=== PATIENT | female | born 1960 | race Caucasian/White ===

== ENCOUNTER 2020-12-06 19:51 | Emergency (ER) | payer MEDICARE, OTHER ==
[~2020-12-06] VITALS: Ht 162.6 cm; Wt 4812.6 kg
[~2020-12-06 19:51] MED LIST: ADVAIR 250-501 EACH INH; AMOXICILLIN500 MG PO; CLINDAMYCIN HC300 MG PO; DULOXETINE HCL60 MG PO; GABAPENTIN300 MG PO; IBUPROFEN600 MG PO; IBUPROFEN800 MG PO; MAGNESIUM400 MG PO; NABUMETONE750 MG PO; PROAIR HFA8.5 GM INH; SERTRALINE HCL100 MG PO; TYLENOL325 MG PO; VITAMIN B122500 MCG PO
--- NOTE | 2020-12-07 18:11 | EKG ---
[facility] [address] [place], [place] [address] Signed Normal sinus rhythm Normal ECG No previous ECGs available Confirmed by ANSHU DE LA TORRE MD ([id number]) on 12/07/2020 6:11:14 PM Electronically Signed By: ANSHU DE LA TORRE MD 12/07/201810 PATIENT NAME: VON SÁNCHEZ PARIS Electrocardiogram DATE OF : 58 PHYSICIAN: ANSHU DE LA TORRE MD REPORT #: [id number] REPORT IS CONFIDENTIAL AND NOT TO BE RELEASED WITHOUT AUTHORIZATION
== END 2020-12-06 21:34 | disposition home or self-care (01) ==
LOC: ED 19:51
DX: J44.1 Chronic obstructive pulmonary disease with (acute) exacerbation (principal); G40.909 Epilepsy, unspecified, not intractable, without status epilepticus; F17.200 Nicotine dependence, unspecified, uncomplicated; Z88.8 Allergy status to other drugs, medicaments and biological substances; Z79.899 Other long term (current) drug therapy
CPT/HCPCS: 71045; 80053; 84484; 85025; 93005; 93010; 99285-25

== ENCOUNTER 2021-04-11 16:26 | Emergency (ER) | payer MEDICARE, OTHER ==
[~2021-04-11] VITALS: Ht 162.6 cm; Wt 49.9 kg
--- OUTSIDE RECORDS SUMMARY | 2021-04-11 16:28 | XMS ---
PreManage Notification: VON SÁNCHEZ Security General Agent Events No recent Security Events currently on file CRITERIA MET - PDMP CARE PROVIDERS TEVIN [facility] Current PHONE: Unknown Curly has no Care Guidelines for this patient. EAleks VISIT COUNT (12 MO.) 2 TARI Fernando TOTAL 2 NOTE: Visits indicate total known visits. ED/UCC VISIT TRACKING (12 MO.) 04/11/2021 16:27 [facility] [place] TYPE: Emergency COMPLAINT: - HEADACHE 12/06/2020 19:52 [facility] [place] TYPE: Emergency COMPLAINT: - DIFFICULTY BREATHING DIAGNOSES: - Chronic obstructive pulmonary disease with (acute) exacerbation - Nicotine dependence, unspecified, uncomplicated - Epilepsy, unspecified, not intractable, without status epilepticus - Other residential (current) drug therapy - Shortness of breath - Allergy status to other drugs, medicaments and biological substances INPATIENT VISIT TRACKING (12 MO.) No inpatient visits to display in this time frame [email or web address]
--- NOTE | 2021-04-13 15:16 | EKG ---
[facility] [address] [facility] [facility] [place] [address] Signed Normal sinus rhythm Possible Left atrial enlargement Anterior infarct , age undetermined Abnormal ECG When compared with ECG of 06-DEC-2020 20:25, ST no longer elevated in Anterior leads T wave inversion now evident in Anterior leads Confirmed by ANGELIQUE DRAKE MD ([id number]) on 04/13/2021 3:16:26 PM Electronically Signed By: ANGELIQUE DRAKE MD 04/13/21 1516 PATIENT NAME: VON SÁNCHEZ PARIS Electrocardiogram DATE OF : 58 PHYSICIAN: ANGELIQUE DRAKE MD REPORT #: [id number] REPORT IS CONFIDENTIAL AND NOT TO BE RELEASED WITHOUT AUTHORIZATION
== END 2021-04-11 18:22 | disposition short-term general hospital (02) ==
LOC: ED 16:26
DX: I60.7 Nontraumatic subarachnoid hemorrhage from unspecified intracranial artery (principal); J44.9 Chronic obstructive pulmonary disease, unspecified; M06.9 Rheumatoid arthritis, unspecified; G43.909 Migraine, unspecified, not intractable, without status migrainosus; F17.200 Nicotine dependence, unspecified, uncomplicated; Z20.822 Contact with and (suspected) exposure to COVID-19; Z88.8 Allergy status to other drugs, medicaments and biological substances; Z79.899 Other long term (current) drug therapy; Z79.51 Long term (current) use of inhaled steroids
CPT/HCPCS: 36415; 70450; 70496; 70498; 71045; 80053; 85025; 85610; 85730; 93005; 93010; 96375; 99285-25; C9803; J1953; J2405; J7060; U0003

== ENCOUNTER 2021-07-13 04:30 | Inpatient (IN) | payer MEDICARE, OTHER ==
[~2021-07-13] VITALS: Ht 162.6 cm; Wt 50.0 kg
[~2021-07-13 04:30] MED LIST changes: +VITAMIN B122500 MC1 PO; -VITAMIN B122500 MCG PO
[2021-07-13] MEDS ORDERED: SEROQUEL100 MG PO (07:14)
[2021-07-13] MEDS ORDERED: VISTARIL25 MG PO (07:14)
[2021-07-13] MEDS ORDERED: CYCLOBENZAPRINE10 MG PO (07:15)
[2021-07-13] MEDS ORDERED: PULMICORT0.5 MG/2 M INH (07:15)
[2021-07-13] MEDS ORDERED: DRIZALMA SPRINK60 MG PO (07:16)
[2021-07-13] MEDS ORDERED: FORMOTEROL20 MCG/2 M (07:17)
[2021-07-13] MEDS ORDERED: ANORO ELLIPTA1 EACH INH (07:18)
[2021-07-13] MEDS ORDERED: TRELEGY ELLIPT1 EAC1 (07:18)
--- NOTE | 2021-07-13 08:30 | NUR ---
PT ADMITTED TO CCU ROOM 129 FOR ALTERED MENTAL STATUS/HYPERCARBIA. PT ARRIVED ON 3L/NC, RT WHEELING IN BIPAP. PT AWAKENS ON HER OWN STAFF START UNHOOKING THE MONITOR AND THEN SLIDES HERSELF OVER TO THE BED FROM THE GURNEY. ANSWERS A FEW BRIEF QUESTIONS, STATES NO NOT IN PAIN, YES SHE IS COLD, AND THEN GOES BACK TO SLEEP. TRIED TO AROUSE THE PATIENT AGAIN TO HAVE HER ANSWER ADMISSION QUESTIONS AND THE MOST SHE WILL DO IS MOVE HER HEAD A LITTLE AND REPOSITION HER BODY. ASSESSMENT DONE, LUNGS HAVE A FEW SCATTERED RHONCHI. SPO2 95% ON 3L, HAD BEEN 90% ON ROOM AIR. VSS, PT AFEBRILE.
--- NOTE | 2021-07-13 09:04 | NUR ---
BIPAP PLACED, 12/6 40%. THIS RN REMAINS AT BEDSIDE WHILE PT WEARING BIPAP.
[2021-07-13] MEDS ORDERED: DULOXETINE HCL30 MG PO (09:09)
--- NOTE | 2021-07-13 10:00 | NUR ---
BP'S HAVE DROPPED A BIT, LAST BP 84/50 MAP (66). DISCUSSED WITH DR CARMICHAEL, WILL START NS BOLUS AT 250ML/HR AND PLACE CATHETER FOR URINE COLLECTION TO SEND UA PT IS STILL VERY SOMNOLENT AND DIFFICULT TO AROUSE.
--- NOTE | 2021-07-13 10:35 | NUR ---
UA SENT AFTER PLACEMENT OF CABAN USING STERILE TECHNIQUE, BALLOON FILLED WITH 10CC WATER.
--- NOTE | 2021-07-13 12:00 | NUR ---
DAUGHTER IN TO SEE PT, PT EVENTUALLY WAKES UP FOR DAUGHTER AND IS NOW SITTING UP IN BED TALKING WITH HER, ALERT AND ORIENTED. WATER GIVEN PER REQUEST, PT HAD NO DIFFICULTY SWALLOWING. BOTH PT AND DAUGHTER UPDATED ON PLAN OF CARE AND ORDER FOR MRI FOR TOMORROW.
--- NOTE | 2021-07-13 13:12 | NUR ---
PT SITTING UP IN BED ENJOYING HER LUNCH, NO REQUESTS.
--- NOTE | 2021-07-13 15:00 | NUR ---
IN TO CHECK ON PT, ANSWER SOME QUESTIONS REGARDING PLAN. PT BECOMES VERY EMOTIONAL REGARDING HER METH USE AND OTHER LIFE ISSUES. REASSURED AND QUESTIONS ANSWERED.
--- NOTE | 2021-07-13 16:55 | NUR ---
PT ASSISTED WITH SITTING UP FOR DINNER.
--- NOTE | 2021-07-13 18:42 | NUR ---
DR CARMICHAEL ROUNDING ON UNIT, UPDATED ON PT STATUS, ORDER GIVEN TO TRANSFER PT TO MED SURG. SHOT FIREMAN NOTIFIED, PLAN TO KEEP PT HOUSE CONVENIENCE IN CCU FOR NOW. PT UPDATED WELL.
--- NOTE | 2021-07-13 18:45 | NUR ---
CABAN DC'D WITH 10CC WATER OUT OF THE BALLOON.
--- NOTE | 2021-07-13 20:00 | NUR ---
RECEIVED REPORT FROM DAY SHIFT RN. PT LAYING IN BED, REPORTS SOME SOB. EXP WHEEZING AUDIBLE. R.T IN ROOM TO GIVE PRN NEB TREATMENT. PT HAS BEEN UP TO BSC, VOIDED POST MEE PATRICK. CALL LIGHT WITHIN REACH CONTINUE TO MONITOR.
--- NOTE | 2021-07-13 21:20 | NUR ---
PT REQUESTING A PRN MED FOR SLEEP TRAZADONE. RESP EVEN AND UNLABORED CALL LIGHT WITHIN REACH WILL CONTINUE TO MONITOR.
--- NOTE | 2021-07-13 23:59 | NUR ---
PT SLEEPING IN BED IN NO ACUTE DISTRESS. PT RESP EVEN AND UNLABORED, CALL LGHT WITHIN REACH WILL CONTINUE TO MONITOR.
--- NOTE | 2021-07-14 02:21 | NUR ---
PT LAYING IN BED WITH EYES CLOSED , NO S.SX OF ANY DISTRESS NOTED. CALL LIGHT WITHIN REACH WILL CONTINUE TO MONITOR.
--- NOTE | 2021-07-14 04:34 | NUR ---
ASSISTED PT UP TO BSC, REPORTS SLEEPING WELL. VSS RSP EVEN AND UNLABORED. NO S/SX OF ANY DISTRESS. CALL LIGHT WITHIN REACH WILL CONTINUE TO MONITOR.
--- NOTE | 2021-07-14 08:00 | NUR ---
VITALS AND I&OS CHARTED. PATIENT UP TO BSC FOR VOID. PATIENT NOW SITITNG IN BED FOR BREAKFAST. CALL LIGHT IN EASY REACH
--- NOTE | 2021-07-14 08:43 | NUR ---
FAX WAS SENT TO [facility] REQUESTING INFO ON ANEURYSM CLIP.
--- NOTE | 2021-07-14 09:16 | NUR ---
DR CARMICHAEL IN TO SEE PT
--- NOTE | 2021-07-14 09:34 | NUR ---
PT UP TO USE BATHROOM FOR BOWEL MOVEMENT, BACK TO BED WITH CALL LIGHT IN HAND.
--- NOTE | 2021-07-14 10:00 | NUR ---
PATIENT LOOKING FORWARD TO DISCHARGE. TIP RECIEVED EARLIER FROM DR. CARMICHAEL FOR DISCHARGE TO HOME. O2 IN PLACE.
[2021-07-14] MEDS ORDERED: PREDNISONE20 MG PO (10:02)
[2021-07-14] MEDS ORDERED: SPIRIVA18 MCG INH (10:03)
[2021-07-14] MEDS ORDERED: ADVAIR 250-501 EACH INH (10:04)
--- NOTE | 2021-07-14 10:07 | NUR ---
Anna Marie is teary this morning regarding her decision to use meth. She states that she is no longer able to take care of herself at home. She states because of her shortness of breath she cannot prepare meals, do her laundry or clean her house. She states that her daughter does come over and help her. Her daughter also manages her medications and fills her pills for 30 days. She feels that she has a hard time making decisions, she also worries about money and again is rearful this morning. She states her daughter can pick her up today. Patient does feel that her care has been very good here in the hospital and has no care concerns. Pt encouraged to rest at this time and work on her thoughts and plans for discharge to home. Will attempt to get a care provider locally.
--- NOTE | 2021-07-14 12:00 | NUR ---
SITTNG UP IN BED FOR LUNCH. IS DRESSED, AWAITING RIDE HOME FROM DAUGHTER. PATIENT IS WITH INCREASED WOB WITH TALKING AND EXERTION. ENC PATIENT TO RELAX.
--- NOTE | 2021-07-14 13:00 | NUR ---
IV SITE DC'D WITH CATH INTACT.
--- NOTE | 2021-07-14 13:20 | NUR ---
DISCHARGE INSTRUCTIONS GIVEN WITH PATIENT DAUGHTER UNDERSTANDING.
--- NOTE | 2021-07-14 13:25 | NUR ---
DISCHARGED VIA W/C TO HOME ACCOMP BY DAUGHTER AND NURSING STAFF.
--- NOTE | 2021-07-15 19:05 | EKG ---
[facility] [address] [place] [address] Signed Normal sinus rhythm Rightward axis Borderline ECG When compared with ECG of 11-APR-2021 16:49, Non-specific change in ST segment in Anterior leads T wave inversion no longer evident in Anterior leads Confirmed by ANGELIQUE DRAKE MD ([id number]) on 07/15/2021 7:04:52 PM Electronically Signed By: ANGELIQUE DRAKE MD 07/15/21 1905 PATIENT NAME: VON SÁNCHEZ PARIS Electrocardiogram DATE OF : 58 PHYSICIAN: ANGELIQUE DRAKE MD REPORT #: [id number] REPORT IS CONFIDENTIAL AND NOT TO BE RELEASED WITHOUT AUTHORIZATION
== END 2021-07-14 13:25 | disposition home or self-care (01) | DRG 91 ==
LOC: ED 04:30 → CCU 07:41
PROVIDERS: ADMIT Hospitalist; ATTEND Hospitalist
PROC: 5A09357 Assistance with Respiratory Ventilation, Less than 24 Consecutive Hours, Continuous Positive Airway Pressure (ICD-10-PCS; principal; 2021-07-13)
DX: G92.8 Other toxic encephalopathy (principal); J96.22 Acute and chronic respiratory failure with hypercapnia; J44.1 Chronic obstructive pulmonary disease with (acute) exacerbation; Z20.822 Contact with and (suspected) exposure to COVID-19; T50.995A Adverse effect of other drugs, medicaments and biological substances, initial encounter; R47.81 Slurred speech; F19.10 Other psychoactive substance abuse, uncomplicated; M54.9 Dorsalgia, unspecified; M06.9 Rheumatoid arthritis, unspecified; F15.10 Other stimulant abuse, uncomplicated; R10.9 Unspecified abdominal pain; K08.89 Other specified disorders of teeth and supporting structures; F12.10 Cannabis abuse, uncomplicated; G89.29 Other chronic pain; F17.200 Nicotine dependence, unspecified, uncomplicated; Z99.81 Dependence on supplemental oxygen; Z79.899 Other long term (current) drug therapy; Z98.890 Other specified postprocedural states; Z88.8 Allergy status to other drugs, medicaments and biological substances
CPT/HCPCS: 36415; 36600; 51702; 70450; 70496; 70498; 71045; 80053; 81001; 82803; 85025; 85610; 85730; 87502; 93005; 93010; 94640; 94660; 99285-25; G0480; J2930; J7030; Q9967; U0003

== ENCOUNTER 2021-11-12 12:53 | Emergency (ER) | payer MEDICARE, OTHER ==
[~2021-11-12] VITALS: Ht 162.6 cm; Wt 49.9 kg
[~2021-11-12 12:53] MED LIST changes: +ANORO ELLIPTA1 EACH INH; +CYCLOBENZAPRINE10 MG PO; +DRIZALMA SPRINK60 MG PO; +DULOXETINE HCL30 MG PO; +FORMOTEROL20 MCG/2 M; +PREDNISONE20 MG PO; +PULMICORT0.5 MG/2 M INH; +SEROQUEL100 MG PO; +SPIRIVA18 MCG INH; +TRELEGY ELLIPT1 EAC1; +VISTARIL25 MG PO
--- OUTSIDE RECORDS SUMMARY | 2021-11-12 12:56 | XMS ---
PreManage Notification: VON SÁNCHEZ Security Salesperson Meats Events No recent Security Events currently on file CRITERIA MET - ANA LAURA CARE PROVIDERS ColinNadine Pipe Stem Aligner/Clinical Services Professional 09/08/2021-Current PHONE: [phone] PHOEBE ABARCA [facility] Current PHONE: Unknown Curly has no Care Guidelines for this patient. EAleks VISIT COUNT (12 MO.) Thomas Fernando TOTAL 4 NOTE: Visits indicate total known visits. ED/UCC VISIT TRACKING (12 MO.) 11/12/2021 12:54 [facility] OR TYPE: Emergency COMPLAINT: - DIFFICULTY BREATHING 07/13/2021 04:31 [facility] [place] TYPE: Emergency COMPLAINT: - STROKE SYMPTOMS 04/11/2021 16:27 [facility] [place] TYPE: Emergency COMPLAINT: - HEADACHE DIAGNOSES: - oysterman (current) use of inhaled steroids - Nicotine dependence, unspecified, uncomplicated - Rheumatoid arthritis, unspecified - Contact with and (suspected) exposure to COVID-19 - Altered mental status, unspecified - Migraine, unspecified, not intractable, without status migrainosus - Other intermediate (current) drug therapy - Chronic obstructive pulmonary disease, unspecified - Allergy status to other drugs, medicaments and biological substances - Nontraumatic subarachnoid hemorrhage from unspecified intracranial artery 12/06/2020 19:52 [facility] [place] TYPE: Emergency COMPLAINT: - DIFFICULTY BREATHING DIAGNOSES: - Epilepsy, unspecified, not intractable, without status epilepticus - Chronic obstructive pulmonary disease with (acute) exacerbation - Allergy status to other drugs, medicaments and biological substances - Other intermediate (current) drug therapy - Nicotine dependence, unspecified, uncomplicated - Shortness of breath INPATIENT VISIT TRACKING (12 MO.) 07/13/2021 07:41 [facility] TYPE: Critical Care COMPLAINT: - ALTERED MENTAL STATUS/HYPERCARBIA DIAGNOSES: - Other specified disorders of teeth and supporting structures - Allergy status to other drugs, medicaments and biological substances - Chronic obstructive pulmonary disease with (acute) exacerbation - Nicotine dependence, unspecified, uncomplicated - Adverse effect of other drugs, medicaments and biological substances, initial encounter - Acute and chronic respiratory failure with hypercapnia - Other stimulant abuse, uncomplicated - Contact with and (suspected) exposure to COVID-19 - Adverse effect of other drugs, medicaments and biological substances, initial encounter - Dorsalgia, unspecified - Acute and chronic respiratory failure with hypercapnia - Slurred speech - Rheumatoid arthritis, unspecified - Dependence on supplemental oxygen - Slurred speech - Nicotine dependence, unspecified, uncomplicated - Other chronic pain - Allergy status to other drugs, medicaments and biological substances - Other toxic encephalopathy - Unspecified abdominal pain - Other psychoactive substance abuse, uncomplicated - Other psychoactive substance abuse, uncomplicated - Other chronic pain - Rheumatoid arthritis, unspecified - Contact with and (suspected) exposure to COVID-19 - Other specified disorders of teeth and supporting structures - Other intermediate (current) drug therapy - Cannabis abuse, uncomplicated - Unspecified abdominal pain - Cannabis abuse, uncomplicated - Other specified postprocedural states - Dependence on supplemental oxygen - Other stimulant abuse, uncomplicated - Other bed bug exterminator (current) drug therapy - Dorsalgia, unspecified - Other specified postprocedural states - Chronic obstructive pulmonary disease with (acute) exacerbation 04/11/2021 20:17 [facility] TYPE: Critical Care DIAGNOSES: - Delirium due to known physiological condition - Nontraumatic subarachnoid hemorrhage, unspecified - Compression of brain - Chronic obstructive pulmonary disease, unspecified - Other specified postprocedural states - Encephalopathy, unspecified - Hypertensive crisis, unspecified - Tobacco use - Other psychoactive substance dependence, uncomplicated - Nontraumatic intracerebral hemorrhage, intraventricular - Nontraumatic intracerebral hemorrhage in hemisphere, cortical - Cerebral edema - Post-traumatic stress disorder, unspecified - Restlessness and agitation - Fibromyalgia [email or web address]
[2021-11-12] MEDS ORDERED: VENTOLIN HFA18 GM (13:26)
[2021-11-12] MEDS ORDERED: PREDNISONE20 MG PO (15:30)
[2021-11-12] MEDS ORDERED: DOXYCYCLINE HY100 MG PO (15:30)
--- NOTE | 2021-11-16 17:04 | EKG ---
[facility] [address] [facility] [place] [address] Signed Normal sinus rhythm Right atrial enlargement Cannot rule out Anterior infarct , age undetermined Abnormal ECG When compared with ECG of 13-JUL-2021 04:45, No significant change was found Confirmed by Nell Blanco MD () on 11/16/2021 5:04:37 PM Electronically Signed By: NELL BLANCO MD 11/16/21 1704 PATIENT NAME: VON SÁNCHEZ PARIS Electrocardiogram DATE OF : 58 PHYSICIAN: NELL BLANCO MD REPORT #: [id number] REPORT IS CONFIDENTIAL AND NOT TO BE RELEASED WITHOUT AUTHORIZATION
== END 2021-11-12 16:02 | disposition home or self-care (01) ==
LOC: ED 12:53
DX: U07.1 COVID-19 (principal); J44.1 Chronic obstructive pulmonary disease with (acute) exacerbation; F41.9 Anxiety disorder, unspecified; G40.909 Epilepsy, unspecified, not intractable, without status epilepticus; F17.200 Nicotine dependence, unspecified, uncomplicated; Z88.8 Allergy status to other drugs, medicaments and biological substances; Z79.899 Other long term (current) drug therapy
CPT/HCPCS: 36415; 36600; 71045; 80053; 81001; 82803; 83605; 83735; 83880; 84484; 85025; 87070; 87186; 87205; 87502; 93005; 93010; 94640; 96374; 99285-25; J1100; U0003

== ENCOUNTER 2022-01-14 07:52 | Emergency (ER) | payer MEDICARE, OTHER ==
[~2022-01-14] VITALS: Ht 162.6 cm; Wt 50.0 kg
[~2022-01-14 07:52] MED LIST changes: +DOXYCYCLINE HY100 MG PO; +VENTOLIN HFA18 GM
[2022-01-14] MEDS ORDERED: HYDROXYZINE HCL25 MG PO (08:14)
[2022-01-14] MEDS ORDERED: TAMIFLU75 MG PO (11:45)
[2022-01-14] MEDS ORDERED: VENTOLIN HFA18 GM INH (11:45)
[2022-01-14] MEDS ORDERED: PREDNISONE20 MG PO (11:45)
== END 2022-01-14 12:13 | disposition left against medical advice (07) ==
LOC: ED 07:52
DX: J10.1 Influenza due to other identified influenza virus with other respiratory manifestations (principal); J44.1 Chronic obstructive pulmonary disease with (acute) exacerbation; G40.909 Epilepsy, unspecified, not intractable, without status epilepticus; F17.200 Nicotine dependence, unspecified, uncomplicated; Z88.8 Allergy status to other drugs, medicaments and biological substances; Z79.899 Other long term (current) drug therapy; Z20.822 Contact with and (suspected) exposure to COVID-19
CPT/HCPCS: 36415; 71045; 80053; 82803; 85025; 87502; 94640; 94660; 96374; 99285-25; C9803; J2930; J7040; U0003

== ENCOUNTER 2022-01-16 10:42 | Inpatient (IN) | payer MEDICARE, OTHER ==
[~2022-01-16] VITALS: Ht 162.6 cm; Wt 45.0 kg
[~2022-01-16 10:42] MED LIST changes: +HYDROXYZINE HCL25 MG PO; +TAMIFLU75 MG PO; +VENTOLIN HFA18 GM INH
--- OUTSIDE RECORDS SUMMARY | 2022-01-16 10:44 | XMS ---
PreManage Notification: VON SÁNCHEZ Security Combat Engineer Events No recent Security Events currently on file CRITERIA MET - [facility] - 2 Visits in 30 Days CARE PROVIDERS Parrish Arreola Manager Photo/Medical Tech 09/08/2021-Current PHONE: [phone] TEVIN [facility] Current PHONE: Unknown Curly has no Care Guidelines for this patient. EAleks VISIT COUNT (12 MO.) [address] [place] [address] TOTAL 5 NOTE: Visits indicate total known visits. ED/UCC VISIT TRACKING (12 MO.) 01/16/2022 10:42 [facility] TYPE: Emergency COMPLAINT: - DIFFICULTY BREATHING 01/14/2022 07:52 [facility] OR TYPE: Emergency COMPLAINT: - DIFFICULTY BREATHING 11/12/2021 12:54 [facility] TYPE: Emergency COMPLAINT: - DIFFICULTY BREATHING DIAGNOSES: - Nicotine dependence, unspecified, uncomplicated - Chronic obstructive pulmonary disease with (acute) exacerbation - Other penitentiary (current) drug therapy - Shortness of breath - COVID-19 - Epilepsy, unspecified, not intractable, without status epilepticus - Allergy status to other drugs, medicaments and biological substances - Anxiety disorder, unspecified 07/13/2021 04:31 [facility] TYPE: Emergency COMPLAINT: - STROKE SYMPTOMS 04/11/2021 16:27 [facility] TYPE: Emergency COMPLAINT: - HEADACHE DIAGNOSES: - Altered mental status, unspecified - Migraine, unspecified, not intractable, without status migrainosus - Other penitentiary (current) drug therapy - Chronic obstructive pulmonary disease, unspecified - Allergy status to other drugs, medicaments and biological substances - Nontraumatic subarachnoid hemorrhage from unspecified intracranial artery - [facility] (current) use of inhaled steroids - Nicotine dependence, unspecified, uncomplicated - Rheumatoid arthritis, unspecified - Contact with and (suspected) exposure to COVID-19 INPATIENT VISIT TRACKING (12 MO.) 07/13/2021 07:41 [facility] TYPE: Critical Care COMPLAINT: - ALTERED MENTAL STATUS/HYPERCARBIA DIAGNOSES: - Acute and chronic respiratory failure with [...] of teeth and supporting structures - Other long lines operator (current) drug therapy - Cannabis abuse, uncomplicated - Unspecified abdominal pain - Cannabis abuse, uncomplicated - Other specified postprocedural states - Dependence on supplemental oxygen - Other stimulant abuse, uncomplicated - Other long lines operator (current) drug therapy - Dorsalgia, unspecified - Other specified postprocedural states - Chronic obstructive pulmonary disease with (acute) exacerbation - Other specified disorders of teeth and [...] biological substances, initial encounter - Dorsalgia, unspecified 04/11/2021 20:17 [facility] TYPE: Critical Care DIAGNOSES: - Other specified postprocedural states - Encephalopathy, unspecified - Hypertensive crisis, unspecified - Tobacco use - Other psychoactive substance dependence, uncomplicated - Nontraumatic intracerebral hemorrhage, intraventricular - Nontraumatic intracerebral hemorrhage in hemisphere, cortical - Cerebral edema - Post-traumatic stress disorder, unspecified - Restlessness and agitation - Fibromyalgia - Delirium due to known physiological condition - Nontraumatic subarachnoid hemorrhage, unspecified - Compression of brain - Chronic obstructive pulmonary disease, unspecified [email or web address]
--- NOTE | 2022-01-16 18:10 | NUR ---
PATIENT ARRIVED TO CCU VIA STRETCHER FROM ED. WILLEM RN IN TO BEDSIDE REPORT. PATIENT TRANSFERED OVER TO BED WITH 2 RN ASSIST. PATIENT ON 3L. PATIENT IS ON 3L AT HOME PER REPROT. PATIENT IS FORGETFUL AND DIFFICULT TO UNDERSTAND. WILL CONTINUE TO CLOSELY MONITOR.
--- NOTE | 2022-01-16 19:45 | NUR ---
RN IN ROOM TO ASSESS PT - PT NOTED TO HAVE SIGNIFICANT ST ELEVATION ON HR MONITOR AT RN STATION. PT COMPLAINS OF 8/10 CHEST PAIN WHEN ASKED IF EXPERIENCING ANY. STATES SHE HAS HAD CHEST PAIN "FOR ABOUT A WEEK". OTHER VS NOTED TO WNL. SENIOR GAME ADVISOR NOTES TIGHT WHEEZING LUNG SOUNDS THROUGHOUT, ON 3L NC AT THIS TIME. PT APPEARS DROWSY AND SPEACH IS MUMBLED DUE TO LACK OF TEETH. MD NOTIFIED OF FINDINGS AND CONCERN. 12 LEAD EKG ORDERED - ASSESSED AT BEDSIDE BY MD. NO FURTHER ORDERS RECEIVED.
--- NOTE | 2022-01-16 20:28 | NUR ---
PT UP TO BEDSIDE COMMODE WITH STANDBY ASSIST. PT TOLERATED WELL, AND MAINTAINED SPO2 ABOVE 95%. PT NOW BACK IN BED, SIDE RAILS UP, CALL LIGHT WITHIN REACH, WARM BLANKET PROVIDED.
--- NOTE | 2022-01-16 21:00 | NUR ---
RN IN ROOM TO ADMINISTER SHCEDULED MEDICATIONS. DINNER BOX PROVIDED TO PT, ATE 100%. IV SITE PATENT AND CONT FLUIDS STARTED. PT TITRATED TO 2L BY RT AFTER NEB TX, STATES PT REPORTS 2L IS CHRONIC BASELINE. PT EDUCATED DOPE MAINTENANCE WORKER LIGHT AND ORIENTED TO ROOM.
--- NOTE | 2022-01-16 22:19 | NUR ---
RN ROUNDING ON PT - RESTING ON BACK WITH EYES CLOSED. RR EVEN AND UNLABORED. SPO2 97% ON 2L, RR 13.
--- NOTE | 2022-01-17 01:13 | NUR ---
RN ROUNDING ON PT - PT RESTING ON SIDE, RR EVEN AND UNLABORED. SP02 97% ON 2L NC. CALL LIGHT AT SIDE.
--- NOTE | 2022-01-17 02:26 | NUR ---
RN ROUNDING ON PT - PT WAKES EASILY FOR ORAL TEMP CHECK, ORIENTED. DENIES NEEDS. CALL LIGHT AT SIDE. REMAINS AFEBRILE.
--- NOTE | 2022-01-17 03:20 | NUR ---
RN ROUNDING ON PT - RESTING ON SIDE WITH EYES CLOSED. VS WNL. CALL LIGHT IN REACH.
--- NOTE | 2022-01-17 03:54 | NUR ---
RN IN ROOM TO ANSWER CALL LIGHT - PT UP TO BSC STANDBY ASSIST. MINIMAL DESAT WITH AMBULATION/MOVEMENT. PT BACK TO BED AND QUICKLY RECOVERED ON 2L NC. EX WHEEZES HEARD IN LOWER LUNG HWANG, REMAIN TIGHT. PT ORIENTED AND CONVERSING APPROPRIATLY. DENIES FURTHER NEEDS, CALL LIGHT IN REACH.
--- NOTE | 2022-01-17 05:54 | NUR ---
RN ROUNDING ON PT - RESTING ON SIDE WITH EYES CLOSED. RR 16, SP02 96% ON BASELINE O2 OF 2L. CALL LIGHT AT SIDE.
--- NOTE | 2022-01-17 07:00 | EKG ---
[facility] [address] [facility] [place] [address] Signed Normal sinus rhythm Right atrial enlargement Rightward axis Pulmonary disease pattern Abnormal ECG When compared with ECG of 12-NOV-2021 13:17, No significant change was found Confirmed by ANSHU DE LA TORRE MD ([id number]) on 01/17/2022 7:00:20 AM Electronically Signed By: ANSHU DE LA TORRE MD 01/17/22 0700 PATIENT NAME: VON SÁNCHEZ PARIS Electrocardiogram DATE OF : 58 PHYSICIAN: ANSHU DE LA TORRE MD REPORT #: [id number] REPORT IS CONFIDENTIAL AND NOT TO BE RELEASED WITHOUT AUTHORIZATION
--- NOTE | 2022-01-17 07:03 | EKG ---
[facility] [address] [facility] [place], [place] [address] Signed Normal sinus rhythm Possible Anterior infarct , age undetermined Abnormal ECG When compared with ECG of 16-JAN-2022 10:59, (Unconfirmed) No significant change was found Confirmed by ANSHU DE LA TORRE MD ([id number]) on 01/17/2022 7:02:58 AM Electronically Signed By: ANSHU DE LA TORRE MD 01/17/22 0703 PATIENT NAME: VON SÁNCHEZ PARIS Electrocardiogram DATE OF : 58 PHYSICIAN: ANSHU DE LA TORRE MD REPORT #: [id number] REPORT IS CONFIDENTIAL AND NOT TO BE RELEASED WITHOUT AUTHORIZATION
--- NOTE | 2022-01-17 07:30 | NUR ---
REPORT RECIEVED FROM ANIMATOR RN. PATIENT HAD A GOOD NIGHT AND WAS ABLE TO GET SOME REST. PATIENTS MORE ALERT THIS MORNING. WILL CONTINUE TO CLOSELY MONTIOR.
--- NOTE | 2022-01-17 10:00 | NUR ---
PATIENT UP TO THE BEDSIDE CAMMODE WITH CENTRAL PROCESSING TECH. PATIENT DID BECOME SOB AND NEEDED TO SIT UP AT THE BEDSIDE TO CATCH HER BREATH. PATIENT OXYGEN INCREASED UNTIL PATIENT RECOVERED. WILL CLOSELY MONITOR.
--- NOTE | 2022-01-17 11:30 | NUR ---
THIS RN OVER TO UPDATE MD DE LA TORRE. PATIENT UP TO CAMMODE AND HAVING A DIFFICULT TIME RECOVERING FROM ACTIVITY. WORK OF BREATHING INCREASED. SPO2 DECREASED. PATIENT UNABLE TO SPEAK. RT AT THE BEDSIDE TO DO A NEB AND ASSESS. PATIENT WILL START BACK ON SOLUMEDROL. WILL PLACE CATHETER AND HAVE PATIENT STRICT BEDREST. WILL CONTINUE TO CLOSELY MONITOR.
--- NOTE | 2022-01-17 13:00 | NUR ---
PATIENT HAD CABAN CATHETER PLACED PER ORDERS. PATIENT TOELRATED WELL. PER MD KEEP PATIENT BEDREST. PATIENT DOES NOT TOELRATE ACTIVITY TO GET UP TO THE CAMMODE TO URINATE AND DOES NOT TOELRATE ACTIVITY IN THE BED TO USE THE BEDPAN. PATIENT UPDATED ON PLAN OF CARE AND IS AGREEABLE TO PLAN OF CARE. WILL CONTINUE TO CLOSELY MONITOR.
[2022-01-17] MEDS ORDERED: VENTOLIN HFA18 GM INH (13:40)
--- NOTE | 2022-01-17 15:15 | NUR ---
PATIENTS WORK OF BREATHING WORSENING. RT CALLED AND NOTIFIED AND AT THE BEDSIDE. PATIENT HAS BEEN BED REST.
--- NOTE | 2022-01-17 16:00 | NUR ---
THIS RN HAS BEEN IN WITH PATIENT FOR PASY HOUR. PATIENT STARTING TO HAVE HALLUCINATION AND KNOWS SHE IS HALLUCINATING. PATIENTS WORK OF BREATHING HAS ALSO CONTINUED TO GET WORSE. PATIENT USING ACCESSORY MUSCLES AND STATES "I AM TIRED, ITS SO HARD TO BREATH". RT WAS CALLED TO THE ROOM TO ASSESS PATIENT. PATIENT ON 3L NC WITH SPO2 92%. RR- 26. NEB GIVEN. MD DE LA TORRE NOTIFIED. NEW ORDERS TO GET VBG AND THEN PLACE PATIENT ON BIPAP. PATIENT WORK OF BREATHING IMPROVED WITH NEB AND BEING PLACED ON BIPAP. PATIENT STATES "I CAN BREATH BETTER AGAIN" WILL CONTINUE TO CLOSELY MONITOR.
[2022-01-17] MEDS ORDERED: DULOXETINE HCL30 MG PO (16:56)
[2022-01-17] MEDS ORDERED: PREDNISONE20 MG PO (17:02)
--- NOTE | 2022-01-17 17:24 | NUR ---
PATIENT ON BIPAP STILL AT THIS ITME. PATIENT CONTINUES TO BE CONFUSED AT THIS TIME. WILL CONTINUE TO ENCOURAGE THE BIPAP. WILL CONTINUE TO CLOSELY MONITOR.
--- NOTE | 2022-01-17 18:30 | NUR ---
PATIENT LAYING DOWN SLEEPING ON BIPAP AT THIS TIME. PATIENT OPENS EYES UPON NURSE WALKING INTO PATIENT ROOM TO DO I/OS. PATIENT DENIES ANY OTHER NEEDS AT THIS TIME. WILL CONITNUE TO CLOSELY MONITOR.
--- NOTE | 2022-01-17 20:00 | NUR ---
PT IS AWAKE IN BED W/ BIPAP IN PLACE. PT REQUESTING TO TAKE BIPAP OFF FOR A LITTLE WHILE; SWITCHED FROM BIPAP TO NC AT 3LPM SO PT IS ABLE TO MOISTEN HER MOUTH. RT NOTIFIED. VSS. TOLERATING IVF ORDERED. CABAN IN PLACE AND DRAINING WELL. CALL LIGHT AT HAND. WILL CONT TO MONITOR.
--- NOTE | 2022-01-17 22:00 | NUR ---
PT IS LYING IN BED W/ HER EYES CLOSED AND APPEARS COMFORTABLE. VSS. NO DISTRESS NOTED AT THIS TIME. CABAN DRAINING. PT IS TOLERATING IVF ORDERED. CALL LIGHT WITHIN REACH. WILL CONT TO MONITOR.
--- NOTE | 2022-01-18 00:30 | NUR ---
PT RESTING IN BED W/ HER EYES CLOSED AND APPEARS COMFORTABLE. CALL LIGHT WITHIN REACH. VSS. WILL CONT TO MONITOR.
--- NOTE | 2022-01-18 02:29 | NUR ---
PT RESTING IN BED WITH HER EYES CLOSED AT THIS TIME; APPEARS COMFORTABLE. CABAN PATENT. TOLERATING IVF. VSS. CALL LIGHT WITHIN REACH. WILL CONT TO MONITOR.
--- NOTE | 2022-01-18 03:45 | NUR ---
PT IS RESTING IN BED WITH HER EYES CLOSED AND APPEARS COMFORTABLE AT THIS TIME. TOLERATING IVF ORDERED. CABAN CATHETER WITH ADEQUATE OUTPUT. VSS. RESPIRATIONS EVEN AND UNLABORED. NO DISTRESS NOTED. WILL CONT TO MONITOR.
--- NOTE | 2022-01-18 06:33 | NUR ---
MEDICATION ADMINISTERED ORDERED THIS AM. PT IS RESTING IN BED WITH HER EYES CLOSED AND STATES SHE SLEPT WELL DURING THE NIGHT. VSS. CABAN CATHETER IN PLACE. CALL LIGHT WITHIN REACH. WILL CONT TO MONITOR.
--- NOTE | 2022-01-18 10:54 | NUR ---
PT IN BED FEELS TIRED AND COUGH IS STILL ABOUT THE SAME. DOES NOT HAVE MUCH OF A APPIATE AT THIS TIME. CABAN DRAINING YELLOW IN COLOR URINE.
--- NOTE | 2022-01-18 12:15 | NUR ---
PT SITTING AT THE EDGE OF THE BED EATTING LUNCH AT THIS TIME. O2 REMAINS AT 3L'S.
--- NOTE | 2022-01-18 14:07 | NUR ---
PT UP IN THE CHAIR AT THIS TIME, PROVIDED PT WITH MYLAX IN SOME ENSURE CLEAR JUICE. PT VERY TALKATIVE AT THIS TIME WITH HER O2 AT 95% ON 3L'S NC.
--- NOTE | 2022-01-18 18:15 | NUR ---
PT SAT IN BED AND ATE DINNER DID WELL. ENJOYED HER DINNER. CONTIOUES TO HAD 2L'S VIA NC WITH SPO2 97%.
--- NOTE | 2022-01-18 19:09 | NUR ---
REPORT GIVEN AT THIS TIME ALL QUESTIONS ANSWERED.
--- NOTE | 2022-01-18 20:00 | NUR ---
REPORT RECEIVED FROM DAY SHIFT RN. PT IS LYING IN BED, WATCHING TV WITH CALL LIGHT AT HAND AT THIS TIME. VSS. TOLERATING O2 VIA NC. WILL CONT TO MONITOR.
--- NOTE | 2022-01-18 22:00 | NUR ---
PT TEARFUL AND APPEARED ANXIOUS UPON ASSESSMENT. THIS RN INQUIRED ABOUT PT'S TEARFULNESS; PT STATED SHE WAS WATCHING [employer] MOVIES THAT WERE MAKING HER ANXIOUS. PT W/ REQUEST FOR PRN; PRN ADMINISTERED ORDERED PER PT REQUEST FOR ANXIETY. COMPLIANT W/ MEDICATION ADMINISTRATION AND ASSESSMENT. VSS. SMALL AMOUNT OF URINE NOTED TO LINENS UNDERNEATH PT. CABAN NOTED TO BE TWISTED UNDER PT'S LEG. PERSONAL HYGEINE PERFORMED AND CABAN CATHETER REPOSITIONED AND WORKING ADEQUATELY AT THIS TIME. CALL LIGHT WITHIN REACH. WILL CONTINUE TO MONITOR.
--- NOTE | 2022-01-19 00:30 | NUR ---
PT RESTING IN BED WITH HER EYES CLOSED AND APPEARS COMFORTABLE. VSS. NO DISTRESS NOTED. RESPIRATIONS EVEN AND UNLABORED. CABAN PATENT. TOLERATING IVF ORDERED. CALL LIGHT WITHIN REACH. WILL CONT TO MONITOR.
--- NOTE | 2022-01-19 02:28 | NUR ---
PT RESTING IN BED WITH HER EYES CLOSED AND APPEARS COMFORTABLE. VSS. NO DISTRESS NOTED AT THIS TIME. TOLERATING IVF ORDERED. CABAN CATHETER PATENT W/ ADEQUATE OUTPUT. CALL LIGHT AT HAND. WILL CONT TO MONITOR.
--- NOTE | 2022-01-19 03:26 | NUR ---
PT IS RESTING IN BED AND APPEARS COMFORTABLE AT THIS TIME. VSS. NO DISTRESS NOTED. RESPIRATIONS EVEN AND UNLABORED. CALL LIGHT WITHIN REACH. WILL CONT TO MONITOR.
--- NOTE | 2022-01-19 05:51 | NUR ---
PT RESTING IN BED WITH HER EYES CLOSED AND APPEARS COMFORTABLE. VSS. NO DISTRESS NOTED. CALL LIGHT WITHIN REACH. WILL CONT TO MONITOR.
--- NOTE | 2022-01-19 06:43 | NUR ---
IN TO CHECK ON PT. PT SLEEPING IN BED. CABAN EMPTIED. NO FURTHER NEEDS. CALL LIGHT WITHIN REACH.
--- NOTE | 2022-01-19 08:43 | NUR ---
ASSESSMENT COMPLETED. PT UP INTO CHAIR WITH ONE PERSON ASSIST. RESPIRATORY RATE IN THE 30S WITH ACTIVITY AND HEART RATE UP TO 100. PT ABLE TO MAINTIAN SPO2 GREATER THAN 90% ON 2 L WITH ACTIVITY. LUNGS SOUND TIGHT WITH EXPIRATORY WHEEZE NOTED. IV FLUIDS INFUSING. PT CABAN CATHETER PRODUCING LARGE AMOUNTS OF DILUTE URINE. PT NOW EATING BREAKFAST. PLAN OF CARE FOR DAY ESTABLISHED. MEDS ADMINISTERED. CALL LIGHT WITHIN REACH. WILL CONTINUE TO MONITOR.
--- NOTE | 2022-01-19 11:03 | NUR ---
I was able to visit with Qing today. She is oriented to person, place, and time. She admits that she is getting "harder to help at home" however, she does plan to return to home with the assistance of her daughter and caregiver. She is worried about her budget and would like to know the cost of her medications that she will need to purchase when she is discharged from the hosptial. This will be passed on to involved staff members and pharmacy. Qing does get assistance with her heating costs through [employer] she also get 16 dollars per month in food stamps, she is on medicare dissability. She is very talkative today but does get SOB when talking for a period of time. She does talk about her past career working for the [employer], and smiles and laughs when telling the stories. Qing is on 3L of 02 at home. She does not smoke. She has no other questions or concerns at this time. Qing is also appreciative of the CREOSOTING ENGINEER Leticia who took time to braid her hair and care for her this day.
--- NOTE | 2022-01-19 14:23 | NUR ---
medications reconciled using pharmacy records and PCP chart notes
--- NOTE | 2022-01-19 15:03 | NUR ---
PT RESTING IN BED ON LEFT SIDE. BREATHING EVEN AND UNLABOER. SOLUMEDROL ADMINISTERED. SPO2 = 95% ON 2 L NC. [facility] WILL CONTINUE TO MONITOR.
--- NOTE | 2022-01-19 17:07 | NUR ---
PT NOW SITTING UP IN BED EATING DINNER. ASSESSMENT COMPLETED. PT REMAINS ON 2 L SPO2 = 94$. HEART RATE IN THE 90S AT REST. UP TO 110-120 WITH ACTIVITY. PT STILL TACHYPENIC, USING ACCESSORY MUSCLES. NOW SALINE LOCKED. CALL LIGHT WITHIN REACH. WILL CONTINUE TO MONITOR.
--- NOTE | 2022-01-19 17:56 | NUR ---
PT REQUESTING BREATHING TX. RT IN ROOM AT THIS TIME
--- NOTE | 2022-01-19 19:50 | NUR ---
REPORT RECEIVED FROM DAY SHIFT RN. PT IS SITTING UP IN BED, WATCHING TV. CALL LIGHT WITHIN REACH. VSS. PT REPORTS HAVING SOME ANXIETY THIS EVENING AND IS REQUESTING HER PRN VISTARIL ALONG W/ SOMETHING TO HELP HER SLEEP TONIGHT. WILL CONT TO MONITOR.
--- NOTE | 2022-01-19 21:00 | NUR ---
PRNs ADMINISTERED PER PT REQUEST. PT REMAINS SITTING UP IN BED AND WATCHING TV W/O NOTED DISTRESS. VERBALIZES NEEDS APPROPRIATELY. CALL LIGHT AT HAND. CABAN PATENT W/ CLEAR YELLOW URINE DRAINING. VSS.
--- NOTE | 2022-01-19 21:20 | NUR ---
IN PTS ROOM TO EMPTY CABAN. PT RESTING. CABAN EMPTIED. PT REQ MEDS TO HELP HER SLEEP. RN NOTIFIED. NO FURTHER NEEDS. CALL LIGHT WITHIN REACH.
--- NOTE | 2022-01-20 00:32 | NUR ---
PT RESTING IN BED W/ HER EYES CLOSED AND APPEARS COMFORTABLE. CALL LIGHT WITHIN REACH. VSS. CABAN PATENT. WILL CONT TO MONITOR.
--- NOTE | 2022-01-20 01:15 | NUR ---
PT SITTING UP IN BED. CABAN EMPTIED. FRESH ICE WATER PROVIDED TO PT. NO FURTHER NEEDS. CALL LIGHT WITHIN REACH.
--- NOTE | 2022-01-20 02:00 | NUR ---
PT TURNING IN BED INDEPENDENTLY. Danial CABAN PATENT. CALL LIGHT AND WATER WITHIN REACH. WILL CONT TO MONITOR.
--- NOTE | 2022-01-20 04:22 | NUR ---
PT LAYING IN BED. PT CABAN EMPTIED. PT TEMP COMPLETE. PT REQ COFFEE. RN OK. COFFEE GIVEN TO PT. NO FURTHER NEEDS. CALL LIGHT WITHIN REACH
--- NOTE | 2022-01-20 04:56 | NUR ---
PT IS SITTING IN BED DRINKING COFFEE THIS MORNING. VSS. CALL LIGHT WITHIN REACH. MEE PATENT. NO DISTRESS NOTED. WILL CONT TO MONITOR.
--- NOTE | 2022-01-20 05:47 | NUR ---
PT IS AWAKE IN BED, DRINKING COFFEE AT THIS TIME. PLEASANT MOOD. NO SIGNS OF DISTRESS NOTED AT THIS TIME. VSS. CALL LIGHT WITHIN REACH. WILL CONT TO MONITOR.
--- NOTE | 2022-01-20 07:30 | NUR ---
REPORT RECIEVED. PATIENT RESTING WITH HOB ELEVATED O2 IN PLACE.
--- NOTE | 2022-01-20 09:00 | NUR ---
TOOK BREAKFAST WELL. ROUTINE MEDS GIVEN. CARLOS A MOYER.
--- NOTE | 2022-01-20 10:45 | NUR ---
TO MED SURG VIA BED. REPORT TO Rigoberto HARRISON RN.
--- NOTE | 2022-01-20 11:06 | NUR ---
PATIENT TO MED SURG, ASSESSMENT IS DONE. PATIENT IS WEARING CHRONIC 2L OF O2 VIA NC. PATIENT DENIES PAIN OR NAUSEA, ENDORSES MEMORY ISSUES FROM PAST STROKE. CALL LIGHT WITHIN REACH, BED ALARM IS ON.
--- NOTE | 2022-01-20 13:20 | NUR ---
PATIENT GIVEN SUPPOSITORY, LYING ON HER SIDE, CALL LIGHT WITHIN REACH
--- NOTE | 2022-01-20 14:03 | NUR ---
PATIENT WORKED WITH PHYSICAL THERAPY, DID HAVE BM. PATIENT IS UP TO CHAIR, PT ASKED HER TO STAY UP TO CHAIR FOR AN HOUR. NO OTHER NEEDS AT THIS TIME.
--- NOTE | 2022-01-20 19:15 | NUR ---
RECEIVED REPORT FROM GASTON SMITH. PT IS RESTING IN BED A&O X4. CALL LIGHT WITHIN REACH, NO FURTHER NEEDS AT THIS TIME.
--- NOTE | 2022-01-20 21:30 | NUR ---
IN PT ROOM FOR INFORMATION SECURITY ARCHITECT, ASSESSMENT, VS, I/O'S. PT A&O X4. PT REPORTS NO PAIN, NAUSEA, SOB, N/T, DIZZINESS AT THIS TIME. VSS. X2 IV SITES WNL AND SALINE LOCKED. PT ON 2L OF O2 VIA NC, LUNGS SOUNDS ARE DIMINISHED IN BASES, AND INSP WHEEZE ON LFT SIDE, EXP WHEEZE ON RT SIDE IN UPPER LOBES. PULSES PRESENT THROUGHOUT, BOWEL TONES ACTIVE X4. NO SIGNS OF SKIN BREAKDOWN, PT IS ABLE TO MOVE SELF IN BED. CALL LIGHT WITHIN REACH, NO FURTHER NEEDS AT THIS TIME.
--- NOTE | 2022-01-20 21:30 | NUR ---
RECEIVED REPORT FROM GASTON SMITH. PT IS RESTING IN BED A&O X4. CALL LIGHT WITHIN REACH, NO FURTHER NEEDS AT THIS TIME.
--- NOTE | 2022-01-20 22:30 | NUR ---
IN PT ROOM D/T PT NEEDING TO USE BEDSIDE COMMODE, OUTPUT RECORDED. PT STATES DIFFICULTY FALLING ASLEEP, PRN MELATONIN GIVEN. CALL LIGHT WITHIN REACH, NO FURTHER NEEDS AT THIS TIME.
--- NOTE | 2022-01-21 00:48 | NUR ---
PT RESTING IN BED W/EYES CLOSED. RESPIRATIONS ARE EVEN AND UNLABORED, NO SIGNS OF DISTRESS. CALL LIGHT WITHIN REACH.
--- NOTE | 2022-01-21 01:38 | NUR ---
PT RESTING W/EYES CLOSED. RESPIRATIONS ARE EVEN AND UNLABORED, NO SIGNS OF DISTRESS. CALL LIGHT WITHIN REACH. 2L O2 VIA NC. TELE SHOWS SR W/ HR IN 70'S.
--- NOTE | 2022-01-21 03:23 | NUR ---
PT SLEEPING W/KNEES UP AND EYES CLOSED. RESPIRATIONS EVEN AND UNLABORED, NO SIGNS OF DISTRESS. PT REMAINS ON 2L OF O2 VIA NC. CALL LIGHT WITHIN REACH.
--- NOTE | 2022-01-21 03:37 | NUR ---
IN PT ROOM D/T SITTING UP IN BED. PT REPORTS SOB. LUNG SOUNDS ARE TIGHT AND DIMINISHED THROUGHOUT. O2 SAT VIA PULSE OX IS AT 96%. CALLED RT D/T PT REQUEST FOR BREATHING TX. RT NOW IN ROOM. NO ACUTE CHANGES FROM PREVIOUS ASSESSMENT. PT REMAINS ON 2L O2 VIA NC.
--- NOTE | 2022-01-21 05:06 | NUR ---
PT RESTING IN BED W/EYES CLOSED. RESPIRATIONS ARE EVEN AND UNLABORED, NO SIGNS OF DISTRESS. CALL LIGHT WITHIN REACH. PT ON 2L O2 VIA NC. PT APPEARS COMFORTABLE AT THIS TIME.
[2022-01-21] MEDS ORDERED: PREDNISONE20 MG PO (09:54)
--- NOTE | 2022-01-21 10:56 | NUR ---
PATIENT IS RESTING IN BED, PHONE GIVEN AND SHE IS CALLING HER DAUGHTER TO SEE WHEN SHE GETS TO HAVE A RIDE HOME.
--- NOTE | 2022-01-21 11:55 | NUR ---
DAUGHTER CALLED AND PLAN OF DISCHARGE DISCUSSED.
--- NOTE | 2022-01-21 12:58 | NUR ---
WATCHING TV, STATES THAT SHE PLANS TO GO HOME MAYBE TODAY. PATIENT STATES SHE PLANS TO GO HOME TO HER OWN HOME.PT. HAS 2 DAUGHTERS THAT WILL HELP WITH CARE. ALSO,HAS 3 CATS AT HOME THAT ARE HER BEST FRIENDS PER PATIENT.
== END 2022-01-21 13:35 | disposition home or self-care (01) | DRG 193 ==
LOC: ED 10:42 → CCU 16:36 → MS 01-20 10:10
PROVIDERS: ADMIT Internal Medicine; ATTEND Internal Medicine
PROC: 5A09357 Assistance with Respiratory Ventilation, Less than 24 Consecutive Hours, Continuous Positive Airway Pressure (ICD-10-PCS; principal; 2022-01-16)
DX: J10.1 Influenza due to other identified influenza virus with other respiratory manifestations (principal); J96.01 Acute respiratory failure with hypoxia; J96.02 Acute respiratory failure with hypercapnia; Z20.822 Contact with and (suspected) exposure to COVID-19; J43.9 Emphysema, unspecified; M54.9 Dorsalgia, unspecified; G89.29 Other chronic pain; B19.20 Unspecified viral hepatitis C without hepatic coma; M06.9 Rheumatoid arthritis, unspecified; G40.909 Epilepsy, unspecified, not intractable, without status epilepticus; F17.210 Nicotine dependence, cigarettes, uncomplicated; Z90.49 Acquired absence of other specified parts of digestive tract; Z98.890 Other specified postprocedural states; Z88.8 Allergy status to other drugs, medicaments and biological substances; Z79.899 Other long term (current) drug therapy
CPT/HCPCS: 36415; 71045; 80048; 80053; 82803; 83735; 83880; 84484; 85025; 87502; 93005; 93010; 94640; 94660; 94760; 97162; C9803; J1650; J2920; J2930; J3480; Q0177; U0003

== ENCOUNTER 2022-04-04 14:14 | Inpatient (IN) | payer MEDICARE, OTHER ==
[~2022-04-04] VITALS: Ht 162.6 cm; Wt 44.2 kg
--- NOTE | 2022-04-04 18:43 | NUR ---
pt admitted to ccu rm 129 need to urinated amb from strecher to br with assist during full body 2 rn skin assessment with herb. skin intact - kelly prominences noted on back/coccyx area - pink alleyvn pad placed to protect. void in hat 50 ml of urine sent to lab per order - pt was eyes closed and somulent on arrival and after explanation and encouragement pt woke up and agreed to assist and participate in her care - at first she was reluctant. when asked if she wanted a nicotine patch she opens up eyes and smiles and says YES PLEASE! pt states when asked that she be a dnr - left alone when she is ready to - no intervention. when returned to bed - pt call light in reach and rn oriented pt to room, light and equipment, pt is not really attentive, and falls to sleep, if stimulated she will answer after you really encourage her to answer or participate - but pt is very un interested.
--- NOTE | 2022-04-04 19:03 | NUR ---
PT DE SATS ON 2LNC AT REST - RT CALLED AND IN ROOM NOW FOR SET UP OF BIPAP - PT AGREEABLE AT THIS TIME.
--- NOTE | 2022-04-04 20:00 | NUR ---
PATIENT IS RESTING IN BED WITH BIPAP IN PLACE. PATIENT ALERTS TO VOICE BUT IS DROWSY. SOFT BP NOTED. PATIENT HAS ONLY VOIDED SMALL AMOUNT ON ARRIVAL AND DOES NOT APPEAR INTERESTED OR SAFE FOR PO MEDS OR FLUIDS. LUNG SOUNDS ARE COARSE AND DIMINISHED THROUGHOUT. IV SITE IN RIGHT HAND PULLED BY PATIENT. DC WNL. BED ALARM ACTIVE.
--- NOTE | 2022-04-04 21:30 | NUR ---
DISCUSSED PATIENT'S LACK OF OUTPUT WITH MD. IVF ORDERS; SEE EMAR.
--- NOTE | 2022-04-05 | NUR ---
PATIENT REPOSITIONING HERSELF IN THE BED FREQUENTLY. ON AND OFF BIPAP SEVERAL TIMES. 2L NC AT THIS TIME. LUNG SOUNDS ARE COARSE, PATIENT HAS OCCATIONALY HACKING COUGH. REPORTS FEELING COLD, TEMP SLIGHTLY ELEVATED. WARM BLANKET PROVIDED. PATIENT APPEARS COMFORTABLE.
--- NOTE | 2022-04-05 03:00 | NUR ---
PATIENT WOKE TO VOICE. DENIES NEED TO VOID. TOLERATING 2L NC. VERY DROWSY. ALLOWED PATIENT TO REST. VS STABLE.
--- NOTE | 2022-04-05 05:00 | NUR ---
PATIENT WOKE FOR LAB DRAW AND IS MUCH MORE ALERT. PATIENT HAS SOME MEMORY OF CALLING FOR EMS YESTERDAY AND TALKING WITH DR. DE LA TORRE AND THE RT. PATIENT IS IMPULSIVE AND HAS DISORGANIZED THINKING, BUT ATTEMPTS TO FOLLOW INSTRUCTIONS AND IS FRIENDLY. PATIENT UP TO THE BSC TO VOID. 250 MLS CONCENTRATED URINE. PATIENT GOWN AND LINENS CHANGED DUE TO BEING DAMP FROM DIAPHORESIS. PATIENT TEMP WNL. PATIENT REPORTS SHE REGULARLY SWEATS AT NIGHT. PATIENT IS VERY TALKATIVE AND BECOME SOB WITH MINIMAL ACTIVITY. RT CALLED FOR NEB TREATMENT AND PATIENT WENT BACK ON BIPAP 40% Fi02. LUNG SOUNDS ARE COARSE. PATIENT ENCOURAGED TO REST.
--- NOTE | 2022-04-05 07:10 | NUR ---
PATIENT CONTINUES TO HAVE INCREASED WOB. DISCUSSED WITH MD. PATIENT TO RECEIVED 1MG ATIVAN.
--- NOTE | 2022-04-05 07:34 | EKG ---
[facility] [address] [place], [place] [address] Signed Sinus tachycardia Biatrial enlargement Rightward axis Anteroseptal infarct , age undetermined Abnormal ECG No previous ECGs available Confirmed by ANSHU DE LA TORRE MD ([id number]) on 04/05/2022 7:34:18 AM Electronically Signed By: ANSHU DE LA TORRE MD 04/05/22 0734 PATIENT NAME: VON SÁNCHEZ PARIS Electrocardiogram DATE OF : 58 PHYSICIAN: ANSHU DE LA TORRE MD REPORT #: [id number] REPORT IS CONFIDENTIAL AND NOT TO BE RELEASED WITHOUT AUTHORIZATION
--- NOTE | 2022-04-05 07:58 | NUR ---
ASSESSMENT COMPLETED BY TENANT RELATIONS COORDINATOR AND RN. PT IS RESTING IN BED COMFORTABLY. PT CAN BE AROUSED BUT IS EASY TO FALL BACK ASLEEP. PT IS ON NC 2L. PT IS BREATHING COMFORTABLY. PTS BREATH SOUNDS ARE CLEAR TO DIMINISHED. PTS BOWEL TONES ARE ACTIVE. PT STATES THAT HER BREATHING IS FEELING BETTER THAN YESTERDAY. PT IS SPITTING UP THICK YELLOW SPUTUM. PT HAS NO EDEMA IN LOWER EXTERMEITIES. CALL LIGHT IS WITHIN REACH. WILL CONTINUE TO MONITOR.
--- NOTE | 2022-04-05 08:32 | NUR ---
PATIENT RESTING IN BED UPON INITIAL ASSESSMENT, AND DOES NOT APPEAR IN ANY ACUTE RESP DISTRESS. PT ON 2 L NC AND SP02 RANGING 86-92%. PT WORE BIPAP FOR A MAJORITY OF THE NIGHT PER MID WIFE RN. PATIENT AWAKENS TO VOICE, INTERACTIVE, BUT STILL IS DROWSY AND FALLS BACK ASLEEP WITHIN A FEW MINUTES. PT IS HAVING A PRODUCTIVE SPUTUM OF THICK YELLOW AND COUGHING INTO A NAPKIN. PLAN OF CARE DISCUSSED. PT NO LONGER ANXIOUS OR IN NEED OF THE 1 TIME ATIVAN AT THIS TIME. IVF CONTINUE AT 100 ML/HR.
--- NOTE | 2022-04-05 10:08 | NUR ---
PT IS SITTING UP IN BED EATING BREAKFAST AT THE TIME. MORNING MEDICATIONS HAVE BEEN PASSED. PT WAS ABLE TO SWALLOW WITH OUT DIFFICULTY. PT IS ALERT AT THIS TIME AND WAS ABLE TO HOLD CONVERSATION. CALL LIGHT IS WITHIN REACH. WILL CONTINUE TO MONITOR.
--- NOTE | 2022-04-05 10:30 | NUR ---
PT ON THE PHONE WITH DAUGHTER. DAUGHTER RECIEVED AN UPDATE ON PTS CONDITION AND PLAN OF CARE. PT IS NOW LAYING DOWN IN BED AND IS RESTING COMFORTABLY. PT HAS SOME PAIN IN HER STOMACH AND HANDS, RATES IT A 6 OUT OF 10. PT STATES THAT SHE CAN TOLERATE 8/10 PAIN. CALL LIGHT IS WITHIN REACH. WILL CONTINUE TO MONITOR.
--- NOTE | 2022-04-05 11:43 | NUR ---
MED REC COMPLETE
--- NOTE | 2022-04-05 12:30 | NUR ---
PATIENT RESTLESS IN THE BED AND STATES, "I NEED OXYGEN ON ME." REASSURED PATIENT THAT SHE DID HAVE HER NASAL CANNULA ON AT 2L, AND HER SP02 WAS >95%, BUT HER WORK OF BREATHING HAD INCREASED FROM LAST TIME THIS RN IN ROOM. BIPAP PLACED ON PATIENT WITH SETTINGS OF 12/6 AND 30%. PT TOLERATING AT THIS TIME. MORE WHEEZING AUSCULTATED WHEN PATIENT WAS WORKING HARDER TO BREATH. CONTINUE TO MONITOR.
--- NOTE | 2022-04-05 13:52 | NUR ---
RN IN ROOM TO CLEAR LUNCH TRAY - PT RESTING IN BED WITH HOB ELEVATED, EYES CLOSED, SPO2 94% WITH NC IN PLACE. PT DENIES FURTHER NEEDS, CALL LIGHT AT SIDE.
--- NOTE | 2022-04-05 15:11 | NUR ---
PT EASILY AROUSED FOR MEDICATION PASS. PT RAISED SELF UP IN BED AND WAS EASILY ABLE TO TAKE ORAL MEDICATIONS WITH WATER. PT THEN TOLERATED IV MEDICATION PASS IN RIGHT FOREARM. PT RECLINED SELF BACK INTO BED AND IS COMFORTABLY RESTING ON HER RIGHT SIDE. WILL CONTINUE TO [facility].
--- NOTE | 2022-04-05 16:08 | NUR ---
PT CALLED FOR A NURSE TO COME AND FILL HER WATER. WATER WAS FILLED. PT IS SITTING UP IN BED SHOWING THIS SN AND RN HOW SHE IS USING HER INCENTIVE SPIROMETER. PT HAS BEEN USING THIS MULITIPLE TIMES THROUGH OUT THE DAY. 1600 ASSESSMENT WAS COMPLETED AT THIS TIME. PATIENT IS NOW SITTING UP IN BED WATCHING TV. CALL LIGHT IS WITHIN REACH. WILL CONTINUE TO MONITOR.
--- NOTE | 2022-04-05 17:23 | NUR ---
PT UP TO BEDSIDE COMMODE TO URINATE. PT WAS ABLE TO GET SELF OUT OF BED WITH LITTLE HELP. PT WAS ABLE WIPE SELF AND MOVE SELF TO COMODE WITH LITTLE ASSIST FROM SN. PT VOIDED 450ML OF URINE. URINE WAS DARK CONCENTRATED YELLOW. PT IS NOW SITTING UP IN BED EATING DINNER. CALL LIGHT IS WITHIN REACH. WILL CONTINUE TO MONITOR.
--- NOTE | 2022-04-05 21:00 | NUR ---
PATIENT CALLED FOR ASSIT UP TO THE BATHROOM. PATIENT TLERATED WELL, APPEARS SLIGHTLY SOB WITH ACTIVITY. TOLERATES 2L NC. HR UP TO 110 WITH ACTIVITY. VOIDED AND RETURNED TO BED. REPORTS HEADACHE. PRN TYLENOL AND VISTARIL PROVIDED. LUNG SOUNDS ARE CLEAR/DIM THROUGHOUT. PATIENT RECENTLY RECEIVED NEB TREATMENT. NO OTHER NEEDS AT THIS TIME.
--- NOTE | 2022-04-06 | NUR ---
PATIENT CONTINUES TO SLEEP SOUNDLY. APPEARS COMFORTABLE. WAKES EASILY, DENIES NEEDS. VS STABLE.
--- NOTE | 2022-04-06 05:00 | NUR ---
PATIENT DENIED NEED TO VOID. TOLERATING 2L NC. VS STABLE.
--- NOTE | 2022-04-06 06:15 | NUR ---
MEDS PROVIDED PER ORDER. PATIENT WOKE EASILY. DENIED NEED TO VOID, STATED "SOON". ENCOURAGED PATIENT TO CALL FOR NEEDS. IVF PER ORDER, SITE WNL.
--- NOTE | 2022-04-06 09:06 | NUR ---
MD IN PTS ROOM TO DISCUSS PLAN OF CARE. PLAN OF CARE IS TO MOVE PT TO FLOOR FOR PHYSICAL THERAPY. PT AGREES TO PLAN. PT CONTINUES TO WORK ON INCENTIVE SPIROMETER. MD ASSESSMENT COMPLETED AT THIS TIME. PT IS ABLE TO HOLD CONVERASTION WITH MD. WILL CONTINUE TO MONITOR.
--- NOTE | 2022-04-06 09:34 | NUR ---
PTS NIECE IS IN ROOM WITH PATIENT. PT IS ABLE TO HOLD CONVERSATION WITH VISITOR. WILL CONTINUE TO MONITOR.
--- NOTE | 2022-04-06 10:30 | NUR ---
IN PTS ROOM DUE TO ZITHROMYCIN IV FINISHED. STARTED PT BACK ON 5% DEXTROSE IN LR AT 75ML/HR. PT IS AWAKE AT THIS TIME IN BED READING HANDOUT ON SMOKING CEASATION. PT HAS NO QUESTIONS AT THIS TIME ABOUT QUITING. CALL LIGHT IS WITHIN REACH. WILL CONTINUE TO MONITOR.
--- NOTE | 2022-04-06 11:31 | NUR ---
PATIENT UP TO BSC FOR VOID. AND BACK TO BED, TOLERATED WELL.FRESH ICE WATER PROVIDED. CALL LGIHT AND PERSONAL ITEMS IN EASY REACH
--- NOTE | 2022-04-06 11:37 | NUR ---
IN PTS ROOM TO PROVIDE LUNCH. PT HAD A NAPKIN WITH YELLOW THICK SPUTUM. CALL LIGHT IS WITHIN REACH. WILL CONTINUE TO MONITOR.
--- NOTE | 2022-04-06 11:48 | NUR ---
IN PTS ROOM WHILE PT IS EATING LUNCH. PT RECIEVED A NEW BAG OF 5% DEXTROSE IN LR. 1200 ASSESSMENT COMPLETED AT THIS TIME. PT IS AWAKE AT THIS TIME AND COMMUNICATIVE.
--- NOTE | 2022-04-06 13:19 | NUR ---
RECEIVED REPORT FROM CCU ON TRANSFER OF PATIENT TO MED SURG ROOM 112.
--- NOTE | 2022-04-06 13:28 | NUR ---
INTO PATIENT ROOM TO COMPLETE ASSESSMENT. PATIENT LAYING IN BED RESTING WITH O2 IN PLACE. PATIENT STATES SHE LIVES IN A SMALL ONE BEDROOM HOME WITH HER 3 CATS. PATIENT HAS A DAUGHTER DINAH THAT LIVES IN [facility] [place] WHO ASSIST WITH HER TRASPORTATION AND DOES HER SHOPPING FOR HER. HER DAUGHTER TEREZA LIVE IN [place] AND IS ALSO AVAILABLE TO ASSIST AT DISCHARGE. PATIENT ALSO STATES SHE HAS A FRIEND WHO HELPS PREPARE MEALS FOR HER SHE CAN NOT STAND FOR LONG PERIODS OF TIME. PATIENT STATES SHE ALSO HAS DIFFICULTY GETTING DOWN HER STAIRS. PATIENT DOES HAVE A WALER AT HOME SO SHE IS ABLE TO USE THE MICROWAVE. PATIENT DOES RECV SSI AND FOOD STAMPS. SHE FEELS THAT SHE IS DOING WELL LIVING ON HER HOME AT THIS TIME. PATIENT DOES USE [employer] FOR DME. PATIENT IS ESTABLISHED WITH DR. MARTINEZ. PATIENT REQUEST RX FOR NICOTINE PATCHES AT DISCHARGE. DEMOGRAPHIC INFORMATION VERIFIED. PATIENT HAS NO FURTHER QUESTIONS OR CONCERNS AT THIS TIME.
--- NOTE | 2022-04-06 14:00 | NUR ---
PATIENT OVER IN MED SURG ALL SETTLED IN. PT CURRENTLY ON 2L OXYGEN, WITH TELE ON AND IV FLUIDS RUNNING AT 75ML AN HOUR. PT UP TO BEDSIDE COMMODE. PT VERY TALKATIVE. PT HAS PADDING ON TAILBONE FOR SORENESS. PT HAS CALL LIGHT WITHIN REACH, NO OTHER CONCERNS OR QUESTIONS. PT ADVISED TO USE IS TO HELP HER LUNGS.
--- NOTE | 2022-04-06 14:24 | NUR ---
HAD JUST A MOMENT TO VISIT WITH PT-CCU STAFF GETTING PT READY TO TRANSFER TO M/S. PT PLEASANT, THANKED ME FOR VISIT AND REQUESTED PRAYER. LEFT G.POST AND WILL CONNECT WITH PT AGAIN
--- NOTE | 2022-04-06 15:00 | NUR ---
PT HAND OFF GIVEN TO LUIS CALVILLO. PT TRANSFERED TO TELE 2. PT TRANSFERED TO MED/SURG ROOM 112 AT 1300. PT DID NOT REPORT ANY CONCERNS AND STATED SHE WAS THANKFUL FOR HER CARE.
--- NOTE | 2022-04-06 15:01 | NUR ---
PATIENT RESTING IN BED WATCHING TV. PT JUST GIVEN HER GABAPENTIN MEDICATION. PROVIDED PATIENT WITH FRESH WATER AND A SPRITE TO DRINK. PT DENIES ANY OTHER CARES OR NEEDS.
--- NOTE | 2022-04-06 16:18 | NUR ---
CALLED RT TO ADVISE THAT PATIENT WAS SCHEDULED FOR NEBULIZER AT 1600. RT ADVISED THEY WILL BE HERE SOON TO GIVE IT THEY ARE RUNNING LATE.
--- NOTE | 2022-04-06 19:33 | NUR ---
REPORT RECEIVED FROM LUIS CALVILLO. pt RESTING IN BED, LIGHTS OFF IN ROOM. NO DISTRESS NOTED.
--- NOTE | 2022-04-06 20:15 | NUR ---
pt RESTING IN BED AFTER NEB TREATMENT. LABORED BREATHING WHILE TALKING, RR 24. ASSESSMENT COMPLETE. PRN PAIN AND ANXIETY MEDICATION ADMINISTERED. pt COMPLAINS OF 6/10 BACK PAIN, REPORTS CHRONIC. ALLEVYN IN PLACE. ADDITIONAL PILLOW PROVIDED FOR COMFORT. IV SL WNL. CALL LIGHT IN REACH.
--- NOTE | 2022-04-06 22:26 | NUR ---
PATIENT CALLED TO USE THE BEDSIDE COMMODE. 1SBA. PATIENT IS BACK IN BED. DENIES FURTHER NEEDS AT THIS TIME. CALL LIGHT WITHIN REACH.
--- NOTE | 2022-04-06 23:09 | NUR ---
CHECKED ON pt. RESTING IN BED WITH EYES CLOSED ON RIGHT SIDE. BREATHING UNLABORED, RR 16. 2L OXYGEN BY NC IN PLACE.
--- NOTE | 2022-04-07 00:53 | NUR ---
CHECKED ON pt. pt RESTING IN BED ON BACK. EYES CLOSED. BREATHING UNLABORED. LIGHTS OFF IN ROOM.
--- NOTE | 2022-04-07 02:51 | NUR ---
CHECKED ON pt. RESTING IN BED WITH EYES CLOSED. HOB ELEVATED. BREATHING UNLABORED. NO DISTRESS NOTED.
--- NOTE | 2022-04-07 06:00 | NUR ---
pt SITTING UP BED AWAKE, COFFEE PROVIDED. VSS. ASSESSMENT COMPLETE. pt DEMONSTRATES IS USE X 2, 750 ML BEST EFFORT. LUNG SOUNDS DIMINISHED IN BASES, EXPIRATORY WHEEZES AUSCULTATED UPPER LOBES BILATERALLY. CALL LIGHT AND PERSONAL SUPPLIES IN REACH. pt DENIES TOILETING OR ADDITIONAL NEEDS.
--- NOTE | 2022-04-07 07:29 | NUR ---
REPORT RECEIVED FROM STERE[employer] EQUIPMENT SALESPERSON NURSE AT [phone].
--- NOTE | 2022-04-07 08:05 | NUR ---
PATIENT SITTING UP IN BED EATING BREAKFAST, NC ON AT 2L. PT ASKED TO HAVE HER FOAM PADDING REMOVED FROM HER TAILBONE THAT WAS PLACED BY CCU. PT ADVISED WE WILL WATCH THE AREA AND IF IT BECOMES SORE AGAIN WE CAN PLACE ANOTHER PAD. CALL LIGHT WITHIN REACH, DENIES ANY OTHER QUESTIONS OR CONCERNS.
--- NOTE | 2022-04-07 11:24 | NUR ---
THIS PASTE WORKER ALONG W/PATIENT APPOINTMENT COORDINATOR RIKY, ASSISTED PT W/SHOWER. PT WAS ABLE TO DO MOST CARES. LINEN CHANGED, HAIR BRUSHED BY NS. PT IN ROOM TO TAKE THE PT FOR A WALK. NO OTHER NEEDS AT THIS TIME.
--- NOTE | 2022-04-07 12:06 | NUR ---
PATIENT UP AND WALKED TWO LABS AROUND MED SURG FLOOR ON 2L OF OXYGEN. PT TOLERATED WELL. O2 WAS AT 92% ONCE PATIENT GOT BACK TO ROOM AND SITTING ON BEDSIDE.
--- NOTE | 2022-04-07 12:21 | NUR ---
CONNECTED WITH PT SHE AMBULATED IN HALLWAY WITH Kalee ALONZO. GAVE ENCOURAGEMENT, PT ACKKNOWLEDGED AND THANKED ME. WILL FOLLOW
--- NOTE | 2022-04-07 13:11 | NUR ---
PATIENT RESTING COMFORTABLY IN BED. SHE JUST FINISHED LUNCH. PT HAS NC ON AT 2L.
--- NOTE | 2022-04-07 14:19 | NUR ---
VISITED PATIENT. PATIENT PLANS TO GO HOME TO HER HOUSE AND HAS 2 DAUGHTERS THAT LIVE CLOSE AND CAN HELP NEEDED. PATIENT HAS HOME O2 AND HAS THAT SET UP TO USE WHEN DISCHARGED.PATIENT HAS 3 CATS AT HOME. PATIENT HAS A CANE AND WALKER AND DOES NOT WANT ANY OTHER DME AT THIS TIME. DAUGHTERS HELP WITH SHOPPING FOR FOOD AND PATIENT IS ABLE TO GET HER MEDICATIONS.
--- NOTE | 2022-04-07 15:05 | NUR ---
PATIENT SITTING UP AT BEDSIDE WITH TECHNICIANS AND TRADES WORKERS BRAIDING HER HAIR. PATIENT WOULD LIKE TO GET UP AND GO FOR ANOTHER WALK WHEN DONE TO BUILD HER STRENGTH BEFORE POSSIBLE DISCHARGE TOMORROW. PT DENIES ANY OTHER CARES AT THIS TIME.
--- NOTE | 2022-04-07 16:27 | NUR ---
RT BROUGHT TO ATTENTION THAT PATIENT IS REQUESTING SOMETHING TO HELP HER CRAVING OF SMOKING. PT STATES SHE ONLY SMOKES ABOUT 4 CIGS A MONTH AND IS TRYING TO CONTINUE TO STOP BUT HAVING CRAVINGS CURRENTLY. PT DOES SMOKE A CIG WITHIN THE FIRST 30 MINUTES OF WAKING UP IN THE MORNING IF SHE DOES CHOSE TO HAVE ONE. PT CURRENTLY HAS A NICOTINE PATCH THAT WAS PLACED THIS MORNING.
--- NOTE | 2022-04-07 16:47 | NUR ---
PATIENT IS RESTLESS IN BED, RESTLESS LEGS. NICOTINE LOZENGE GIVEN TO PATIENT. PT ADVISED SHE CAN HAVE ANOTHER ONE IN AN HOUR. ASKED PATIENT IF GETTING UP AND WALKING THE HALLWAY WOULD HELP BUT PATIENT ADVISED THIS NURSE THAT SHE IS FEELING PRETTY TIRED AND WOULD RATHER NOT. WILL CONTINUE TO MONITOR PATIENT.
--- NOTE | 2022-04-07 17:38 | NUR ---
PATIENT UP TO THE RESTROOM WITH 1 PERSON SBA. PT ADVISED THIS NURSE HER TAILBONE IS STARTING TO HURT AGAIN. [employer] SACRUM PADDING PLACED. TAILBONE IS BLANCHABLE. NON TENDER TO TOUCH. NO OPEN SORES.
--- NOTE | 2022-04-07 19:42 | NUR ---
REPORT RECEIVED FROM LUIS CALVILLO. pt RESTING IN BED AWAKE. REQUESTING NIGHT TIME MEDICATIONS. DISCUSSED PLAN OF CARE. BREATHING UNLABORED. 2L OXYGEN BY NC IN PLACE. CALL LIGHT IN REACH. pt STATES SHE IS REALLY HAPPY WITH HER CARE.
--- NOTE | 2022-04-07 20:30 | NUR ---
pt RESTING IN BED AWAKE, BREATHING TREATMENT COMPLETE. ASSESSMENT COMPLETE. PRN ANXIETY MEDICATIONS ADMINISTERED. PRN TYLENOL ADMINISTERED FOR 6-08/17 BACK PAIN. ASSISTED pt TO REPOSITION SLIGHTLY. ALLEVYN IN PLACE FOR PADDING ON BACKSIDE. 2L OXYGEN BY NC IN PLACE. CALL LIGHT IN REACH. pt COMPLAINS OF NEED TO HAVE BM, NIO BOWEL MEDICATIONS ORDERED.
--- NOTE | 2022-04-07 20:41 | NUR ---
NIO BOWEL MEDICATIONS ADMINISTERED. pt RESTING IN BED AWAKE, WATCHING TV. DENIES ADDITIONAL NEEDS. CALL LIGHT IN REACH.
--- NOTE | 2022-04-07 23:23 | NUR ---
CHECKED ON pt. RESTING IN BED WITH EYES CLOSED, LEGS SHIFTING. BREATHING IS UNLABORED. 2L OXYGEN BY NC IN PLACE.
--- NOTE | 2022-04-07 23:45 | NUR ---
PATIENT CALLED TO USE THE BATHROOM. PATIENT STATED "DONT TURN THE LIGHTS ON. IT HURTS MY EYES". PATIENT VOIDED UNMEASURED DUE TO NO HAT ON. PATIENT IS BACK IN BED NOW. ICE CREAM PROVIDED PER PATIENT'S REQUEST. NO OTHER NEEDS AT THIS TIME.
--- NOTE | 2022-04-08 01:24 | NUR ---
CHECKED ON pt. pt RESTING IN BED WITH EYES CLOSED, LYING ON BACK, BREATHING EQUAL AND UNLABORED.
--- NOTE | 2022-04-08 01:47 | NUR ---
CALL LIGHT ANSWERED. pt STATES "THE CRAVING IS REALLY BAD" FOR CIGARETTES. PRN LOSANGE ADMINISTERED. PRN ANXIETY MEDICATION ADMINISTERED. ASSESSMENT COMPLETE. PO SNACK PROVIDED (CRACKERS). NO ADDITIONAL REQUESTS. CALL LIGHT IN REACH.
--- NOTE | 2022-04-08 04:09 | NUR ---
CALL LIGHT ANSWERED. SBA TO RESTROOM FOR VOID. BACK TO BED, SPO2 WNL ON RA AFTER AMBULATION. RESTING IN BED. VSS. HOT CHOCOLATE PROVIDED. CALL LIGHT IN REACH. NO ADDITIONAL REQUESTS.
--- NOTE | 2022-04-08 07:05 | NUR ---
REPORT FROM JERILYN SMITH, PT EYES CLOSED RESP RATE EVEN, CALL LIGHT IN REACH. STUDENT CEASAR KATZ ORIENTED TO RN AND REPORT. WILL CONTINUE TO FOLLOW.
--- NOTE | 2022-04-08 07:20 | NUR ---
pt refused to get up in chair. call light within reach no further tasks at this time
--- NOTE | 2022-04-08 09:59 | NUR ---
PT WAS SITTING UP IN BED, SAID SHE WAS MAKING ARRANGEMENTS FOR RIDE HOME WITH HER DAUGHTER. PT SEEMED SOMEWHAT DISTRACTED, GAVE BLESSING AND WILL FOLLOW NEEDED
--- NOTE | 2022-04-08 10:20 | NUR ---
rn in room with dr dove and pt to discuss plan of care. pt requires o2 and will go home on it rn to assist with tank to go home - pt understand she will need to send the portable tank back to be returned to hospital. naima paul land use planner was also in to visit while this rn was here. new orders of meds given and assessment done. iv abx fusing via pump dr arndt.
[2022-04-08] MEDS ORDERED: STIMULANT LAXA1 EACH PO (10:34)
[2022-04-08] MEDS ORDERED: NICOTINE PATCH1 EACH TD (10:34)
[2022-04-08] MEDS ORDERED: LACTULOSE10 GM/15 M PO (10:37)
[2022-04-08] MEDS ORDERED: PREDNISONE20 MG PO (10:38)
--- NOTE | 2022-04-08 10:42 | NUR ---
PT REPORTS LG 3 LOG BM THIS AM AND IS REFUSING ENEMA THAT IS ORDERED BEFORE DC TO HOME.
--- NOTE | 2022-04-08 13:49 | NUR ---
PT SITTING ON BED, USING PHONE MAKING DC ARRANGEMENTS. PT SEEMS VERY DISTRACTED, GAVE BLESSING AND WILL FOLLOW
== END 2022-04-08 11:30 | disposition home or self-care (01) | DRG 191 ==
LOC: ED 14:14 → CCU 17:44 → MS 17:44
PROVIDERS: ADMIT Internal Medicine; ATTEND Internal Medicine
PROC: 5A09357 Assistance with Respiratory Ventilation, Less than 24 Consecutive Hours, Continuous Positive Airway Pressure (ICD-10-PCS; principal; 2022-04-04)
DX: J43.9 Emphysema, unspecified (principal); J96.11 Chronic respiratory failure with hypoxia; Z20.822 Contact with and (suspected) exposure to COVID-19; K59.00 Constipation, unspecified; F17.210 Nicotine dependence, cigarettes, uncomplicated; G89.4 Chronic pain syndrome; M06.9 Rheumatoid arthritis, unspecified; G40.909 Epilepsy, unspecified, not intractable, without status epilepticus; Z86.19 Personal history of other infectious and parasitic diseases; Z90.49 Acquired absence of other specified parts of digestive tract; Z98.51 Tubal ligation status; Z98.890 Other specified postprocedural states; Z88.8 Allergy status to other drugs, medicaments and biological substances; Z79.899 Other long term (current) drug therapy
CPT/HCPCS: 36415; 71045; 80048; 80053; 82140; 82803; 83735; 84484; 85025; 85060; 93005; 93010; 94640; 94644; 94660; 94760; 97162; 99406; A9270; C9803; J0456; J0696; J1650; J2920; J2930; J7060; J7121; Q0177; U0003

== ENCOUNTER 2022-08-25 17:27 | Observation (INO) | payer MEDICARE, OTHER ==
[~2022-08-25] VITALS: Ht 162.6 cm; Wt 48.5 kg
--- OUTSIDE RECORDS SUMMARY | ~2022-08-25 | XMS | Continuity of Care Document ---
Demographics + + + | Address | [facility] [address] | | | [place] [address] | + + + | Preferred Language | Unknown | + + + | Marital Status | Legally | + + + | Voodoo Affiliation | Unknown | + + + | Race | White | + + + | Ethnic Group | Not or | + + + Author + + + | Author | [facility] | + + + | Organization | [facility] | + + + | Address | [address] | | | [place] [address] | + + + | Phone | | + + + Care Team Providers + + + + | Care Door Installer Name | Role | Phone | + + + + Unavailable | Unavailable | + + + + Unavailable | Unavailable | + + + + Unavailable | Unavailable | + + + + Unavailable | Unavailable | + + + + Unavailable | Unavailable | + + + + Unavailable | Unavailable | + + + + Unavailable | Unavailable | + + + + Allergies and Intolerances + + + + + + | date | description | facility | reaction | severity | + + + + + + | (no date) | Mild | [facility] | (no reaction) | (no severity) [facility] | | + + + + + + | (no date) | Phenytoin | [facility] | (no reaction) | (no severity) [facility] | | | + + + + + + | (no date) | Phenytoin | [facility] | (no reaction) | (no severity) [facility] | | | + + + + + + | (no date) | Phenytoin | [facility] | (no reaction) | (no severity) [facility] | | | + + + + + + | (no date) | phenytoin | [facility] | (no reaction) | (no severity) | + + + + + + Encounters No information. Functional Status No information. Immunizations No information. Medications + + + + | date | description | facility | + + + + | 2021-11-12 00:00 | ALBUTEROL SULFATE | [facility] | + + + + | 2022-01-14 00:00 | ALBUTEROL SULFATE | [facility] | + + + + | 2021-11-12 00:00 | DOXYCYCLINE HYCLATE | [facility] | + + + + | 2015-07-19 00:00 | IBUPROFEN | [facility] | + + + + | 2015-07-19 00:00 | IBUPROFEN | [facility] | + + + + | 2015-07-19 00:00 | IBUPROFEN | [facility] | + + + + | 2015-07-19 00:00 | IBUPROFEN | [facility] | + + + + | 2015-07-19 00:00 | IBUPROFEN | [facility] | + + + + | 2022-04-08 00:00 | NICOTINE | [facility] | + + + + | 2022-01-14 00:00 | OSELTAMIVIR PHOSPHATE | [facility] | + + + + | 2022-01-14 00:00 | OSELTAMIVIR PHOSPHATE | [facility] | + + + + | 2022-01-14 00:00 | OSELTAMIVIR PHOSPHATE | [facility] | + + + + | 2022-01-14 00:00 | OSELTAMIVIR PHOSPHATE | [facility] | + + + + | 2015-07-19 00:00 | CLINDAMYCIN HCL | [facility] | + + + + | 2015-07-19 00:00 | CLINDAMYCIN HCL | [facility] | + + + + | 2015-07-19 00:00 | CLINDAMYCIN HCL | [facility] | + + + + | 2015-07-19 00:00 | CLINDAMYCIN HCL | [facility] | + + + + | 2015-07-19 00:00 | CLINDAMYCIN HCL | [facility] | + + + + | 2021-11-12 00:00 | AMOXICILLIN | [facility] | + + + + | 2022-01-14 00:00 | AMOXICILLIN | [facility] | + + + + | 2022-01-21 00:00 | AMOXICILLIN | [facility] | + + + + | 2022-04-08 00:00 | AMOXICILLIN | [facility] | + + + + | 2022-08-08 00:00 | AMOXICILLIN | [facility] | + + + + | 2021-11-12 00:00 | GABAPENTIN | [facility] | + + + + | 2022-01-14 00:00 | GABAPENTIN | [facility] | + + + + | 2022-01-21 00:00 | GABAPENTIN | [facility] | + + + + | 2022-04-08 00:00 | GABAPENTIN | [facility] | + + + + | 2022-08-08 00:00 | GABAPENTIN | [facility] | + + + + | 2021-11-12 00:00 | NABUMETONE | [facility] | + + + + | 2022-01-14 00:00 | NABUMETONE | [facility] | + + + + | 2022-01-21 00:00 | NABUMETONE | [facility] | + + + + | 2022-04-08 00:00 | NABUMETONE | [facility] | + + + + | 2022-08-08 00:00 | NABUMETONE | [facility] | + + + + | 2021-11-12 00:00 | predniSONE | [facility] | + + + + | 2022-01-14 00:00 | predniSONE | [facility] | + + + + | 2022-01-21 00:00 | predniSONE | [facility] | + + + + | 2022-04-08 00:00 | predniSONE | [facility] | + + + + | 2022-08-08 00:00 | predniSONE | [facility] | + + + + | 2021-11-12 00:00 | ACETAMINOPHEN | [facility] | + + + + | 2022-01-14 00:00 | ACETAMINOPHEN | [facility] | + + + + | 2022-01-21 00:00 | ACETAMINOPHEN | [facility] | + + + + | 2022-04-08 00:00 | ACETAMINOPHEN | [facility] | + + + + | 2022-08-08 00:00 | ACETAMINOPHEN | [facility] | + + + + | 2022-04-08 00:00 | LACTULOSE | [facility] | + + + + | 2021-07-14 00:00 | TIOTROPIUM BROMIDE | [facility] | + + + + | 2021-07-14 00:00 | TIOTROPIUM BROMIDE | [facility] | + + + + | 2021-07-14 00:00 | TIOTROPIUM BROMIDE | [facility] | + + + + | 2021-07-14 00:00 | TIOTROPIUM BROMIDE | [facility] | + + + + | 2022-08-08 00:00 | TIOTROPIUM BROMIDE | [facility] | + + + + | 2021-11-12 00:00 | DULOXETINE HCL | [facility] | + + + + | 2022-01-14 00:00 | DULOXETINE HCL | [facility] | + + + + | 2022-01-21 00:00 | DULOXETINE HCL | [facility] | + + + + | 2022-04-08 00:00 | DULOXETINE HCL | [facility] | + + + + | 2022-08-08 00:00 | DULOXETINE HCL | [facility] | + + + + | 2021-11-12 00:00 | DULOXETINE HCL | [facility] | + + + + | 2022-01-14 00:00 | DULOXETINE HCL | [facility] | + + + + | 2022-01-21 00:00 | DULOXETINE HCL | [facility] | + + + + | 2022-04-08 00:00 | DULOXETINE HCL | [facility] | + + + + | 2022-08-08 00:00 | DULOXETINE HCL | [facility] | + + + + | 2021-11-12 00:00 | ALBUTEROL SULFATE | [facility] | + + + + | 2022-01-14 00:00 | ALBUTEROL SULFATE | [facility] | + + + + | 2022-01-21 00:00 | ALBUTEROL SULFATE | [facility] | + + + + | 2022-04-08 00:00 | ALBUTEROL SULFATE | [facility] | + + + + | 2022-08-08 00:00 | ALBUTEROL SULFATE | [facility] | + + + + | 2021-07-14 00:00 | FLUTICASONE/SALMETEROL | [facility] | + + + + | 2021-07-14 00:00 | FLUTICASONE/SALMETEROL | [facility] | + + + + | 2021-07-14 00:00 | FLUTICASONE/SALMETEROL | [facility] | + + + + | 2021-07-14 00:00 | FLUTICASONE/SALMETEROL | [facility] | + + + + | 2021-07-14 00:00 | FLUTICASONE/SALMETEROL | [facility] | + + + + | 2022-01-14 00:00 | hydrOXYzine HCL | [facility] | + + + + | 2022-01-21 00:00 | hydrOXYzine HCL | [facility] | + + + + | 2022-04-08 00:00 | hydrOXYzine HCL | [facility] | + + + + | 2022-08-08 00:00 | hydrOXYzine HCL | [facility] | + + + + | 2022-04-08 00:00 | SENNOSIDES/DOCUSATE SODIUM | [facility] | | | | | + + + + Problems + + + + | date | description | facility | + + + + | 2014-05-01 00:00 | Flank pain | [facility] | + + + + | 2014-05-01 00:00 | Flank pain | [facility] | + + + + | 2014-05-01 00:00 | Flank pain | [facility] | + + + + | 2014-05-01 00:00 | Flank pain | [facility] | + + + + | 2014-05-01 00:00 | Flank pain | [facility] | + + + + | 2015-07-19 00:00 | Toothache | [facility] | + + + + | 2015-07-19 00:00 | Toothache | [facility] | + + + + | 2015-07-19 00:00 | Toothache | [facility] | + + + + | 2015-07-19 00:00 | Toothache | [facility] | + + + + | 2015-07-19 00:00 | Toothache | [facility] | + + + + | 2016-03-25 00:00 | Encounter for medical | [facility] | | | screening examination | | + + + + | 2016-03-25 00:00 | Encounter for medical | [facility] | | | screening examination | | + + + + | 2016-03-25 00:00 | Encounter for medical | [facility] | | | screening examination | | + + + + | 2016-03-25 00:00 | Encounter for medical | [facility] | | | screening examination | | + + + + | 2016-03-25 00:00 | Encounter for medical | [facility] | | | screening examination | | + + + + | 2020-12-06 00:00 | Acute exacerbation of | [facility] | | | chronic obstructive | | | | pulmonary disease | | + + + + | 2020-12-06 00:00 | Acute exacerbation of | [facility] | | | chronic obstructive | | | | pulmonary disease | | + + + + | 2020-12-06 00:00 | Acute exacerbation of | [facility] | | | chronic obstructive | | | | pulmonary disease | | + + + + | 2020-12-06 00:00 | Acute exacerbation of | [facility] | | | chronic obstructive | | | | pulmonary disease | | + + + + | 2020-12-06 00:00 | Acute exacerbation of | [facility] | | | chronic obstructive | | | | pulmonary disease | | + + + + | 2020-12-06 19:52 | NICOTINE DEPENDENCE, | [facility] | | | UNSPECIFIED, UNCOMPLICATED | | + + + + | 2020-12-06 19:52 | EPILEPSY, UNSP, NOT | [facility] | | | INTRACTABLE, WITHOUT STATUS | | | | EP | | + + + + | 2020-12-06 19:52 | CHRONIC OBSTRUCTIVE | [facility] | | | PULMONARY DISEASE W (ACUTE) | | | | EX | | + + + + | 2020-12-06 19:52 | SHORTNESS OF BREATH | [facility] | + + + + | 2020-12-06 19:52 | OTHER SENIOR PROGRAM MANAGER (CURRENT) | [facility] | | | DRUG THERAPY | | + + + + | 2020-12-06 19:52 | ALLERGY STATUS TO OTH | [facility] | | | DRUG/MEDS/BIOL SUBST STATUS | | | | | | + + + + | 2021-04-11 00:00 | Ruptured cerebral aneurysm | [facility] | | | | | + + + + | 2021-04-11 00:00 | Ruptured cerebral aneurysm | [facility] | | | | | + + + + | 2021-04-11 00:00 | Ruptured cerebral aneurysm | [facility] | | | | | + + + + | 2021-04-11 00:00 | Ruptured cerebral aneurysm | [facility] | | | | | + + + + | 2021-04-11 00:00 | Ruptured cerebral aneurysm | [facility] | | | | | + + + + | 2021-04-11 16:27 | NICOTINE DEPENDENCE, | [facility] | | | UNSPECIFIED, UNCOMPLICATED | | + + + + | 2021-04-11 16:27 | MIGRAINE, UNSP, NOT | [facility] | | | INTRACTABLE, WITHOUT STATUS | | | | [place] | | + + + + | 2021-04-11 16:27 | NONTRAUMATIC SUBARACHNOID | [facility] | | | HEMORRHAGE FROM UNSP INT | | + + + + | 2021-04-11 16:27 | CHRONIC OBSTRUCTIVE | [facility] | | | PULMONARY DISEASE, | | | | UNSPECIFIED | | + + + + | 2021-04-11 16:27 | RHEUMATOID ARTHRITIS, | [facility] | | | UNSPECIFIED | | + + + + | 2021-04-11 16:27 | ALTERED MENTAL STATUS, | [facility] | | | UNSPECIFIED | | + + + + | 2021-04-11 16:27 | SENIOR PROGRAM MANAGER (CURRENT) USE OF | [facility] | | | INHALED STEROIDS | | + + + + | 2021-04-11 16:27 | OTHER MCFP (CURRENT) | [facility] | | | DRUG THERAPY | | + + + + | 2021-04-11 16:27 | ALLERGY STATUS TO OTH | [facility] | | | DRUG/MEDS/BIOL SUBST STATUS | | | | | | + + + + | 2021-07-13 00:00 | Polysubstance abuse | [facility] | + + + + | 2021-07-13 00:00 | Polysubstance abuse | [facility] | + + + + | 2021-07-13 00:00 | Polysubstance abuse | [facility] | + + + + | 2021-07-13 00:00 | Polysubstance abuse | [facility] | + + + + | 2021-07-13 00:00 | Polysubstance abuse | [facility] | + + + + | 2021-07-13 00:00 | Altered mental status | [facility] | + + + + | 2021-07-13 00:00 | Altered mental status | [facility] | + + + + | 2021-07-13 00:00 | Altered mental status | [facility] | + + + + | 2021-07-13 00:00 | Altered mental status | [facility] | + + + + | 2021-07-13 00:00 | Altered mental status | [facility] | + + + + | 2021-11-12 12:54 | NICOTINE DEPENDENCE, | [facility] | | | UNSPECIFIED, UNCOMPLICATED | | + + + + | 2021-11-12 12:54 | ANXIETY DISORDER, | [facility] | | | UNSPECIFIED | | + + + + | 2021-11-12 12:54 | EPILEPSY, UNSP, NOT | [facility] | | | INTRACTABLE, WITHOUT STATUS | | | | EP | | + + + + | 2021-11-12 12:54 | CHRONIC OBSTRUCTIVE | [facility] | | | PULMONARY DISEASE W (ACUTE) | | | | EX | | + + + + | 2021-11-12 12:54 | SHORTNESS OF BREATH | [facility] | + + + + | 2021-11-12 12:54 | COVID-19 | [facility] | + + + + | 2021-11-12 12:54 | OTHER SENIOR PROGRAM MANAGER (CURRENT) | [facility] | | | DRUG THERAPY | | + + + + | 2021-11-12 12:54 | ALLERGY STATUS TO OTH | [facility] | | | DRUG/MEDS/BIOL SUBST STATUS | | | | | | + + + + | 2022-01-14 00:00 | Influenza due to influenza | [facility] | | | virus, type A, human | | + + + + | 2022-01-14 00:00 | Influenza due to influenza | [facility] | | | virus, type A, human | | + + + + | 2022-01-14 00:00 | Influenza due to influenza | [facility] | | | virus, type A, human | | + + + + | 2022-01-14 00:00 | Influenza due to influenza | [facility] | | | virus, type A, human | | + + + + | 2022-01-14 00:00 | Chronic obstructive | [facility] | | | pulmonary disease with | | | | acute exacerbation | | + + + + | 2022-01-14 00:00 | Chronic obstructive | [facility] | | | pulmonary disease with | | | | acute exacerbation | | + + + + | 2022-01-14 00:00 | Chronic obstructive | [facility] | | | pulmonary disease with | | | | acute exacerbation | | + + + + | 2022-01-14 00:00 | Chronic obstructive | [facility] | | | pulmonary disease with | | | | acute exacerbation | | + + + + | 2022-01-14 07:52 | NICOTINE DEPENDENCE, | [facility] | | | UNSPECIFIED, UNCOMPLICATED | | + + + + | 2022-01-14 07:52 | EPILEPSY, UNSP, NOT | [facility] | | | INTRACTABLE, WITHOUT STATUS | | | | EP | | + + + + | 2022-01-14 07:52 | FLU DUE TO OTH IDENT | [facility] | | | INFLUENZA VIRUS W OTH RESP | | | | [place] | | + + + + | 2022-01-14 07:52 | CHRONIC OBSTRUCTIVE | [facility] | | | PULMONARY DISEASE W (ACUTE) | | | | EX | | + + + + | 2022-01-14 07:52 | SHORTNESS OF BREATH | [facility] | + + + + | 2022-01-14 07:52 | OTHER MCFP (CURRENT) | [facility] | | | DRUG THERAPY | | + + + + | 2022-01-14 07:52 | ALLERGY STATUS TO OTH | [facility] | | | DRUG/MEDS/BIOL SUBST STATUS | | | | | | + + + + | 2022-01-16 00:00 | Chronic obstructive | [facility] | | | pulmonary disease | | + + + + | 2022-01-16 00:00 | Chronic obstructive | [facility] | | | pulmonary disease | | + + + + | 2022-01-16 00:00 | Chronic obstructive | [facility] | | | pulmonary disease | | + + + + | 2022-01-16 00:00 | Acute respiratory failure | [facility] | + + + + | 2022-01-16 00:00 | Acute respiratory failure | [facility] | + + + + | 2022-01-16 00:00 | Acute respiratory failure | [facility] | + + + + | 2022-01-16 16:36 | UNSPECIFIED VIRAL | [facility] | | | HEPATITIS C WITHOUT HEPATIC | | | | COMA | | + + + + | 2022-01-16 16:36 | NICOTINE DEPENDENCE, | [facility] | | | CIGARETTES, UNCOMPLICATED | | + + + + | 2022-01-16 16:36 | EPILEPSY, UNSP, NOT | [facility] | | | INTRACTABLE, WITHOUT STATUS | | | | EP | | + + + + | 2022-01-16 16:36 | OTHER CHRONIC PAIN | [facility] | + + + + | 2022-01-16 16:36 | FLU DUE TO OTH IDENT | [facility] | | | INFLUENZA VIRUS W OTH RESP | | | | [place] | | + + + + | 2022-01-16 16:36 | EMPHYSEMA, UNSPECIFIED | [facility] | + + + + | 2022-01-16 16:36 | ACUTE RESPIRATORY FAILURE | [facility] | | | WITH HYPOXIA | | + + + + | 2022-01-16 16:36 | ACUTE RESPIRATORY FAILURE | [facility] | | | WITH HYPERCAPNIA | | + + + + | 2022-01-16 16:36 | RHEUMATOID ARTHRITIS, | [facility] | | | UNSPECIFIED | | + + + + | 2022-01-16 16:36 | DORSALGIA, UNSPECIFIED | [facility] | + + + + | 2022-01-16 16:36 | OTHER MCFP (CURRENT) | [facility] | | | DRUG THERAPY | | + + + + | 2022-01-16 16:36 | ALLERGY STATUS TO OTH | [facility] | | | DRUG/MEDS/BIOL SUBST STATUS | | | | | | + + + + | 2022-01-16 16:36 | ACQUIRED ABSENCE OF OTHER | [facility] | | | SPECIFIED PARTS OF DIGES | | + + + + | 2022-01-16 16:36 | OTHER SPECIFIED | [facility] | | | POSTPROCEDURAL STATES | | + + + + | 2022-04-04 00:00 | Acute bronchopneumonia | [facility] | + + + + | 2022-04-04 00:00 | Acute bronchopneumonia | [facility] | + + + + | 2022-04-04 00:00 | Respiratory failure with | [facility] | | | hypercapnia | | + + + + | 2022-04-04 00:00 | Respiratory failure with | [facility] | | | hypercapnia | | + + + + | 2022-04-04 17:44 | NICOTINE DEPENDENCE, | [facility] | | | CIGARETTES, UNCOMPLICATED | | + + + + | 2022-04-04 17:44 | EPILEPSY, UNSP, NOT | [facility] | | | INTRACTABLE, WITHOUT STATUS | | | | EP | | + + + + | 2022-04-04 17:44 | CHRONIC PAIN SYNDROME | [facility] | + + + + | 2022-04-04 17:44 | EMPHYSEMA, UNSPECIFIED | [facility] | + + + + | 2022-04-04 17:44 | CHRONIC OBSTRUCTIVE | [facility] | | | PULMONARY DISEASE W (ACUTE) | | | | EXACERBATION | | + + + + | 2022-04-04 17:44 | CHRONIC RESPIRATORY | [facility] | | | FAILURE WITH HYPOXIA | | + + + + | 2022-04-04 17:44 | CONSTIPATION, UNSPECIFIED | [facility] | + + + + | 2022-04-04 17:44 | RHEUMATOID ARTHRITIS, | [facility] | | | UNSPECIFIED | | + + + + | 2022-04-04 17:44 | OTHER SENIOR PROGRAM MANAGER (CURRENT) | [facility] | | | DRUG THERAPY | | + + + + | 2022-04-04 17:44 | PERSONAL HISTORY OF OTHER | [facility] | | | INFECTIOUS AND PARASITIC | | + + + + | 2022-04-04 17:44 | ALLERGY STATUS TO OTH | [facility] | | | DRUG/MEDS/BIOL SUBST STATUS | | | | | | + + + + | 2022-04-04 17:44 | ACQUIRED ABSENCE OF OTHER | [facility] | | | SPECIFIED PARTS OF DIGES | | + + + + | 2022-04-04 17:44 | TUBAL LIGATION STATUS | [facility] | + + + + | 2022-04-04 17:44 | OTHER SPECIFIED | [facility] | | | POSTPROCEDURAL STATES | | + + + + | 2022-08-08 18:29 | NICOTINE DEPENDENCE, | [facility] | | | UNSPECIFIED, UNCOMPLICATED | | + + + + | 2022-08-08 18:29 | CHRONIC OBSTRUCTIVE | [facility] | | | PULMONARY DISEASE W (ACUTE) | | | | EX | | + + + + | 2022-08-08 18:29 | SHORTNESS OF BREATH | [facility] | + + + + | 2022-08-08 18:29 | OTHER SENIOR PROGRAM MANAGER (CURRENT) | [facility] | | | DRUG THERAPY | | + + + + | 2022-08-08 18:29 | ALLERGY STATUS TO OTH | [facility] | | | DRUG/MEDS/BIOL SUBST STATUS | | | | | | + + + + | 2022-08-08 18:29 | DEPENDENCE ON SUPPLEMENTAL | [facility] | | | OXYGEN | | + + + + Procedures No information. Results/Labs +--------+--------+ +---------+--------+---------+ | test | date | facility | value | unit | notes | +--------+--------+ +---------+--------+---------+ + + | Result panel 1 | + + + + + +--------+ + + | | 2021-11-12 | [facility] | 16.0 | (missing) | (missing) | | [facility]unavailable [facility] | | | + + + +--------+ + + + + | Result panel 2 | + + + + + +--------+ + + | | 2021-11-12 | [facility] | 5.04 | (missing) | (missing) | | (unavailable | [facility]08 [facility] | | | | + + + +--------+ + + + + | Result panel 3 | + + + + + +--------+ + + | | 2021-11-12 | [facility] | 14.7 | (missing) | (missing) | | (unavailable | [facility]:08 [facility] | | | | + + + +--------+ + + + + | Result panel 4 | + + + + + +--------+ + + | | 2021-11-12 | [facility] | 45.8 | (missing) | (missing) | | (unavailable | [facility]:08 [facility] | | | | + + + +--------+ + + + + | Result panel 5 | + + + + + +--------+ + + | | 2021-11-12 | [facility] | 91.0 | (missing) | (missing) | | (unavailable | [facility]08 [facility] | | | | + + + +--------+ + + + + | Result panel 6 | + + + + + +--------+ + + | | 2021-11-12 | [facility] | 29.2 | (missing) | (missing) | | (unavailable | [facility]:08 [facility] | | | | + + + +--------+ + + + + | Result panel 7 | + + + + + +--------+ + + | | 2021-11-12 | [facility] | 32.1 | (missing) | (missing) | | (unavailable | [facility]08 [facility] | | | | + + + +--------+ + + + + | Result panel 8 | + + + + + +--------+ + + | | 2021-11-12 | [facility] | 13.6 | (missing) | (missing) | | (unavailable | [facility]:08 [facility] | | | | + + + +--------+ + + + + | Result panel 9 | + + + + + +-------+ + + | | 2021-11-12 | [facility] | 243 | (missing) | (missing) | | (unavailable | 13:08 [facility] | | | | + + + +-------+ + + + + | Result panel 10 | + + + + + +--------+ + + | | 2021-11-12 | [facility] | 88.7 | (missing) | (missing) | | (unavailable | [facility]:08 [facility] | | | | + + + +--------+ + + + + | Result panel 11 | + + + + + +-------+ + + | | 2021-11-12 | [facility] | 6.1 | (missing) | (missing) | | (unavailable | [facility]:08 [facility] | | | | + + + +-------+ + + + + | Result panel 12 | + + + + + +-------+ + + | | 2021-11-12 | [facility] | 4.4 | (missing) | (missing) | | (unavailable | [facility]:08 [facility] | | | | + + + +-------+ + + + + | Result panel 13 | + + + + + +-------+ + + | | 2021-11-12 | [facility] | 0.2 | (missing) | (missing) | | (unavailable | [facility]:08 [facility] | | | | + + + +-------+ + + + + | Result panel 14 | + + + + + +-------+ + + | | 2021-11-12 | [facility] | 0.6 | (missing) | (missing) | | (unavailable | [facility]:08 [facility] | | | | + + + +-------+ + + + + | Result panel 15 | + + + + + +-------+---------+ + | | 2021-11-12 | [facility] | 150 | mg/dL | (missing) | | (unavailable | 13:08 [facility] | | | | + + + +-------+---------+ + + + | Result panel 16 | + + + + + +------+---------+ + | | 2021-11-12 | [facility] | 15 | mg/dL | (missing) | | (unavailable | 13:08 [facility] | | | | + + + +------+---------+ + + + | Result panel 17 | + + + + + +--------+---------+ + | | 2021-11-12 | [facility] | 0.80 | mg/dL | (missing) | | (unavailable | 13:08 [facility] | | | | + + + +--------+---------+ + + + | Result panel 18 | + + + + + +------+ + + | | 2021-11-12 | [facility] | 83 | (missing) | (missing) | | (unavailable | 13:08 [facility] | | | | + + + +------+ + + + + | Result panel 19 | + + + + + +---------+ + + | | 2021-11-12 | [facility] | 18.75 | (missing) | (missing) | | (unavailable | 13:08 [facility] | | | | + + + +---------+ + + + + | Result panel 20 | + + + + + +-------+ + + | | 2021-11-12 | [facility] | 138 | (missing) | (missing) | | (unavailable | 13:08 | [facility] | | | | + + + +-------+ + + + + | Result panel 21 | + + + + + +-------+ + + | | 2021-11-12 | [facility] | 4.0 | (missing) | (missing) | | (unavailable | [facility]:08 [facility] | | | + + + +-------+ + + + + | Result panel 22 | + + + + + +------+ + + | | 2021-11-12 | [facility] | 96 | (missing) | (missing) | | (unavailable | 13:08 [facility] | | | + + + +------+ + + + + | Result panel 23 | + + + + + +------+ + + | | 2021-11-12 | [facility] | 34 | (missing) | (missing) | | (unavailable | 13:08 [facility] | | | + + + +------+ + + + + | Result panel 24 | + + + + + +--------+ + + | | 2021-11-12 | [facility] | 12.0 | (missing) | (missing) | | (unavailable | 13:08 [facility] | | | + + + +--------+ + + + + | Result panel 25 | + + + + + +-------+---------+ + | | 2021-11-12 | [facility] | 9.2 | mg/dL | (missing) | | (unavailable | 13:08 [facility] | | | + + + +-------+---------+ + + + | Result panel 26 | + + + + + +-------+---------+ + | | 2021-11-12 | [facility] | 1.5 | mg/dL | (missing) | | (unavailable | 13:08 [facility] | | | + + + +-------+---------+ + + + | Result panel 27 | + + + + + +-------+ + + | | 2021-11-12 | [facility] | 8.4 | (missing) | (missing) | | (unavailable | 13:08 [facility] | | | + + + +-------+ + + + + | Result panel 28 | + + + + + +-------+ + + | | 2021-11-12 | [facility] | 3.6 | (missing) | (missing) | | (unavailable | 13:08 [facility] | | | + + + +-------+ + + + + | Result panel 29 | + + + + + +-------+ + + | | 2021-11-12 | [facility] | 4.8 | (missing) | (missing) | | (unavailable | 13:08 [facility] | | | + + + +-------+ + + + + | Result panel 30 | + + + + + +--------+ + + | | 2021-11-12 | [facility] | 0.75 | (missing) | (missing) | | (unavailable | 13:08 [facility] | | | + + + +--------+ + + + + | Result panel 31 | + + + + + +-------+ + + | | 2021-11-12 | [facility] | 0.8 | (missing) | (missing) | | (unavailable | 13:08 [facility] | | | + + + +-------+ + + + + | Result panel 32 | + + + + + +------+ + + | | 2021-11-12 | [facility] | 22 | (missing) | (missing) | | (unavailable | 13:08 [facility] | | | + + + +------+ + + + + | Result panel 33 | + + + + + +------+ + + | | 2021-11-12 | [facility] | 30 | (missing) | (missing) | | (unavailable | 13:08 [facility] | | | + + + +------+ + + + + | Result panel 34 | + + + + + +------+ + + | | 2021-11-12 | [facility] | 81 | (missing) | (missing) | | (unavailable | 13:08 [facility] | | | + + + +------+ + + + + | Result panel 35 | + + + + + +-------+ + + | | 2021-11-12 | [facility] | 7.9 | (missing) | (missing) | | (unavailable | 13:08 [facility] | | | + + + +-------+ + + + + | Result panel 36 | + + + + + + + + + | | 2021-11-12 | [facility] | POSITIVE | (missing) | (missing) | | (unavailable | 13:15 [facility] | | | + + + + + + + + + | Result panel 37 | + + + + + + + + + | | 2021-11-12 | [facility] | NEGATIVE | (missing) | (missing) | | (unavailable | 13:15 [facility] | | | + + + + + + + + + | Result panel 38 | + + + + + + + + + | | 2021-11-12 | [facility] | NEGATIVE | (missing) | (missing) | | (unavailable | 13:15 [facility] | | | + + + + + + + + + | Result panel 39 | + + + + + + + + + | | 2021-11-12 | [facility] | NEGATIVE | (missing) | (missing) | | (unavailable | 13:15 [facility] | | | + + + + + + + + + | Result panel 40 | + + + + + +-------+ + + | | 2021-11-12 | [facility] | 2.0 | (missing) | (missing) | | (unavailable | 13:35 [facility] | | | + + + +-------+ + + + + | Result panel 41 | + + + + + +--------+ + + | | 2021-11-12 | [facility] | 7.42 | (missing) | (missing) | | (unavailable | 13:55 [facility] | | | + + + +--------+ + + + + | Result panel 42 | + + + + + +--------+ + + | | 2021-11-12 | [facility] | 57.6 | (missing) | (missing) | | (unavailable | 13:55 [facility] | | | + + + +--------+ + + + + | Result panel 43 | + + + + + +------+ + + | | 2021-11-12 | [facility] | 67 | (missing) | (missing) | | (unavailable | 13:55 [facility] | | | + + + +------+ + + + + | Result panel 44 | + + + + + +--------+ + + | | 2021-11-12 | [facility] | 37.1 | (missing) | (missing) | | (unavailable | 13:55 [facility] | | | + + + +--------+ + + + + | Result panel 45 | + + + + + +------+ + + | | 2021-11-12 | [facility] | 13 | (missing) | (missing) | | (unavailable | 13:55 [facility] | | | + + + +------+ + + + + | Result panel 46 | + + + + + +------+ + + | | 2021-11-12 | [facility] | 93 | (missing) | (missing) | | (unavailable | 13:55 [facility] | | | + + + +------+ + + + + | Result panel 47 | + + + + + +------+ + + | | 2021-11-12 | [facility] | NS | (missing) | (missing) | | (unavailable | 13:55 [facility] | | | + + + +------+ + + + + | Result panel 48 | + + + + + +------+ + + | | 2021-11-12 | [facility] | 39 | (missing) | (missing) | | (unavailable | 13:55 [facility] | | | + + + +------+ + + + + | Result panel 49 | + + + + + + + + + | | 2021-11-12 | [facility] | YELLOW | (missing) | (missing) | | (unavailable | 14:07 [facility] | | | + + + + + + + + + | Result panel 50 | + + + + + +---------+ + + | | 2021-11-12 | [facility] | CLEAR | (missing) | (missing) | | (unavailable | 14:07 [facility] | | | | + + + +---------+ + + + + | Result panel 51 | + + + + + + + + + | | 2021-11-12 | [facility] | NEGATIVE | (missing) | (missing) | | (unavailable | 14:07 [facility] | | | | + + + + + + + + + | Result panel 52 | + + + + + + + + + | | 2021-11-12 | [facility] | POSITIVE | (missing) | (missing) | | (unavailable | 14:07 [facility] | | | + + + + + + + + + | Result panel 53 | + + + + + +--------+ + + | | 2021-11-12 | [facility] | >=80 | (missing) | (missing) | | (unavailable | 14:07 [facility] | | | + + + +--------+ + + + + | Result panel 54 | + + + + + +---------+ + + | | 2021-11-12 | [facility] | 1.020 | (missing) | (missing) | | (unavailable | 14:07 [facility] | | | + + + +---------+ + + + + | Result panel 55 | + + + + + + + + + | | 2021-11-12 | [facility] | TRACE-I | (missing) | (missing) | | (unavailable | 14:07 [facility] | | | + + + + + + + + + | Result panel 56 | + + + + + +-------+ + + | | 2021-11-12 | [facility] | 6.5 | (missing) | (missing) | | (unavailable | 14:07 [facility] | | | + + + +-------+ + + + + | Result panel 57 | + + + + + +------+ + + | | 2021-11-12 | [facility] | 30 | (missing) | (missing) | | (unavailable | 14:07 [facility] | | | + + + +------+ + + + + | Result panel 58 | + + + + + +-------+ + + | | 2021-11-12 | [facility] | 1.0 | (missing) | (missing) | | (unavailable | 14:07 [facility] | | | + + + +-------+ + + + + | Result panel 59 | + + + + + + + + + | | 2021-11-12 | [facility] | NEGATIVE | (missing) | (missing) | | (unavailable | 14:07 [facility] | | | + + + + + + + + + | Result panel 60 | + + + + + + + + + | | 2021-11-12 | [facility] | NEGATIVE | (missing) | (missing) | | (unavailable | 14:07 [facility] | | | + + + + + + + + + | Result panel 61 | + + + + + +-------+ + + | | 2021-11-12 | [facility] | 2-3 | (missing) | (missing) | | (unavailable | 14:07 [facility] | | | | + + + +-------+ + + + + | Result panel 62 | + + + + + +-------+ + + | | 2021-11-12 | [facility] | 0-1 | (missing) | (missing) | | (unavailable | 14:07 [facility] | | | + + + +-------+ + + + + | Result panel 63 | + + + + + + + + + | | 2021-11-12 | [facility] | SQUAMOUS 1+ | (missing) | (missing) | | (unavailable | 14:07 [facility] | | | | + + + + + + + + + | Result panel 64 | + + + + + + + + + | | 2021-11-12 | [facility] | NONE SEEN | (missing) | (missing) | | (unavailable | 14:07 [facility] | | | | + + + + + + + + + | Result panel 65 | + + + + + + + + + | | 2021-11-12 | [facility] | NONE SEEN | (missing) | (missing) | | (unavailable | 14:07 [facility] | | | | + + + + + + + + + | Result panel 66 | + + + + + + + + + | | 2021-11-12 | [facility] | NONE SEEN | (missing) | (missing) | | (unavailable | 14:07 [facility] | | | | + + + + + + + + + | Result panel 67 | + + + + + +------+ + + | | 2021-11-12 | [facility] | No | (missing) | (missing) | | (unavailable | 14:07 [facility] | | | | + + + +------+ + + + + | Result panel 68 | + + + + + + + + + | | 2021-11-12 | [facility] | CLEAN CATCH | (missing) | (missing) | | (unavailable | 14:07 [facility] | | | | + + + + + + + + + | Result panel 69 | + + + + + + + + + | | 2021-11-12 | [facility] | POSITIVE | (missing) | (missing) | | (unavailable | 14:07 [facility] | | | | + + + + + + + + + | Result panel 70 | + + + + + + + + + | | 2021-11-12 | [facility] | NEGATIVE | (missing) | (missing) | | (unavailable | 14:07 [facility] | | | | + + + + + + + + + | Result panel 71 | + + + + + + + + + | | 2021-11-12 | [facility] | NEGATIVE | (missing) | (missing) | | (unavailable | 14:07 [facility] | | | | + + + + + + + + + | Result panel 72 | + + + + + + + + + | | 2021-11-12 | [facility] | NEGATIVE | (missing) | (missing) | | (unavailable | 14:07 [facility] | | | | + + + + + + + + + | Result panel 73 | + + + + + + + + + | | 2021-11-12 | [facility] | NEGATIVE | (missing) | (missing) | | (unavailable | 14:07 [facility] | | | | + + + + + + + + + | Result panel 74 | + + + + + + + + + | | 2021-11-12 | [facility] | NEGATIVE | (missing) | (missing) | | (unavailable | 14:07 [facility] | | | | + + + + + + + + + | Result panel 75 | + + + + + + + + + | | 2021-11-12 | [facility] | NEGATIVE | (missing) | (missing) | | (unavailable | 14:07 [facility] | | | | + + + + + + + + + | Result panel 76 | + + + + + + + + + | | 2021-11-12 | [facility] | NEGATIVE | (missing) | (missing) | | (unavailable | 14:07 [facility] | | | | + + + + + + + + + | Result panel 77 | + + + + + + + + + | | 2021-11-12 | [facility] | NEGATIVE | (missing) | (missing) | | (unavailable | 14:07 [facility] | | | | + + + + + + + + + | Result panel 78 | + + + + + + + + + | | 2021-11-12 | [facility] | NEGATIVE | (missing) | (missing) | | (unavailable | 14:07 [facility] | | | | + + + + + + + + + | Result panel 79 | + + + + + + + + + | | 2021-11-12 | [facility] | NEGATIVE | (missing) | (missing) | | (unavailable | 14:07 [facility] | | | | + + + + + + + + + | Result panel 80 | + + + + + + + + + | | 2021-11-12 | [facility] | NEGATIVE | (missing) | (missing) | | (unavailable | 14:07 [facility] | | | | + + + + + + + + + | Result panel 81 | + + + + + + + + + | | 2021-11-12 | [facility] | NEGATIVE | (missing) | (missing) | | (unavailable | 14:07 [facility] | | | | + + + + + + + + + | Result panel 82 | + + + + + + + + + | | 2022-01-14 | [facility] | NEGATIVE | (missing) | (missing) | | (unavailable | 07:57:08 | [facility] | | | | + + + + + + + + + | Result panel 83 | + + + + + + + + + | | 2022-01-14 | [facility] | POSITIVE | (missing) | (missing) | | (unavailable | 07:57:08 [facility] | | | | + + + + + + + + + | Result panel 84 | + + + + + + + + + | | 2022-01-14 | [facility] | NEGATIVE | (missing) | (missing) | | (unavailable | 07:57:08 [facility] | | | | + + + + + + + + + | Result panel 85 | + + + + + + + + + | | 2022-01-14 | [facility] | NEGATIVE | (missing) | (missing) | | (unavailable | 07:57:08 [facility] | | | | + + + + + + + + + | Result panel 86 | + + + + + +-------+ + + | | 2022-01-14 | [facility] | 148 | (missing) | (missing) | | (unavailable | 08:17:08 [facility] | | | | + + + +-------+ + + + + | Result panel 87 | + + + + + +------+ + + | | 2022-01-14 | [facility] | 89 | (missing) | (missing) | | (unavailable | 08:17:08 [facility] | | | | + + + +------+ + + + + | Result panel 88 | + + + + + +-----+ + + | | 2022-01-14 | [facility] | 4 | (missing) | (missing) | | (unavailable | 08:17:08 [facility] | | | | + + + +-----+ + + + + | Result panel 89 | + + + + + +-----+ + + | | 2022-01-14 | [facility] | 2 | (missing) | (missing) | | (unavailable | 08:17:08 [facility] | | | | + + + +-----+ + + + + | Result panel 90 | + + + + + +-----+ + + | | 2022-01-14 | [facility] | 5 | (missing) | (missing) | | (unavailable | 08:17:08 [facility] | | | | + + + +-----+ + + + + | Result panel 91 | + + + + + +-------+---------+ + | | 2022-01-14 | [facility] | 106 | mg/dL | (missing) | | (unavailable | :08 | [facility] | | | | + + + +-------+---------+ + + + | Result panel 92 | + + + + + +------+---------+ + | | 2022-01-14 | [facility] | 13 | mg/dL | (missing) | | (unavailable | 08:17:08 [facility] | | | + + + +------+---------+ + + + | Result panel 93 | + + + + + +--------+---------+ + | | 2022-01-14 | [facility] | 0.66 | mg/dL | (missing) | | (unavailable | 08:17:08 [facility] | | | + + + +--------+---------+ + + + | Result panel 94 | + + + + + +------+ + + | | 2022-01-14 | [facility] | 99 | (missing) | (missing) | | (unavailable | 08:17:08 [facility] | | | | + + + +------+ + + + + | Result panel 95 | + + + + + +---------+ + + | | 2022-01-14 | [facility] | 19.69 | (missing) | (missing) | | (unavailable | 08:17:08 [facility] | | | | + + + +---------+ + + + + | Result panel 96 | + + + + + +-------+ + + | | 2022-01-14 | [facility] | 135 | (missing) | (missing) | | (unavailable | 08:17:08 [facility] | | | | + + + +-------+ + + + + | Result panel 97 | + + + + + +-------+ + + | | 2022-01-14 | [facility] | 3.7 | (missing) | (missing) | | (unavailable | 08:17:08 [facility] | | | | + + + +-------+ + + + + | Result panel 98 | + + + + + +------+ + + | | 2022-01-14 | [facility] | 96 | (missing) | (missing) | | (unavailable | 08:17:08 [facility] | | | | + + + +------+ + + + + | Result panel 99 | + + + + + +------+ + + | | 2022-01-14 | [facility] | 38 | (missing) | (missing) | | (unavailable | 08:17:08 [facility] | | | | + + + +------+ + + + + | Result panel 100 | + + + + + +-------+ + + | | 2022-01-14 | [facility] | 4.7 | (missing) | (missing) | | (unavailable | 08:17:08 [facility] | | | | + + + +-------+ + + + + | Result panel 101 | + + + + + +-------+---------+ + | | 2022-01-14 | [facility] | 9.3 | mg/dL | (missing) | | (unavailable | 08:17:08 [facility] | | | | + + + +-------+---------+ + + + | Result panel 102 | + + + + + +-------+ + + | | 2022-01-14 | [facility] | 7.3 | (missing) | (missing) | | (unavailable | 08:17:08 [facility] | | | | + + + +-------+ + + + + | Result panel 103 | + + + + + +-------+ + + | | 2022-01-14 | [facility] | 3.4 | (missing) | (missing) | | (unavailable | 08:17:08 [facility] | | | | + + + +-------+ + + + + | Result panel 104 | + + + + + +-------+ + + | | 2022-01-14 | [facility] | 3.9 | (missing) | (missing) | | (unavailable | 08:17:08 [facility] | | | | + + + +-------+ + + + + | Result panel 105 | + + + + + +--------+ + + | | 2022-01-14 | [facility] | 0.87 | (missing) | (missing) | | (unavailable | 08:17:08 [facility] | | | | + + + +--------+ + + + + | Result panel 106 | + + + + + +-------+ + + | | 2022-01-14 | [facility] | 0.5 | (missing) | (missing) | | (unavailable | 08:17:08 [facility] | | | | + + + +-------+ + + + + | Result panel 107 | + + + + + +------+ + + | | 2022-01-14 | [facility] | 21 | (missing) | (missing) | | (unavailable | 08::08 | [facility] | | | | + + + +------+ + + + + | Result panel 108 | + + + + + +------+ + + | | 2022-01-14 | [facility] | 19 | (missing) | (missing) | | (unavailable | 08:17:08 [facility] | | | | + + + +------+ + + + + | Result panel 109 | + + + + + +------+ + + | | 2022-01-14 | [facility] | 75 | (missing) | (missing) | | (unavailable | 08:17:08 [facility] | | | | + + + +------+ + + + + | Result panel 110 | + + + + + +------+ + + | | 2022-01-14 | [facility] | 89 | (missing) | (missing) | | (unavailable | 08:17:08 [facility] | | | | + + + +------+ + + + + | Result panel 111 | + + + + + +-----+ + + | | 2022-01-14 | [facility] | 4 | (missing) | (missing) | | (unavailable | 08:17:08 [facility] | | | | + + + +-----+ + + + + | Result panel 112 | + + + + + +-----+ + + | | 2022-01-14 | [facility] | 2 | (missing) | (missing) | | (unavailable | 08:17:08 [facility] | | | | + + + +-----+ + + + + | Result panel 113 | + + + + + +-----+ + + | | 2022-01-14 | [facility] | 5 | (missing) | (missing) | | (unavailable | 08:17:08 [facility] | | | | + + + +-----+ + + + + | Result panel 114 | + + + + + +--------+ + + | | 2022-01-14 | [facility] | 14.3 | (missing) | (missing) | | (unavailable | 08:17:08 [facility] | | | | + + + +--------+ + + + + | Result panel 115 | + + + + + +--------+ + + | | 2022-01-14 | [facility] | 4.25 | (missing) | (missing) | | (unavailable | 08:17:08 [facility] | | | | + + + +--------+ + + + + | Result panel 116 | + + + + + +--------+ + + | | 2022-01-14 | [facility] | 12.6 | (missing) | (missing) | | (unavailable | 08:17:08 [facility] | | | | + + + +--------+ + + + + | Result panel 117 | + + + + + +--------+ + + | | 2022-01-14 | [facility] | 39.1 | (missing) | (missing) | | (unavailable | 08:17:08 [facility] | | | | + + + +--------+ + + + + | Result panel 118 | + + + + + +--------+ + + | | 2022-01-14 | [facility] | 92.1 | (missing) | (missing) | | (unavailable | 08:17:08 [facility] | | | | + + + +--------+ + + + + | Result panel 119 | + + + + + +--------+ + + | | 2022-01-14 | [facility] | 29.6 | (missing) | (missing) | | (unavailable | 08:17:08 [facility] | | | | + + + +--------+ + + + + | Result panel 120 | + + + + + +--------+ + + | | 2022-01-14 | [facility] | 32.1 | (missing) | (missing) | | (unavailable | 08:17:08 [facility] | | | | + + + +--------+ + + + + | Result panel 121 | + + + + + +--------+ + + | | 2022-01-14 | [facility] | 14.1 | (missing) | (missing) | | (unavailable | 08:17:08 [facility] | | | | + + + +--------+ + + + + | Result panel 122 | + + + + + +---------+ + + | | 2022-01-14 | [facility] | 7.303 | (missing) | (missing) | | (unavailable | 11:00:08 [facility] | | | | + + + +---------+ + + + + | Result panel 123 | + + + + + +-------+---------+ + | | 2022-01-16 | [facility] | 1.7 | mg/dL | (missing) | | (unavailable | 10:51:08 [facility] | | | | + + + +-------+---------+ + + + | Result panel 124 | + + + + + +-------+ + + | | 2022-01-16 | [facility] | 7.6 | (missing) | (missing) | | (unavailable | 10:51:08 [facility] | | | | + + + +-------+ + + + + | Result panel 125 | + + + + + +-------+ + + | | 2022-01-16 | [facility] | 3.4 | (missing) | (missing) | | (unavailable | 10:51:08 [facility] | | | | + + + +-------+ + + + + | Result panel 126 | + + + + + +-------+ + + | | 2022-01-16 | [facility] | 4.2 | (missing) | (missing) | | (unavailable | 10:51:08 [facility] | | | | + + + +-------+ + + + + | Result panel 127 | + + + + + +--------+ + + | | 2022-01-16 | [facility] | 0.81 | (missing) | (missing) | | (unavailable | 10:51:08 [facility] | | | | + + + +--------+ + + + + | Result panel 128 | + + + + + +-------+ + + | | 2022-01-16 | [facility] | 0.3 | (missing) | (missing) | | (unavailable | 10:51:08 [facility] | | | | + + + +-------+ + + + + | Result panel 129 | + + + + + +------+ + + | | 2022-01-16 | [facility] | 61 | (missing) | (missing) | | (unavailable | 10:51:08 [facility] | | | | + + + +------+ + + + + | Result panel 130 | + + + + + +------+ + + | | 2022-01-16 | [facility] | 32 | (missing) | (missing) | | (unavailable | 10:51:08 [facility] | | | | + + + +------+ + + + + | Result panel 131 | + + + + + +------+ + + | | 2022-01-16 | [facility] | 81 | (missing) | (missing) | | (unavailable | 10:51:08 [facility] | | | | + + + +------+ + + + + | Result panel 132 | + + + + + +--------+ + + | | 2022-01-16 | [facility] | 11.7 | (missing) | (missing) | | (unavailable | 10:51:08 [facility] | | | | + + + +--------+ + + + + | Result panel 133 | + + + + + + + + + | | 2022-01-16 | [facility] | NEGATIVE | (missing) | (missing) | | (unavailable | 11:25:08 [facility] | | | | + + + + + + + + + | Result panel 134 | + + + + + + + + + | | 2022-01-16 | [facility] | POSITIVE | (missing) | (missing) | | (unavailable | 11:25:08 [facility] | | | | + + + + + + + + + | Result panel 135 | + + + + + + + + + | | 2022-01-16 | [facility] | NEGATIVE | (missing) | (missing) | | (unavailable | 11:25:08 [facility] | | | | + + + + + + + + + | Result panel 136 | + + + + + + + + + | | 2022-01-16 | [facility] | NEGATIVE | (missing) | (missing) | | (unavailable | 11:25:08 [facility] | | | | + + + + + + + + + | Result panel 137 | + + + + + +---------+ + + | | 2022-01-17 | [facility] | 7.335 | (missing) | (missing) | | (unavailable | 15:30:08 [facility] | | | | + + + +---------+ + + + + | Result panel 138 | + + + + + +--------+ + + | | 2022-01-19 | [facility] | 10.4 | (missing) | (missing) | | (unavailable | 05:17:08 [facility] | | | | + + + +--------+ + + + + | Result panel 139 | + + + + + +--------+ + + | | 2022-01-19 | [facility] | 4.13 | (missing) | (missing) | | (unavailable | 05:17:08 [facility] | | | | + + + +--------+ + + + + | Result panel 140 | + + + + + +--------+ + + | | 2022-01-19 | [facility] | 12.2 | (missing) | (missing) | | (unavailable | 05:17:08 [facility] | | | | + + + +--------+ + + + + | Result panel 141 | + + + + + +--------+ + + | | 2022-01-19 | [facility] | 38.7 | (missing) | (missing) | | (unavailable | 05:17:08 [facility] | | | | + + + +--------+ + + + + | Result panel 142 | + + + + + +--------+ + + | | 2022-01-19 | [facility] | 93.5 | (missing) | (missing) | | (unavailable | 05:17:08 [facility] | | | | + + + +--------+ + + + + | Result panel 143 | + + + + + +--------+ + + | | 2022-01-19 | [facility] | 29.6 | (missing) | (missing) | | (unavailable | 05:17:08 [facility] | | | | + + + +--------+ + + + + | Result panel 144 | + + + + + +--------+ + + | | 2022-01-19 | [facility] | 31.7 | (missing) | (missing) | | (unavailable | 05:17:08 [facility] | | | | + + + +--------+ + + + + | Result panel 145 | + + + + + +--------+ + + | | 2022-01-19 | [facility] | 14.2 | (missing) | (missing) | | (unavailable | 05:17:08 [facility] | | | | + + + +--------+ + + + + | Result panel 146 | + + + + + +-------+ + + | | 2022-01-19 | [facility] | 193 | (missing) | (missing) | | (unavailable | 05:17:08 | [facility] | | | | + + + +-------+ + + + + | Result panel 147 | + + + + + +--------+ + + | | 2022-01-19 | [facility] | 86.2 | (missing) | (missing) | | (unavailable | [facility]08 [facility] | | | + + + +--------+ + + + + | Result panel 148 | + + + + + +-------+ + + | | 2022-01-19 | [facility] | 4.0 | (missing) | (missing) | | (unavailable | [facility]17[facility]08 [facility] | | | + + + +-------+ + + + + | Result panel 149 | + + + + + +-------+ + + | | 2022-01-19 | [facility] | 9.3 | (missing) | (missing) | | (unavailable | 05[facility]17:08 [facility] | | | + + + +-------+ + + + + | Result panel 150 | + + + + + +-------+ + + | | 2022-01-19 | [facility] | 0.0 | (missing) | (missing) | | (unavailable | [facility]17[facility]08 [facility] | | | + + + +-------+ + + + + | Result panel 151 | + + + + + +-------+ + + | | 2022-01-19 | [facility] | 0.5 | (missing) | (missing) | | (unavailable | 05[facility]17:08 [facility] | | | + + + +-------+ + + + + | Result panel 152 | + + + + + +-------+---------+ + | | 2022-01-19 | [facility] | 132 | mg/dL | (missing) | | (unavailable | 05[facility]17:08 [facility] | | | + + + +-------+---------+ + + + | Result panel 153 | + + + + + +------+---------+ + | | 2022-01-19 | [facility] | 11 | mg/dL | (missing) | | (unavailable | 05[facility]17:08 [facility] | | | + + + +------+---------+ + + + | Result panel 154 | + + + + + +--------+---------+ + | | 2022-01-19 | [facility] | 0.55 | mg/dL | (missing) | | (unavailable | 05:17:08 [facility] | | | + + + +--------+---------+ + + + | Result panel 155 | + + + + + +-------+ + + | | 2022-01-19 | [facility] | 104 | (missing) | (missing) | | (unavailable | 05[facility]17:08 [facility] | | | + + + +-------+ + + + + | Result panel 156 | + + + + + +---------+ + + | | 2022-01-19 | [facility] | 20.00 | (missing) | (missing) | | (unavailable | [facility]17:08 [facility] | | | + + + +---------+ + + + + | Result panel 157 | + + + + + +-------+ + + | | 2022-01-19 | [facility] | 142 | (missing) | (missing) | | (unavailable | 05[facility]17:08 [facility] | | | + + + +-------+ + + + + | Result panel 158 | + + + + + +-------+ + + | | 2022-01-19 | [facility] | 4.4 | (missing) | (missing) | | (unavailable | 05[facility]17:08 [facility] | | | + + + +-------+ + + + + | Result panel 159 | + + + + + +------+ + + | | 2022-01-19 | [facility] | 98 | (missing) | (missing) | | (unavailable | 05:17:08 [facility] | | | + + + +------+ + + + + | Result panel 160 | + + + + + +------+ + + | | 2022-01-19 | [facility] | 43 | (missing) | (missing) | | (unavailable | 05:17:08 [facility] | | | + + + +------+ + + + + | Result panel 161 | + + + + + +-------+ + + | | 2022-01-19 | [facility] | 5.4 | (missing) | (missing) | | (unavailable | 05[facility]17:08 [facility] | | | + + + +-------+ + + + + | Result panel 162 | + + + + + +-------+---------+ + | | 2022-01-19 | [facility] | 9.3 | mg/dL | (missing) | | (unavailable | 05:17:08 [facility] | | | + + + +-------+---------+ + + + | Result panel 163 | + + + + + + + + + | | 2022-04-04 | [facility] | SEE COMMENT | (missing) | (missing) | | (unavailable | 14[facility]30:08 [facility] | | | + + + + + + + + + | Result panel 164 | + + + + + +---------+ + + | | 2022-04-04 | [facility] | 7.340 | (missing) | (missing) | | (unavailable | 14[facility]30:08 [facility] | | | + + + +---------+ + + + + | Result panel 165 | + + + + + +-------+ + + | | 2022-04-04 | [facility] | 8.3 | (missing) | (missing) | | (unavailable | 14[facility]30:08 [facility] | | | + + + +-------+ + + + + | Result panel 166 | + + + + + +-------+ + + | | 2022-04-04 | [facility] | 3.6 | (missing) | (missing) | | (unavailable | 14[facility]30:08 [facility] | | | + + + +-------+ + + + + | Result panel 167 | + + + + + +-------+ + + | | 2022-04-04 | [facility] | 4.7 | (missing) | (missing) | | (unavailable | 14[facility]30:08 [facility] | | | + + + +-------+ + + + + | Result panel 168 | + + + + + +--------+ + + | | 2022-04-04 | [facility] | 0.77 | (missing) | (missing) | | (unavailable | 14:30:08 [facility] | | | + + + +--------+ + + + + | Result panel 169 | + + + + + +-------+ + + | | 2022-04-04 | [facility] | 1.0 | (missing) | (missing) | | (unavailable | 14[facility]30:08 [facility] | | | + + + +-------+ + + + + | Result panel 170 | + + + + + +------+ + + | | 2022-04-04 | [facility] | 17 | (missing) | (missing) | | (unavailable | 14[facility]30:08 [facility] | | | + + + +------+ + + + + | Result panel 171 | + + + + + +------+ + + | | 2022-04-04 | [facility] | 13 | (missing) | (missing) | | (unavailable | 14[facility]30:08 [facility] | | | + + + +------+ + + + + | Result panel 172 | + + + + + +------+ + + | | 2022-04-04 | [facility] | 94 | (missing) | (missing) | | (unavailable | 14[facility]30:08 [facility] | | | + + + +------+ + + + + | Result panel 173 | + + + + + +-------+ + + | | 2022-04-04 | [facility] | 4.9 | (missing) | (missing) | | (unavailable | 14[facility]30:08 [facility] | | | + + + +-------+ + + + + | Result panel 174 | + + + + + + + + + | | 2022-04-04 | [facility] | NEGATIVE | (missing) | (missing) | | (unavailable | 14:45:08 [facility] | | | + + + + + + + + + | Result panel 175 | + + + + + + + + + | | 2022-04-04 | [facility] | POSITIVE | (missing) | (missing) | | (unavailable | 18[facility]37:08 [facility] | | | + + + + + + + + + | Result panel 176 | + + + + + + + + + | | 2022-04-04 | [facility] | POSITIVE | (missing) | (missing) | | (unavailable | 18[facility]37:08 [facility] | | | + + + + + + + + + | Result panel 177 | + + + + + + + + + | | 2022-04-04 | [facility] | NEGATIVE | (missing) | (missing) | | (unavailable | 18[facility]37:08 [facility] | | | + + + + + + + + + | Result panel 178 | + + + + + + + + + | | 2022-04-04 | [facility] | NEGATIVE | (missing) | (missing) | | (unavailable | [facility]37:08 [facility] | | | + + + + + + + + + | Result panel 179 | + + + + + + + + + | | 2022-04-04 | [facility] | NEGATIVE | (missing) | (missing) | | (unavailable | 18[facility]37:08 [facility] | | | + + + + + + + + + | Result panel 180 | + + + + + + + + + | | 2022-04-04 | [facility] | NEGATIVE | (missing) | (missing) | | (unavailable | 18[facility]37:08 [facility] | | | + + + + + + + + + | Result panel 181 | + + + + + + + + + | | 2022-04-04 | [facility] | NEGATIVE | (missing) | (missing) | | (unavailable | 18[facility]37:08 [facility] | | | + + + + + + + + + | Result panel 182 | + + + + + + + + + | | 2022-04-04 | [facility] | NEGATIVE | (missing) | (missing) | | (unavailable | 18[facility]37:08 [facility] | | | + + + + + + + + + | Result panel 183 | + + + + + + + + + | | 2022-04-04 | [facility] | NEGATIVE | (missing) | (missing) | | (unavailable | 18[facility]37:08 [facility] | | | + + + + + + + + + | Result panel 184 | + + + + + + + + + | | 2022-04-04 | [facility] | POSITIVE | (missing) | (missing) | | (unavailable | 18[facility]37:08 [facility] | | | + + + + + + + + + | Result panel 185 | + + + + + + + + + | | 2022-04-04 | [facility] | NEGATIVE | (missing) | (missing) | | (unavailable | 18[facility]37:08 [facility] | | | + + + + + + + + + | Result panel 186 | + + + + + + + + + | | 2022-04-04 | [facility] | NEGATIVE | (missing) | (missing) | | (unavailable | 18[facility]37:08 [facility] | | | + + + + + + + + + | Result panel 187 | + + + + + + + + + | | 2022-04-04 | [facility] | NEGATIVE | (missing) | (missing) | | (unavailable | 18[facility]37:08 [facility] | | | + + + + + + + + + | Result panel 188 | + + + + + +--------+ + + | | 2022-04-05 | [facility] | 94.8 | (missing) | (missing) | | (unavailable | 05:18:08 [facility] | | | + + + +--------+ + + + + | Result panel 189 | + + + + + +-------+ + + | | 2022-04-05 | [facility] | 1.6 | (missing) | (missing) | | (unavailable | 05:18:08 [facility] | | | + + + +-------+ + + + + | Result panel 190 | + + + + + +-------+ + + | | 2022-04-05 | [facility] | 2.7 | (missing) | (missing) | | (unavailable | 05:18:08 [facility] | | | + + + +-------+ + + + + | Result panel 191 | + + + + + +-------+ + + | | 2022-04-05 | [facility] | 0.1 | (missing) | (missing) | | (unavailable | 05:18:08 [facility] | | | + + + +-------+ + + + + | Result panel 192 | + + + + + +-------+ + + | | 2022-04-05 | [facility] | 0.8 | (missing) | (missing) | | (unavailable | 05:18:08 [facility] | | | + + + +-------+ + + + + | Result panel 193 | + + + + + +-------+---------+ + | | 2022-04-05 | [facility] | 1.8 | mg/dL | (missing) | | (unavailable | 05:18:08 [facility] | | | + + + +-------+---------+ + + + | Result panel 194 | + + + + + +--------+ + + | | 2022-04-05 | [facility] | 18.0 | (missing) | (missing) | | (unavailable | 05[facility]18:08 [facility] | | | + + + +--------+ + + + + | Result panel 195 | + + + + + +--------+ + + | | 2022-04-06 | [facility] | 24.5 | (missing) | (missing) | | (unavailable | 05[facility]14:08 [facility] | | | + + + +--------+ + + + + | Result panel 196 | + + + + + +--------+ + + | | 2022-04-06 | [facility] | 3.67 | (missing) | (missing) | | (unavailable | 05:14:08 [facility] | | | + + + +--------+ + + + + | Result panel 197 | + + + + + +--------+ + + | | 2022-04-06 | [facility] | 11.0 | (missing) | (missing) | | (unavailable | 05:14:08 [facility] | | | + + + +--------+ + + + + | Result panel 198 | + + + + + +--------+ + + | | 2022-04-06 | [facility] | 34.2 | (missing) | (missing) | | (unavailable | 05:14:08 [facility] | | | + + + +--------+ + + + + | Result panel 199 | + + + + + +--------+ + + | | 2022-04-06 | [facility] | 93.2 | (missing) | (missing) | | (unavailable | 05:14:08 [facility] | | | + + + +--------+ + + + + | Result panel 200 | + + + + + +--------+ + + | | 2022-04-06 | [facility] | 30.0 | (missing) | (missing) | | (unavailable | 05:14:08 [facility] | | | + + + +--------+ + + + + | Result panel 201 | + + + + + +--------+ + + | | 2022-04-06 | [facility] | 32.2 | (missing) | (missing) | | (unavailable | 05[facility]14:08 [facility] | | | + + + +--------+ + + + + | Result panel 202 | + + + + + +--------+ + + | | 2022-04-06 | [facility] | 13.7 | (missing) | (missing) | | (unavailable | 05[facility]14:08 [facility] | | | + + + +--------+ + + + + | Result panel 203 | + + + + + +-------+ + + | | 2022-04-06 | [facility] | 251 | (missing) | (missing) | | (unavailable | 05[facility]14:08 [facility] | | | + + + +-------+ + + + + | Result panel 204 | + + + + + +------+ + + | | 2022-04-06 | [facility] | 91 | (missing) | (missing) | | (unavailable | 05:14:08 [facility] | | | + + + +------+ + + + + | Result panel 205 | + + + + + +-----+ + + | | 2022-04-06 | [facility] | 3 | (missing) | (missing) | | (unavailable | 05:14:08 [facility] | | | + + + +-----+ + + + + | Result panel 206 | + + + + + +-----+ + + | | 2022-04-06 | [facility] | 3 | (missing) | (missing) | | (unavailable | 05:14:08 [facility] | | | + + + +-----+ + + + + | Result panel 207 | + + + + + +-----+ + + | | 2022-04-06 | [facility] | 3 | (missing) | (missing) | | (unavailable | 05:14:08 [facility] | | | + + + +-----+ + + + + | Result panel 208 | + + + + + +-------+---------+ + | | 2022-04-06 | [facility] | 162 | mg/dL | (missing) | | (unavailable | 05:14:08 [facility] | | | + + + +-------+---------+ + + + | Result panel 209 | + + + + + +------+---------+ + | | 2022-04-06 | [facility] | 21 | mg/dL | (missing) | | (unavailable | 05:14:08 [facility] | | | + + + +------+---------+ + + + | Result panel 210 | + + + + + +--------+---------+ + | | 2022-04-06 | [facility] | 0.61 | mg/dL | (missing) | | (unavailable | 05:14:08 [facility] | | | + + + +--------+---------+ + + + | Result panel 211 | + + + + + +-------+ + + | | 2022-04-06 | [facility] | 100 | (missing) | (missing) | | (unavailable | 05[facility]14:08 [facility] | | | + + + +-------+ + + + + | Result panel 212 | + + + + + +---------+ + + | | 2022-04-06 | [facility] | 34.42 | (missing) | (missing) | | (unavailable | 05:14:08 [facility] | | | + + + +---------+ + + + + | Result panel 213 | + + + + + +-------+ + + | | 2022-04-06 | [facility] | 141 | (missing) | (missing) | | (unavailable | 05[facility]14:08 [facility] | | | + + + +-------+ + + + + | Result panel 214 | + + + + + +-------+ + + | | 2022-04-06 | [facility] | 4.0 | (missing) | (missing) | | (unavailable | 05[facility]14:08 [facility] | | | + + + +-------+ + + + + | Result panel 215 | + + + + + +-------+ + + | | 2022-04-06 | [facility] | 102 | (missing) | (missing) | | (unavailable | 05[facility]14:08 [facility] | | | + + + +-------+ + + + + | Result panel 216 | + + + + + +------+ + + | | 2022-04-06 | [facility] | 34 | (missing) | (missing) | | (unavailable | 05[facility]14:08 [facility] | | | + + + +------+ + + + + | Result panel 217 | + + + + + +-------+ + + | | 2022-04-06 | [facility] | 9.0 | (missing) | (missing) | | (unavailable | 05[facility]14:08 [facility] | | | + + + +-------+ + + + + | Result panel 218 | + + + + + +-------+---------+ + | | 2022-04-06 | [facility] | 9.1 | mg/dL | (missing) | | (unavailable | 05:14:08 [facility] | | | + + + +-------+---------+ + + + | Result panel 219 | + + + + + +--------+ + + | | 2022-08-08 | [facility] | 11.5 | (missing) | (missing) | | (unavailable | 18:55:07 [facility] | | | + + + +--------+ + + + + | Result panel 220 | + + + + + +--------+ + + | | 2022-08-08 | [facility] | 81.1 | (missing) | (missing) | | (unavailable | 18[facility]55:07 [facility] | | | + + + +--------+ + + + + | Result panel 221 | + + + + + +-------+ + + | | 2022-08-08 | [facility] | 8.7 | (missing) | (missing) | | (unavailable | 18[facility]55:07 [facility] | | | + + + +-------+ + + + + | Result panel 222 | + + + + + +-------+ + + | | 2022-08-08 | [facility] | 9.2 | (missing) | (missing) | | (unavailable | 18[facility]55:07 [facility] | | | + + + +-------+ + + + + | Result panel 223 | + + + + + +-------+ + + | | 2022-08-08 | [facility] | 0.7 | (missing) | (missing) | | (unavailable | 18[facility]55:07 [facility] | | | + + + +-------+ + + + + | Result panel 224 | + + + + + +-------+ + + | | 2022-08-08 | [facility] | 0.3 | (missing) | (missing) | | (unavailable | 18[facility]55:07 [facility] | | | + + + +-------+ + + + + | Result panel 225 | + + + + + +-------+---------+ + | | 2022-08-08 | [facility] | 163 | mg/dL | (missing) | | (unavailable | 18[facility]55:07 [facility] | | | + + + +-------+---------+ + + + | Result panel 226 | + + + + + +------+---------+ + | | 2022-08-08 | [facility] | 14 | mg/dL | (missing) | | (unavailable | 18[facility]55:07 [facility] | | | + + + +------+---------+ + + + | Result panel 227 | + + + + + +--------+---------+ + | | 2022-08-08 | [facility] | 0.85 | mg/dL | (missing) | | (unavailable | 18:55:07 [facility] | | | + + + +--------+---------+ + + + | Result panel 228 | + + + + + +------+ + + | | 2022-08-08 | [facility] | 77 | (missing) | (missing) | | (unavailable | 18[facility]55:07 [facility] | | | + + + +------+ + + + + | Result panel 229 | + + + + + +---------+ + + | | 2022-08-08 | [facility] | 16.47 | (missing) | (missing) | | (unavailable | 18[facility]55:07 [facility] | | | + + + +---------+ + + + + | Result panel 230 | + + + + + +--------+ + + | | 2022-08-08 | [facility] | 4.31 | (missing) | (missing) | | (unavailable | 18[facility]55:07 [facility] | | | + + + +--------+ + + + + | Result panel 231 | + + + + + +-------+ + + | | 2022-08-08 | [facility] | 145 | (missing) | (missing) | | (unavailable | 18[facility]55:07 [facility] | | | + + + +-------+ + + + + | Result panel 232 | + + + + + +-------+ + + | | 2022-08-08 | [facility] | 3.5 | (missing) | (missing) | | (unavailable | 18[facility]55:07 [facility] | | | | + + + +-------+ + + + + | Result panel 233 | + + + + + +------+ + + | | 2022-08-08 | [facility] | 98 | (missing) | (missing) | | (unavailable | 18[facility]55:07 [facility] | | | | + + + +------+ + + + + | Result panel 234 | + + + + + +------+ + + | | 2022-08-08 | [facility] | 42 | (missing) | (missing) | | (unavailable | 18[facility]55:07 [facility] | | | | + + + +------+ + + + + | Result panel 235 | + + + + + +-------+ + + | | 2022-08-08 | [facility] | 8.5 | (missing) | (missing) | | (unavailable | 18[facility]55:07 [facility] | | | | + + + +-------+ + + + + | Result panel 236 | + + + + + +-------+---------+ + | | 2022-08-08 | [facility] | 9.8 | mg/dL | (missing) | | (unavailable | 18[facility]55:07 [facility] | | | | + + + +-------+---------+ + + + | Result panel 237 | + + + + + +-------+---------+ + | | 2022-08-08 | [facility] | 1.8 | mg/dL | (missing) | | (unavailable | 18[facility]55:07 [facility] | | | | + + + +-------+---------+ + + + | Result panel 238 | + + + + + +-------+ + + | | 2022-08-08 | [facility] | 8.4 | (missing) | (missing) | | (unavailable | 18[facility]55:07 [facility] | | | | + + + +-------+ + + + + | Result panel 239 | + + + + + +-------+ + + | | 2022-08-08 | [facility] | 3.2 | (missing) | (missing) | | (unavailable | [facility]55:07 [facility] | | | | + + + +-------+ + + + + | Result panel 240 | + + + + + +-------+ + + | | 2022-08-08 | [facility] | 5.2 | (missing) | (missing) | | (unavailable | [facility]55[facility]07 [facility] | | | | + + + +-------+ + + + + | Result panel 241 | + + + + + +--------+ + + | | 2022-08-08 | [facility] | 13.0 | (missing) | (missing) | | (unavailable | 18[facility]55:07 [facility] | | | | + + + +--------+ + + + + | Result panel 242 | + + + + + +--------+ + + | | 2022-08-08 | [facility] | 0.62 | (missing) | (missing) | | (unavailable | 18[facility]55:07 [facility] | | | | + + + +--------+ + + + + | Result panel 243 | + + + + + +-------+ + + | | 2022-08-08 | [facility] | 0.6 | (missing) | (missing) | | (unavailable | [facility]55:07 [facility] | | | | + + + +-------+ + + + + | Result panel 244 | + + + + + +------+ + + | | 2022-08-08 | [facility] | 19 | (missing) | (missing) | | (unavailable | [facility]55[facility]07 [facility] | | | | + + + +------+ + + + + | Result panel 245 | + + + + + +------+ + + | | 2022-08-08 | [facility] | 22 | (missing) | (missing) | | (unavailable | [facility]55:07 [facility] | | | + + + +------+ + + + + | Result panel 246 | + + + + + +-------+ + + | | 2022-08-08 | [facility] | 111 | (missing) | (missing) | | (unavailable | [facility]55:07 [facility] | | | + + + +-------+ + + + + | Result panel 247 | + + + + + +-------+ + + | | 2022-08-08 | [facility] | 7.4 | (missing) | (missing) | | (unavailable | [facility]55[facility]07 [facility] | | | + + + +-------+ + + + + | Result panel 248 | + + + + + +--------+ + + | | 2022-08-08 | [facility] | 41.2 | (missing) | (missing) | | (unavailable | [facility]55[facility]07 [facility] | | | | + + + +--------+ + + + + | Result panel 249 | + + + + + +--------+ + + | | 2022-08-08 | [facility] | 95.5 | (missing) | (missing) | | (unavailable | [facility]55[facility]07 [facility] | | | | + + + +--------+ + + + + | Result panel 250 | + + + + + +--------+ + + | | 2022-08-08 | [facility] | 30.2 | (missing) | (missing) | | (unavailable | [facility]55[facility]07 [facility] | | | | + + + +--------+ + + + + | Result panel 251 | + + + + + +--------+ + + | | 2022-08-08 | [facility] | 31.6 | (missing) | (missing) | | (unavailable | [facility]55[facility]07 [facility] | | | | + + + +--------+ + + + + | Result panel 252 | + + + + + +--------+ + + | | 2022-08-08 | [facility] | 13.5 | (missing) | (missing) | | (unavailable | [facility]55[facility]07 [facility] | | | | + + + +--------+ + + + + | Result panel 253 | + + + + + +-------+ + + | | 2022-08-08 | [facility] | 343 | (missing) | (missing) | | (unavailable | [facility]55[facility]07 [facility] | | | | + + + +-------+ + + Social History No information. Vital Signs + + + +---------+ | date | measurement | value | units | + + + +---------+ | 2021-11-12 00:00 | BMI | 18.9 | kg/m2 | + + + +---------+ | 2021-11-12 00:00 | BP_diastolic | 81 | mmHg | + + + +---------+ | 2021-11-12 00:00 | BP_systolic | 106 | mmHg | + + + +---------+ | 2021-11-12 00:00 | heart_rate | 99 | /min | + + + +---------+ | 2021-11-12 00:00 | height_metric | 162.56 | cm | + + + +---------+ | 2021-11-12 00:00 | height_standard | 64 | in | + + + +---------+ | 2021-11-12 00:00 | o2_saturation | 93 | % | + + + +---------+ | 2021-11-12 00:00 | respiration_rate | 26 | /min | + + + +---------+ | 2021-11-12 00:00 | temperature_metric | 36.5 | C | | | | | | + + + +---------+ | 2021-11-12 00:00 | | 97.7 | F | | | temperature_standar | | | | | d | | | + + + +---------+ | 2021-11-12 00:00 | weight_metric | 49.9 | kg | + + + +---------+ | 2021-11-12 00:00 | weight_standard | 110 | lb | + + + +---------+ | 2021-11-12 00:00 | weight_standard | 110.01 | lb | + + + +---------+ | 2022-01-14 00:00 | BMI | 18.9 | kg/m2 | + + + +---------+ | 2022-01-14 00:00 | BP_diastolic | 101 | mmHg | + + + +---------+ | 2022-01-14 00:00 | BP_systolic | 145 | mmHg | + + + +---------+ | 2022-01-14 00:00 | heart_rate | 104 | /min | + + + +---------+ | 2022-01-14 00:00 | height_metric | 162.56 | cm | + + + +---------+ | 2022-01-14 00:00 | height_standard | 64 | in | + + + +---------+ | 2022-01-14 00:00 | o2_saturation | 98 | % | + + + +---------+ | 2022-01-14 00:00 | respiration_rate | 19 | /min | + + + +---------+ | 2022-01-14 00:00 | temperature_metric | 37 | C | | | | | | + + + +---------+ | 2022-01-14 00:00 | | 98.6 | F | | | temperature_standar | | | | | d | | | + + + +---------+ | 2022-01-14 00:00 | weight_metric | 49.98 | kg | + + + +---------+ | 2022-01-14 00:00 | weight_standard | 110.19 | lb | + + + +---------+ | 2022-01-16 00:00 | BMI | 17.0 | kg/m2 | + + + +---------+ | 2022-01-16 00:00 | height_metric | 162.56 | cm | + + + +---------+ | 2022-01-16 00:00 | height_standard | 64 | in | + + + +---------+ | 2022-01-16 00:00 | weight_metric | 45 | kg | + + + +---------+ | 2022-01-16 00:00 | weight_standard | 99.21 | lb | + + + +---------+ | 2022-01-21 00:00 | BP_diastolic | 81 | mmHg | + + + +---------+ | 2022-01-21 00:00 | BP_systolic | 132 | mmHg | + + + +---------+ | 2022-01-21 00:00 | heart_rate | 103 | /min | + + + +---------+ | 2022-01-21 00:00 | o2_saturation | 95 | % | + + + +---------+ | 2022-01-21 00:00 | respiration_rate | 18 | /min | + + + +---------+ | 2022-01-21 00:00 | temperature_metric | 5427.22 | C | | | | | | + + + +---------+ | 2022-01-21 00:00 | | 9801 | F | | | temperature_standar | | | | | d | | | + + + +---------+ | 2022-04-04 00:00 | BMI | 16.7 | kg/m2 | + + + +---------+ | 2022-04-04 00:00 | height_metric | 162.56 | cm | + + + +---------+ | 2022-04-04 00:00 | height_standard | 64 | in | + + + +---------+ | 2022-04-04 00:00 | weight_metric | 44.2 | kg | + + + +---------+ | 2022-04-04 00:00 | weight_standard | 97.44 | lb | + + + +---------+ | 2022-04-08 00:00 | BP_diastolic | 81 | mmHg | + + + +---------+ | 2022-04-08 00:00 | BP_systolic | 138 | mmHg | + + + +---------+ | 2022-04-08 00:00 | heart_rate | 71 | /min | + + + +---------+ | 2022-04-08 00:00 | o2_saturation | 96 | % | + + + +---------+ | 2022-04-08 00:00 | respiration_rate | 18 | /min | + + + +---------+ | 2022-04-08 00:00 | temperature_metric | 36.67 | C | | | | | | + + + +---------+ | 2022-04-08 00:00 | | 98 | F | | | temperature_standar | | | | | d | | | + + + +---------+ | 2022-08-08 00:00 | BMI | 17.2 | kg/m2 | + + + +---------+ | 2022-08-08 00:00 | BP_diastolic | 75 | mmHg | + + + +---------+ | 2022-08-08 00:00 | BP_systolic | 124 | mmHg | + + + +---------+ | 2022-08-08 00:00 | heart_rate | 73 | /min | + + + +---------+ | 2022-08-08 00:00 | height_metric | 162.56 | cm | + + + +---------+ | 2022-08-08 00:00 | height_standard | 64 | in | + + + +---------+ | 2022-08-08 00:00 | o2_saturation | 95 | % | + + + +---------+ | 2022-08-08 00:00 | respiration_rate | 17 | /min | + + + +---------+ | 2022-08-08 00:00 | temperature_metric | 36.28 | C | | | | | | + + + +---------+ | 2022-08-08 00:00 | | 97.3 | F | | | temperature_standar | | | | | d | | | + + + +---------+ | 2022-08-08 00:00 | weight_metric | 45.56 | kg | + + + +---------+ | 2022-08-08 00:00 | weight_standard | 100.44 | lb | + + + +---------+"
--- OUTSIDE RECORDS SUMMARY | ~2022-08-25 | XMS | Continuity of Care Document ---
Demographics + + + | Address | [facility] [address] | | | [place] [address] | + + + | Preferred Language | Unknown | + + + | Marital Status | | + + + | Jew Affiliation | Unknown | + + + | Race | White | + + + | Ethnic Group | Not or | + + + Author + + + | Author | [facility] | + + + | Organization | [facility] | + + + | Address | [address] | | | [place] [address] | + + + | Phone | | + + + Care Team Providers + + + + | Care Bedspread Folder Name | Role | Phone | + [...] | 2021-11-12 00:00 | ALBUTEROL SULFATE | [facility] | + + + + | 2022-01-14 00:00 | ALBUTEROL SULFATE | [facility] | + + + + | 2021-11-12 00:00 | DOXYCYCLINE HYCLATE | [facility] | + + + + | 2015-07-19 00:00 | IBUPROFEN | [facility] | + + + + | 2015-07-19 00:00 | IBUPROFEN | [facility] | + + + + | 2015-07-19 00:00 | IBUPROFEN | [facility] | + + + + | 2015-07-19 00:00 | IBUPROFEN | [facility] | + + + + | 2015-07-19 00:00 | IBUPROFEN | [facility] | + + + + | 2022-04-08 00:00 | NICOTINE | [facility] | + + + + | 2022-01-14 00:00 | OSELTAMIVIR PHOSPHATE | [facility] | + + + + | 2022-01-14 00:00 | OSELTAMIVIR PHOSPHATE | [facility] | + + + + | 2022-01-14 00:00 | OSELTAMIVIR PHOSPHATE | [facility] | + + + + | 2022-01-14 00:00 | OSELTAMIVIR PHOSPHATE | [facility] | + + + + | 2015-07-19 00:00 | CLINDAMYCIN HCL | [facility] | + + + + | 2015-07-19 00:00 | CLINDAMYCIN HCL | [facility] | + + + + | 2015-07-19 00:00 | CLINDAMYCIN HCL | [facility] | + + + + | 2015-07-19 00:00 | CLINDAMYCIN HCL | [facility] | + + + + | 2015-07-19 00:00 | CLINDAMYCIN HCL | [facility] | + + + + | 2021-11-12 00:00 | AMOXICILLIN | [facility] | + + + + | 2022-01-14 00:00 | AMOXICILLIN | [facility] | + + + + | 2022-01-21 00:00 | AMOXICILLIN | [facility] | + + + + | 2022-04-08 00:00 | AMOXICILLIN | [facility] | + + + + | 2022-08-08 00:00 | AMOXICILLIN | [facility] | + + + + | 2021-11-12 00:00 | GABAPENTIN | [facility] | + + + + | 2022-01-14 00:00 | GABAPENTIN | [facility] | + + + + | 2022-01-21 00:00 | GABAPENTIN | [facility] | + + + + | 2022-04-08 00:00 | GABAPENTIN | [facility] | + + + + | 2022-08-08 00:00 | GABAPENTIN | [facility] | + + + + | 2021-11-12 00:00 | NABUMETONE | [facility] | + + + + | 2022-01-14 00:00 | NABUMETONE | [facility] | + + + + | 2022-01-21 00:00 | NABUMETONE | [facility] | + + + + | 2022-04-08 00:00 | NABUMETONE | [facility] | + + + + | 2022-08-08 00:00 | NABUMETONE | [facility] | + + + + | 2021-11-12 00:00 | predniSONE | [facility] | + + + + | 2022-01-14 00:00 | predniSONE | [facility] | + + + + | 2022-01-21 00:00 | predniSONE | [facility] | + + + + | 2022-04-08 00:00 | predniSONE | [facility] | + + + + | 2022-08-08 00:00 | predniSONE | [facility] | + + + + | 2021-11-12 00:00 | ACETAMINOPHEN | [facility] | + + + + | 2022-01-14 00:00 | ACETAMINOPHEN | [facility] | + + + + | 2022-01-21 00:00 | ACETAMINOPHEN | [facility] | + + + + | 2022-04-08 00:00 | ACETAMINOPHEN | [facility] | + + + + | 2022-08-08 00:00 | ACETAMINOPHEN | [facility] | + + + + | 2022-04-08 00:00 | LACTULOSE | [facility] | + + + + | 2021-07-14 00:00 | TIOTROPIUM BROMIDE | [facility] | + + + + | 2021-07-14 00:00 | TIOTROPIUM BROMIDE | [facility] | + + + + | 2021-07-14 00:00 | TIOTROPIUM BROMIDE | [facility] | + + + + | 2021-07-14 00:00 | TIOTROPIUM BROMIDE | [facility] | + + + + | 2022-08-08 00:00 | TIOTROPIUM BROMIDE | [facility] | + + + + | 2021-11-12 00:00 | DULOXETINE HCL | [facility] | + + + + | 2022-01-14 00:00 | DULOXETINE HCL | [facility] | + + + + | 2022-01-21 00:00 | DULOXETINE HCL | [facility] | + + + + | 2022-04-08 00:00 | DULOXETINE HCL | [facility] | + + + + | 2022-08-08 00:00 | DULOXETINE HCL | [facility] | + + + + | 2021-11-12 00:00 | DULOXETINE HCL | [facility] | + + + + | 2022-01-14 00:00 | DULOXETINE HCL | [facility] | + + + + | 2022-01-21 00:00 | DULOXETINE HCL | [facility] | + + + + | 2022-04-08 00:00 | DULOXETINE HCL | [facility] | + + + + | 2022-08-08 00:00 | DULOXETINE HCL | [facility] | + + + + | 2021-11-12 00:00 | ALBUTEROL SULFATE | [facility] | + + + + | 2022-01-14 00:00 | ALBUTEROL SULFATE | [facility] | + + + + | 2022-01-21 00:00 | ALBUTEROL SULFATE | [facility] | + + + + | 2022-04-08 00:00 | ALBUTEROL SULFATE | [facility] | + + + + | 2022-08-08 00:00 | ALBUTEROL SULFATE | [facility] | + + + + | 2021-07-14 00:00 | FLUTICASONE/SALMETEROL | [facility] | + + + + | 2021-07-14 00:00 | FLUTICASONE/SALMETEROL | [facility] | + + + + | 2021-07-14 00:00 | FLUTICASONE/SALMETEROL | [facility] | + + + + | 2021-07-14 00:00 | FLUTICASONE/SALMETEROL | [facility] | + + + + | 2021-07-14 00:00 | FLUTICASONE/SALMETEROL | [facility] | + + + + | 2022-01-14 00:00 | hydrOXYzine HCL | [facility] | + + + + | 2022-01-21 00:00 | hydrOXYzine HCL | [facility] | + + + + | 2022-04-08 00:00 | hydrOXYzine HCL | [facility] | + + + + | 2022-08-08 00:00 | hydrOXYzine HCL | [facility] | + + + + | 2022-04-08 00:00 | SENNOSIDES/DOCUSATE SODIUM | [facility] | | | | | + + + + Problems + + + + | date | description | facility | + + + + | 2014-05-01 00:00 | Flank pain | [facility] | + + + + | 2014-05-01 00:00 | Flank pain | [facility] | + + + + | 2014-05-01 00:00 | Flank pain | [facility] | + + + + | 2014-05-01 00:00 | Flank pain | [facility] | + + + + | 2014-05-01 00:00 | Flank pain | [facility] | + + + + | 2015-07-19 00:00 | Toothache | [facility] | + + + + | 2015-07-19 00:00 | Toothache | [facility] | + + + + | 2015-07-19 00:00 | Toothache | [facility] | + + + + | 2015-07-19 00:00 | Toothache | [facility] | + + + + | 2015-07-19 00:00 | Toothache | [facility] | + + + + | 2016-03-25 00:00 | Encounter for medical | [facility] | | | screening examination | | + + + + | 2016-03-25 00:00 | Encounter for medical | [facility] | | | screening examination | | + + + + | 2016-03-25 00:00 | Encounter for medical | [facility] | | | screening examination | | + + + + | 2016-03-25 00:00 | Encounter for medical | [facility] | | | screening examination | | + + + + | 2016-03-25 00:00 | Encounter for medical | [facility] | | | screening examination | | + + + + | 2020-12-06 00:00 | Acute exacerbation of | [facility] | | | chronic obstructive | | | | pulmonary disease | | + + + + | 2020-12-06 00:00 | Acute exacerbation of | [facility] | | | chronic obstructive | | | | pulmonary disease | | + + + + | 2020-12-06 00:00 | Acute exacerbation of | [facility] | | | chronic obstructive | | | | pulmonary disease | | + + + + | 2020-12-06 00:00 | Acute exacerbation of | [facility] | | | chronic obstructive | | | | pulmonary disease | | + + + + | 2020-12-06 00:00 | Acute exacerbation of | [facility] | | | chronic obstructive | | [...] + + | 2020-12-06 19:52 | 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 (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) | [facility] | | | DRUG THERAPY | | + + + + | 2020-12-06 19:52 | ALLERGY STATUS TO OTH | [facility] | | | DRUG/MEDS/BIOL SUBST STATUS | | | | | | + + + + | 2021-04-11 00:00 | Ruptured cerebral aneurysm | [facility] | | | | | + + + + | 2021-04-11 00:00 | Ruptured cerebral aneurysm | [facility] | | | | | + + + + | 2021-04-11 00:00 | Ruptured cerebral aneurysm | [facility] | | | | | + + + + | 2021-04-11 00:00 | Ruptured cerebral aneurysm | [facility] | | | | | + + + + | 2021-04-11 00:00 | Ruptured cerebral aneurysm | [facility] | | | | | + + + + | 2021-04-11 16:27 | NICOTINE DEPENDENCE, | [facility] | | | UNSPECIFIED, UNCOMPLICATED | | + + + + | 2021-04-11 16:27 | MIGRAINE, UNSP, NOT | [facility] | | | INTRACTABLE, WITHOUT STATUS | | | | SD | | + + + + | [...] + + + | 2021-04-11 16:27 | MCC (CURRENT) USE OF | [facility] | | | INHALED STEROIDS | | + + + + | 2021-04-11 16:27 | OTHER MCC (CURRENT) | [facility] | | | DRUG THERAPY | | + + + + | 2021-04-11 16:27 | ALLERGY STATUS TO OTH | [facility] | | | DRUG/MEDS/BIOL SUBST STATUS | | | | | | + + + + | 2021-07-13 00:00 | Polysubstance abuse | [facility] | + + + + | 2021-07-13 00:00 | Polysubstance abuse | [facility] | + + + + | 2021-07-13 00:00 | Polysubstance abuse | [facility] | + + + + | 2021-07-13 00:00 | Polysubstance abuse | [facility] | + + + + | 2021-07-13 00:00 | Polysubstance abuse | [facility] | + + + + | 2021-07-13 00:00 | Altered mental status | [facility] | + + + + | 2021-07-13 00:00 | Altered mental status | [facility] | + + + + | 2021-07-13 00:00 | Altered mental status | [facility] | + + + + | 2021-07-13 00:00 | Altered mental status | [facility] | + + + + | 2021-07-13 00:00 | Altered mental status | [facility] | + + + + | 2021-11-12 [...] + + | 2021-11-12 12:54 | 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 (CURRENT) | [facility] | | | DRUG THERAPY | | + + + + | 2021-11-12 12:54 | ALLERGY STATUS TO OTH | [facility] | | | DRUG/MEDS/BIOL SUBST STATUS | | | | | | + + + + | 2022-01-14 00:00 | Influenza due to influenza | [facility] | | | virus, type A, human | | + + + + | 2022-01-14 00:00 | Influenza due to influenza | [facility] | | | virus, type A, human | | + + + + | 2022-01-14 00:00 | Influenza due to influenza | [facility] | | | virus, type A, human | | + + + + | 2022-01-14 00:00 | Influenza due to influenza | [facility] | | | virus, type A, human | | + + + + | 2022-01-14 00:00 | Chronic obstructive | [facility] | | | pulmonary disease with | | | | acute exacerbation | | + + + + | 2022-01-14 00:00 | Chronic obstructive | [facility] | | | pulmonary disease with | | | | acute exacerbation | | + + + + | 2022-01-14 00:00 | Chronic obstructive | [facility] | | | pulmonary disease with | | | | acute exacerbation | | + + + + | 2022-01-14 00:00 | Chronic obstructive | [facility] | | | pulmonary disease with | [...] + + | 2022-01-14 07:52 | OTHER MCC (CURRENT) | [facility] | | | DRUG THERAPY | | + + + + | 2022-01-14 07:52 | ALLERGY STATUS TO OTH | [facility] | | | DRUG/MEDS/BIOL SUBST STATUS | | | | | | + + + + | 2022-01-16 00:00 | Chronic obstructive | [facility] | | | pulmonary disease | | + + + + | 2022-01-16 00:00 | Chronic obstructive | [facility] | | | pulmonary disease | | + + + + | 2022-01-16 00:00 | Chronic obstructive | [facility] | | | pulmonary disease | | + + + + | 2022-01-16 00:00 | Acute respiratory failure | [facility] | + + + + | 2022-01-16 00:00 | Acute respiratory failure | [facility] | + + + + | 2022-01-16 00:00 | Acute respiratory failure | [facility] | + + + + | 2022-01-16 [...] + + | 2022-01-16 16:36 | OTHER MCC (CURRENT) | [facility] | | | DRUG [...] | 2022-04-04 00:00 | Acute bronchopneumonia | [facility] | + + + + | 2022-04-04 00:00 | Acute bronchopneumonia | [facility] | + + + + | 2022-04-04 00:00 | Respiratory failure with | [facility] | | | hypercapnia | | + + + + | 2022-04-04 00:00 | Respiratory failure with | [facility] | | | hypercapnia | | + [...] + + | 2022-04-04 17:44 | OTHER MCC (CURRENT) | [facility] | | | DRUG [...] + + | 2022-08-08 18:29 | OTHER MCC (CURRENT) | [facility] | | | DRUG [...] (missing) | | (unavailable | 14:07 | [facility] | | | | | ) | [...] (missing) | (missing) | | (unavailable | 11::08 | [facility] | | | | | [...]
--- OUTSIDE RECORDS SUMMARY | ~2022-08-25 | XMS | Continuity of Care Document ---
Demographics + + + | Address | [facility] [address] | | | [place] [address] | + + + | Preferred Language | Unknown | + + + | Marital Status | Legally | + + + | Methodist Affiliation | Unknown | + + + | Race | White | + + + | Ethnic Group | Not or | + + + Author + + + | Author | [facility] | + + + | Organization | [facility] | + + + | Address | [address] [facility] [address] [facility] | | | [place] [address] | + + + | Phone | | + + + Care Team Providers + + + + | Care Room Service Supervisor Name | Role | Phone | + [...] | 2021-11-12 00:00 | ALBUTEROL SULFATE | [facility] | + + + + | 2022-01-14 00:00 | ALBUTEROL SULFATE | [facility] | + + + + | 2021-11-12 00:00 | DOXYCYCLINE HYCLATE | [facility] | + + + + | 2015-07-19 00:00 | IBUPROFEN | [facility] | + + + + | 2015-07-19 00:00 | IBUPROFEN | [facility] | + + + + | 2015-07-19 00:00 | IBUPROFEN | [facility] | + + + + | 2015-07-19 00:00 | IBUPROFEN | [facility] | + + + + | 2015-07-19 00:00 | IBUPROFEN | [facility] | + + + + | 2022-04-08 00:00 | NICOTINE | [facility] | + + + + | 2022-01-14 00:00 | OSELTAMIVIR PHOSPHATE | [facility] | + + + + | 2022-01-14 00:00 | OSELTAMIVIR PHOSPHATE | [facility] | + + + + | 2022-01-14 00:00 | OSELTAMIVIR PHOSPHATE | [facility] | + + + + | 2022-01-14 00:00 | OSELTAMIVIR PHOSPHATE | [facility] | + + + + | 2015-07-19 00:00 | CLINDAMYCIN HCL | [facility] | + + + + | 2015-07-19 00:00 | CLINDAMYCIN HCL | [facility] | + + + + | 2015-07-19 00:00 | CLINDAMYCIN HCL | [facility] | + + + + | 2015-07-19 00:00 | CLINDAMYCIN HCL | [facility] | + + + + | 2015-07-19 00:00 | CLINDAMYCIN HCL | [facility] | + + + + | 2021-11-12 00:00 | AMOXICILLIN | [facility] | + + + + | 2022-01-14 00:00 | AMOXICILLIN | [facility] | + + + + | 2022-01-21 00:00 | AMOXICILLIN | [facility] | + + + + | 2022-04-08 00:00 | AMOXICILLIN | [facility] | + + + + | 2022-08-08 00:00 | AMOXICILLIN | [facility] | + + + + | 2021-11-12 00:00 | GABAPENTIN | [facility] | + + + + | 2022-01-14 00:00 | GABAPENTIN | [facility] | + + + + | 2022-01-21 00:00 | GABAPENTIN | [facility] | + + + + | 2022-04-08 00:00 | GABAPENTIN | [facility] | + + + + | 2022-08-08 00:00 | GABAPENTIN | [facility] | + + + + | 2021-11-12 00:00 | NABUMETONE | [facility] | + + + + | 2022-01-14 00:00 | NABUMETONE | [facility] | + + + + | 2022-01-21 00:00 | NABUMETONE | [facility] | + + + + | 2022-04-08 00:00 | NABUMETONE | [facility] | + + + + | 2022-08-08 00:00 | NABUMETONE | [facility] | + + + + | 2021-11-12 00:00 | predniSONE | [facility] | + + + + | 2022-01-14 00:00 | predniSONE | [facility] | + + + + | 2022-01-21 00:00 | predniSONE | [facility] | + + + + | 2022-04-08 00:00 | predniSONE | [facility] | + + + + | 2022-08-08 00:00 | predniSONE | [facility] | + + + + | 2021-11-12 00:00 | ACETAMINOPHEN | [facility] | + + + + | 2022-01-14 00:00 | ACETAMINOPHEN | [facility] | + + + + | 2022-01-21 00:00 | ACETAMINOPHEN | [facility] | + + + + | 2022-04-08 00:00 | ACETAMINOPHEN | [facility] | + + + + | 2022-08-08 00:00 | ACETAMINOPHEN | [facility] | + + + + | 2022-04-08 00:00 | LACTULOSE | [facility] | + + + + | 2021-07-14 00:00 | TIOTROPIUM BROMIDE | [facility] | + + + + | 2021-07-14 00:00 | TIOTROPIUM BROMIDE | [facility] | + + + + | 2021-07-14 00:00 | TIOTROPIUM BROMIDE | [facility] | + + + + | 2021-07-14 00:00 | TIOTROPIUM BROMIDE | [facility] | + + + + | 2022-08-08 00:00 | TIOTROPIUM BROMIDE | [facility] | + + + + | 2021-11-12 00:00 | DULOXETINE HCL | [facility] | + + + + | 2022-01-14 00:00 | DULOXETINE HCL | [facility] | + + + + | 2022-01-21 00:00 | DULOXETINE HCL | [facility] | + + + + | 2022-04-08 00:00 | DULOXETINE HCL | [facility] | + + + + | 2022-08-08 00:00 | DULOXETINE HCL | [facility] | + + + + | 2021-11-12 00:00 | DULOXETINE HCL | [facility] | + + + + | 2022-01-14 00:00 | DULOXETINE HCL | [facility] | + + + + | 2022-01-21 00:00 | DULOXETINE HCL | [facility] | + + + + | 2022-04-08 00:00 | DULOXETINE HCL | [facility] | + + + + | 2022-08-08 00:00 | DULOXETINE HCL | [facility] | + + + + | 2021-11-12 00:00 | ALBUTEROL SULFATE | [facility] | + + + + | 2022-01-14 00:00 | ALBUTEROL SULFATE | [facility] | + + + + | 2022-01-21 00:00 | ALBUTEROL SULFATE | [facility] | + + + + | 2022-04-08 00:00 | ALBUTEROL SULFATE | [facility] | + + + + | 2022-08-08 00:00 | ALBUTEROL SULFATE | [facility] | + + + + | 2021-07-14 00:00 | FLUTICASONE/SALMETEROL | [facility] | + + + + | 2021-07-14 00:00 | FLUTICASONE/SALMETEROL | [facility] | + + + + | 2021-07-14 00:00 | FLUTICASONE/SALMETEROL | [facility] | + + + + | 2021-07-14 00:00 | FLUTICASONE/SALMETEROL | [facility] | + + + + | 2021-07-14 00:00 | FLUTICASONE/SALMETEROL | [facility] | + + + + | 2022-01-14 00:00 | hydrOXYzine HCL | [facility] | + + + + | 2022-01-21 00:00 | hydrOXYzine HCL | [facility] | + + + + | 2022-04-08 00:00 | hydrOXYzine HCL | [facility] | + + + + | 2022-08-08 00:00 | hydrOXYzine HCL | [facility] | + + + + | 2022-04-08 00:00 | SENNOSIDES/DOCUSATE SODIUM | [facility] | | | | | + + + + Problems + + + + | date | description | facility | + + + + | 2014-05-01 00:00 | Flank pain | [facility] | + + + + | 2014-05-01 00:00 | Flank pain | [facility] | + + + + | 2014-05-01 00:00 | Flank pain | [facility] | + + + + | 2014-05-01 00:00 | Flank pain | [facility] | + + + + | 2014-05-01 00:00 | Flank pain | [facility] | + + + + | 2015-07-19 00:00 | Toothache | [facility] | + + + + | 2015-07-19 00:00 | Toothache | [facility] | + + + + | 2015-07-19 00:00 | Toothache | [facility] | + + + + | 2015-07-19 00:00 | Toothache | [facility] | + + + + | 2015-07-19 00:00 | Toothache | [facility] | + + + + | 2016-03-25 00:00 | Encounter for medical | [facility] | | | screening examination | | + + + + | 2016-03-25 00:00 | Encounter for medical | [facility] | | | screening examination | | + + + + | 2016-03-25 00:00 | Encounter for medical | [facility] | | | screening examination | | + + + + | 2016-03-25 00:00 | Encounter for medical | [facility] | | | screening examination | | + + + + | 2016-03-25 00:00 | Encounter for medical | [facility] | | | screening examination | | + + + + | 2020-12-06 00:00 | Acute exacerbation of | [facility] | | | chronic obstructive | | | | pulmonary disease | | + + + + | 2020-12-06 00:00 | Acute exacerbation of | [facility] | | | chronic obstructive | | | | pulmonary disease | | + + + + | 2020-12-06 00:00 | Acute exacerbation of | [facility] | | | chronic obstructive | | | | pulmonary disease | | + + + + | 2020-12-06 00:00 | Acute exacerbation of | [facility] | | | chronic obstructive | | | | pulmonary disease | | + + + + | 2020-12-06 00:00 | Acute exacerbation of | [facility] | | | chronic obstructive | | [...] + + | 2020-12-06 19:52 | 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) | [facility] | | | DRUG THERAPY | | + + + + | 2020-12-06 19:52 | ALLERGY STATUS TO OTH | [facility] | | | DRUG/MEDS/BIOL SUBST STATUS | | | | | | + + + + | 2021-04-11 00:00 | Ruptured cerebral aneurysm | [facility] | | | | | + + + + | 2021-04-11 00:00 | Ruptured cerebral aneurysm | [facility] | | | | | + + + + | 2021-04-11 00:00 | Ruptured cerebral aneurysm | [facility] | | | | | + + + + | 2021-04-11 00:00 | Ruptured cerebral aneurysm | [facility] | | | | | + + + + | 2021-04-11 00:00 | Ruptured cerebral aneurysm | [facility] | | | | | + + + + | 2021-04-11 16:27 | NICOTINE DEPENDENCE, | [facility] | | | UNSPECIFIED, UNCOMPLICATED | | + + + + | 2021-04-11 16:27 | MIGRAINE, UNSP, NOT | [facility] | | | INTRACTABLE, WITHOUT STATUS | | | | [place] | | + + + + | [...] + + + | 2021-04-11 16:27 | PAINT DEPARTMENT SUPERVISOR (CURRENT) USE OF | [facility] | | | INHALED STEROIDS | | + + + + | 2021-04-11 16:27 | OTHER SENIOR LIVING (CURRENT) | [facility] | | | DRUG THERAPY | | + + + + | 2021-04-11 16:27 | ALLERGY STATUS TO OTH | [facility] | | | DRUG/MEDS/BIOL SUBST STATUS | | | | | | + + + + | 2021-07-13 00:00 | Polysubstance abuse | [facility] | + + + + | 2021-07-13 00:00 | Polysubstance abuse | [facility] | + + + + | 2021-07-13 00:00 | Polysubstance abuse | [facility] | + + + + | 2021-07-13 00:00 | Polysubstance abuse | [facility] | + + + + | 2021-07-13 00:00 | Polysubstance abuse | [facility] | + + + + | 2021-07-13 00:00 | Altered mental status | [facility] | + + + + | 2021-07-13 00:00 | Altered mental status | [facility] | + + + + | 2021-07-13 00:00 | Altered mental status | [facility] | + + + + | 2021-07-13 00:00 | Altered mental status | [facility] | + + + + | 2021-07-13 00:00 | Altered mental status | [facility] | + + + + | 2021-11-12 [...] + + | 2021-11-12 12:54 | 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) | [facility] | | | DRUG THERAPY | | + + + + | 2021-11-12 12:54 | ALLERGY STATUS TO OTH | [facility] | | | DRUG/MEDS/BIOL SUBST STATUS | | | | | | + + + + | 2022-01-14 00:00 | Influenza due to influenza | [facility] | | | virus, type A, human | | + + + + | 2022-01-14 00:00 | Influenza due to influenza | [facility] | | | virus, type A, human | | + + + + | 2022-01-14 00:00 | Influenza due to influenza | [facility] | | | virus, type A, human | | + + + + | 2022-01-14 00:00 | Influenza due to influenza | [facility] | | | virus, type A, human | | + + + + | 2022-01-14 00:00 | Chronic obstructive | [facility] | | | pulmonary disease with | | | | acute exacerbation | | + + + + | 2022-01-14 00:00 | Chronic obstructive | [facility] | | | pulmonary disease with | | | | acute exacerbation | | + + + + | 2022-01-14 00:00 | Chronic obstructive | [facility] | | | pulmonary disease with | | | | acute exacerbation | | + + + + | 2022-01-14 00:00 | Chronic obstructive | [facility] | | | pulmonary disease with | [...] + + | 2022-01-14 07:52 | OTHER SENIOR LIVING (CURRENT) | [facility] | | | DRUG THERAPY | | + + + + | 2022-01-14 07:52 | ALLERGY STATUS TO OTH | [facility] | | | DRUG/MEDS/BIOL SUBST STATUS | | | | | | + + + + | 2022-01-16 00:00 | Chronic obstructive | [facility] | | | pulmonary disease | | + + + + | 2022-01-16 00:00 | Chronic obstructive | [facility] | | | pulmonary disease | | + + + + | 2022-01-16 00:00 | Chronic obstructive | [facility] | | | pulmonary disease | | + + + + | 2022-01-16 00:00 | Acute respiratory failure | [facility] | + + + + | 2022-01-16 00:00 | Acute respiratory failure | [facility] | + + + + | 2022-01-16 00:00 | Acute respiratory failure | [facility] | + + + + | 2022-01-16 [...] + + | 2022-01-16 16:36 | OTHER SENIOR LIVING (CURRENT) | [facility] | | | DRUG [...] | 2022-04-04 00:00 | Acute bronchopneumonia | [facility] | + + + + | 2022-04-04 00:00 | Acute bronchopneumonia | [facility] | + + + + | 2022-04-04 00:00 | Respiratory failure with | [facility] | | | hypercapnia | | + + + + | 2022-04-04 00:00 | Respiratory failure with | [facility] | | | hypercapnia | | + [...] + + | 2022-04-04 17:44 | 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
[~2022-08-25 17:27] MED LIST changes: +LACTULOSE10 GM/15 M PO; +NICOTINE PATCH1 EACH TD; +STIMULANT LAXA1 EACH PO
--- OUTSIDE RECORDS SUMMARY | 2022-08-25 17:30 | XMS ---
PreManage Notification: VON SÁNCHEZ Security Butcher Assistant Events No recent Security Events currently on file CRITERIA MET - [facility] - 2 Visits in 30 Days CARE PROVIDERS -Vaibhav- Dentist: Attendant Lodging Facilities [facility] Dental [facility] PHONE: [phone] Isabel Reece Com Writer/Lap Runner 07/09/2022-Current PHONE: [phone] PHOEBE ABARCA [facility] Current PHONE: Unknown Curly has no Care Guidelines for this patient. E.D. VISIT COUNT (12 MO.) 6 T[facility] TOTAL 6 NOTE: Visits indicate total known visits. ED/UCC VISIT TRACKING (12 MO.) 08/25/2022 17:28 [facility] TYPE: Emergency COMPLAINT: - DIFFICULTY BREATHING 08/08/2022 18:29 [facility] TYPE: Emergency COMPLAINT: - SOB DIAGNOSES: - Allergy status to other drugs, medicaments and biological substances - Chronic obstructive pulmonary disease with (acute) exacerbation - Dependence on supplemental oxygen - Nicotine dependence, unspecified, uncomplicated - Other salvage determiner (current) drug therapy - Shortness of breath 04/04/2022 14:14 [facility] TYPE: Emergency COMPLAINT: - MULT COMPLAINTS 01/16/2022 10:42 [facility] TYPE: Emergency COMPLAINT: - DIFFICULTY BREATHING 01/14/2022 07:52 [facility] TYPE: Emergency COMPLAINT: - DIFFICULTY BREATHING DIAGNOSES: - Allergy status to other drugs, medicaments and biological substances - Chronic obstructive pulmonary disease with (acute) exacerbation - Contact with and (suspected) exposure to COVID-19 - Epilepsy, unspecified, not intractable, without status epilepticus - Influenza due to other identified influenza virus with other respiratory manifestations - Nicotine dependence, unspecified, uncomplicated - Other longterm (current) drug therapy - Shortness of breath 11/12/2021 12:54 [facility] TYPE: Emergency COMPLAINT: - DIFFICULTY BREATHING DIAGNOSES: - Allergy status to other drugs, medicaments and biological substances - Anxiety disorder, unspecified - Chronic obstructive pulmonary disease with (acute) exacerbation - COVID-19 - Epilepsy, unspecified, not intractable, without status epilepticus - Nicotine dependence, unspecified, uncomplicated - Other longterm (current) drug therapy - Shortness of breath INPATIENT VISIT TRACKING (12 MO.) 04/04/2022 17:44 [facility] TYPE: Medical Surgical COMPLAINT: - ACUTE RESPIRATORY FAILURE WITH HYPERCAPNIA DIAGNOSES: - Acquired absence of other specified parts of digestive tract - Acquired absence of other specified parts of digestive tract - Acute respiratory failure with hypercapnia - Allergy status to other drugs, medicaments and biological substances - Allergy status to other drugs, medicaments and biological substances - Chronic obstructive pulmonary disease with (acute) exacerbation - Chronic pain syndrome - Chronic pain syndrome - Chronic respiratory failure with hypoxia - Chronic respiratory failure with hypoxia - Constipation, unspecified - Constipation, unspecified - Contact with and (suspected) exposure to COVID-19 - Contact with and (suspected) exposure to COVID-19 - Emphysema, unspecified - Emphysema, unspecified - Epilepsy, unspecified, not intractable, without status epilepticus - Epilepsy, unspecified, not intractable, without status epilepticus - Nicotine dependence, cigarettes, uncomplicated - Nicotine dependence, cigarettes, uncomplicated - Other longterm (current) drug therapy - Other longterm (current) drug therapy - Other specified postprocedural states - Other specified postprocedural states - Personal history of other infectious and parasitic diseases - Personal history of other infectious and parasitic diseases - Pneumonia, unspecified organism - Rheumatoid arthritis, unspecified - Rheumatoid arthritis, unspecified - Tubal ligation status - Tubal ligation status 01/16/2022 16:[address] [facility] TYPE: Medical Surgical COMPLAINT: - INFLUENZA, ACUTE ON CHRONIC RESP FAIL, HYPERCAPNIA DIAGNOSES: - Acquired absence of other specified parts of digestive tract - Acquired absence of other specified parts of digestive tract - Acute respiratory failure with hypercapnia - Acute respiratory failure with hypercapnia - Acute respiratory failure with hypoxia - Allergy status to other drugs, medicaments and biological substances - Allergy status to other drugs, medicaments and biological substances - Contact with and (suspected) exposure to COVID-19 - Contact with and (suspected) exposure to COVID-19 - Dorsalgia, unspecified - Dorsalgia, unspecified - Emphysema, unspecified - Emphysema, unspecified - Epilepsy, unspecified, not intractable, without status epilepticus - Epilepsy, unspecified, not intractable, without status epilepticus - Influenza due to other identified influenza virus with other respiratory manifestations - Influenza due to other identified influenza virus with other respiratory manifestations - Nicotine dependence, cigarettes, uncomplicated - Nicotine dependence, cigarettes, uncomplicated - Other chronic pain - Other chronic pain - Other longterm (current) drug therapy - Other salvage determiner (current) drug therapy - Other specified postprocedural states - Other specified postprocedural states - Rheumatoid arthritis, unspecified - Rheumatoid arthritis, unspecified - Unspecified viral hepatitis C without hepatic coma - Unspecified viral hepatitis C without hepatic coma [email or web address]
[2022-08-25 21:41] VITALS: BP 133/70
--- NOTE | 2022-08-25 21:53 | EKG ---
[facility] [address] [facility] [place] [address] Signed Sinus tachycardia Biatrial enlargement Rightward axis Pulmonary disease pattern Abnormal ECG When compared with ECG of 08-AUG-2022 18:35, No significant change was found Confirmed by Nell Blanco MD () on 08/25/2022 9:53:31 PM Electronically Signed By: NELL BLANCO MD 08/25/[id number] PATIENT NAME: VON SÁNCHEZ PARIS Electrocardiogram DATE OF : 58 PHYSICIAN: NELL BLANCO MD REPORT #: [id number] REPORT IS CONFIDENTIAL AND NOT TO BE RELEASED WITHOUT AUTHORIZATION
--- NOTE | 2022-08-25 22:17 | NUR ---
ADMISSION COMPLETE BY THIS RN. pt ANXIOUS, RESTLESS IN BED. REPORTS METH USE THIS MORNING "I MIGHT HAVE". STATES SOMEONE LIVING IN HOUSE BRINGS HER DRUGS TO STAY THERE, WILL NOT DISCLOSE TO RN WHO THIS INDIVIDUAL IS. STATES SHE FEELS SAFE AT HOME. DAUGHTER PO BRINGS HER GROCERIES. SHE DOES NOT ANSWER QUESTIONS APPROPRIATELY, DIFFICULT TO FOLLOW CONVERSATION, STATES SHE HAS A CHAIR SHE PUSHES TO WALK. WALKER PLACED IN ROOM. RN STEPHEN IN ROOM ASSESSING pt.
--- NOTE | 2022-08-25 23:10 | NUR ---
IVF INFUSING PER ORDER. PT RESTING IN BED WITH EYES CLOSED. RESPIRATIONS EVEN. SpO2 98% ON 4L/NC. HR 60'S. OXYGEN TITRATED TO 3L/NC AT THIS TIME. CPOX IN PLACE. BED ALARM FOR SAFETY. CALL LIGHT IN REACH.
--- NOTE | 2022-08-25 23:24 | NUR ---
LATE ENTRY- PT TO FLOOR APPROX 2144 WITH JEEPER OPERATOR. BEDSIDE REPORT RECEIVED. PT ABLE TO TRANSFER SELF FROM STRETCHER TO BED. GAIT UNSTEADY. PT A&O X 3. PT HYPER VERBAL WITH ERRATIC BEHAVIORS. DIFFICULT ASSESSMENT PT UNABLE TO FOLLOW CONVERSATION AND ANSWER QUESTIONS APPROPRIATELY. PT ADMITED TO METH USE THIS MORNING. ON ARRIVAL TO FLOOR PT ON 5L/NC. SpO2 98%. OXYGEN TITRATED TO 4L. SATS REMAIN MID 90'S. HR 90'S. LUNGS DIMINISHED THROUGHOUT. CPOX PLACED. SKIN ASSESSMENT COMPLETE WITH ASPHALT MACHINE OPERATOR. PT WITH LARGE SCABBED OVER SKIN TEAR ON RIGHT FOREARM FROM FALL AT HOME. COCCYX AREA RED, BLANCHABLE. BRUISING ON BILAT KNEES NOTED. ICE CREAM AND WATER PROVIDED. PT ORIENTED TO ROOM AND NURSE CALL LIGHT. PT DENIES QUESTIONS OR CONCERNS AT THIS TIME. CALL LIGHT IN REACH. BED ALARM FOR SAFETY.
[2022-08-26 01:29] VITALS: BP 117/69
--- NOTE | 2022-08-26 01:53 | NUR ---
THIS BRAKE MECHANIC TOOK PATIENT VITALS AND DOCUMENTED ACCORDINGLY. THIS BRAKE MECHANIC AND RN GOT PATIENT UP TO COMMODE AND PATIENT DID NOT URINATE, PT. GIVEN FRESH GOWN AND BRIEF. PT. NOW BACK IN BED CALL LIGHT LEFT WITHIN REACH NO OTHER IMMEDIATE NEEDS AT THIS TIME.
--- NOTE | 2022-08-26 04:15 | NUR ---
PT LYING IN BED ON LEFT SIDE WITH EYES CLOSED. RESPIRATIONS EVEN. SpO2 99% ON 3L/NC. HR 60'S. BED ALARM FOR SAFETY. CALL LIGHT IN REACH.
[2022-08-26 05:27] VITALS: BP 144/86
--- NOTE | 2022-08-26 06:23 | NUR ---
IN pt ROOM FOR SEVERAL MINUTES TO DISCUSS REASONS FOR LAB DRAWS WITH pt. pt SHOWED ORDERS IN COMPUTER. CONTINUES TO QUESTION CARES. STARTS RAMBLING ABOUT INTESTINES, URANUS AND ORGASMS, LAUGHING LOUDLY. BED ALARM ON. RNS OUT OF ROOM AT THIS TIME.
--- NOTE | 2022-08-26 06:27 | NUR ---
NOTIFIED BY PRIMARY CLINICIAN PT REFUSING MORNING LAB DRAW. THIS RN AND POULTRY FARM MANAGER IN ROOM TO ATTEMPT TO EDUCATE. PT NOT RECEPTIVE. PT WITH INCREASED CONFUSION AND AGITATION THIS AM. PT CONTINUES WITH ERRATIC BEHAVIOR AND DIFFICULTY FOLLOWING CONVERSATION OR FINDING PROPER WORDS. VS WNL. PT DUE TO VOID. BLADDER SCANNED FOR 26 ML. MD NOTIFIED OF NO VOID AND PT BEHAVIOR. NO NEW ORDERS AT THIS TIME. MD WILL VISIT PT ON THE FLOOR SOON. PT PROVIDED WARM BLANKETS AND COFFEE. BEFORE THIS RN AND POULTRY FARM MANAGER LEFT ROOM PT CALM AND COOPERATIVE, BUT STILL REFUSING MORNING LAB DRAW. NO FURTHER NEEDS. BED ALARM FOR SAFETY. CALL LIGHT IN REACH.
--- NOTE | 2022-08-26 07:36 | NUR ---
received report from [facility] nurse. pt is alert, respirations even and regular. new bag of IV fluids hung. pt is talking on phone.
--- NOTE | 2022-08-26 08:02 | NUR ---
PT WAS ON THE PHONE, TALKING WITH DAUGHTER, PT WAS ACTING NORMAL, NO BEHAVIORS CALL LIGHT IN REACH
[2022-08-26 09:22] VITALS: BP 102/52
--- NOTE | 2022-08-26 11:04 | NUR ---
SPOKE TO PATIENT ABOUT HER DISCHARGE PLAN. 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 PATIENT HAS A WALKER, WHEELCHAIR AND A CANE TO USE. PATIENT'S DAUGHTERS HELP WITH SHOPPING,COOKING AND TRANSPORTATION. PATIENT CONTINUES TO SMOKE.PATIENT CAN DO HER OWN ADLS. DAUGHTER DINAH STATES THAT PATIENT CAN BE DIFFICULT TO DEAL WITH. PATIENT REFUSES SNF PLACEMENT OR HOMEHEALTH.DEMOGRAPHICS ARE CORRECT IN THE MEDICAL RECORDS.
--- NOTE | 2022-08-26 13:41 | NUR ---
PT IN BED. DIFFICULT TO UNDERSTAND WORDS WERE SOMETIMES SLURRED. PT INDICATES STRONG KYLE. APPEARS BURDENED BY A DIFFICULT EVENT IN CHILDHOOD, BUT COULD NOT UNDERSTAND DESCRIPTION OF EVENT. ASSURED HER OF GOD'S FORGIVENESS. EXERCISED MINISTRY OF PRESENCE. PT CONSENTED TO PRAYER. PRAYED,
[2022-08-26] MEDS ORDERED: AZITHROMYCIN250 MG PO (13:59)
[2022-08-26] MEDS ORDERED: PREDNISONE20 MG PO (14:01)
[2022-08-26 16:19] VITALS: BP 112/63
--- NOTE | 2022-08-26 16:29 | NUR ---
pt c/o nausea and would like a neb treatment. prn zofran given. vs completed and wnl.
== END 2022-08-26 18:35 | disposition home or self-care (01) ==
LOC: ED 17:27 → MS 17:29
PROVIDERS: ADMIT Family Medicine; ATTEND Family Medicine
DX: J44.1 Chronic obstructive pulmonary disease with (acute) exacerbation (principal); J96.21 Acute and chronic respiratory failure with hypoxia; D72.829 Elevated white blood cell count, unspecified; Z88.8 Allergy status to other drugs, medicaments and biological substances; Z79.899 Other long term (current) drug therapy; Z20.822 Contact with and (suspected) exposure to COVID-19
CPT/HCPCS: 36415; 71045; 80053; 81003; 82803; 83735; 83880; 84100; 85025; 87502; 93005; 93010; 94640; 99406; A9270; J0456; J0696; J1650; J2270; J2405; J2920; J2930; J7030; J7060; U0002

== ENCOUNTER 2023-01-06 13:54 | Inpatient (IN) | payer MEDICARE, OTHER ==
[2023-01-06] VITALS (7 sets, daily range): BP systolic 101–120; BP diastolic 43–97
[~2023-01-06] VITALS: Ht 162.6 cm; Wt 40.4 kg
[~2023-01-06 13:54] MED LIST changes: +AZITHROMYCIN250 MG PO; +IPRAT-ALBUT 0.5-3 ML INH
[2023-01-06 14:13] LABS: HEMATOCRIT 40.1 % (35.0-50.0); HEMOGLOBIN 13.2 g/dL (12.0-18.0); MCH 30.7 (27-36); MCHC 32.9 g/dl (30-36); MCV 93.3 fl (81-99); PLATELET COUNT 214 K/uL (140-440); RDW 13.4 (10.5-15.0)
[2023-01-06 14:22] LABS: ALBUMIN/GLOBULIN RATIO 0.95 (1.1-2.4); ANION GAP 8.9 (7-21); BILIRUBIN, TOTAL 1.2 ng/dL (0.2-1.0); BUN/CREATININE RATIO 23.17 (6.0-28.6); CALCIUM 9.6 mg/dL (8.5-10.1); CREATININE, SERUM 0.82 mg/dL (0.55-1.02); POTASSIUM 3.9 mmol/L (3.5-5.1); PROTEIN, TOTAL 8.2 g/dL (6.4-8.2)
[2023-01-06 14:31] LABS: LACTIC ACID, BLOOD 1.4 mmol/L (0.4-2.0)
[2023-01-06 14:32] LABS: BASE EXCESS, BLOOD GAS 6.5 mmol/L (-2-2); HCO3, BLOOD GAS 33.2 mmol/L (22-26); O2 SATURATION, BLOOD GAS 97.1 % (95.0-100.0); PCO2, BLOOD GAS 55.7 mmHg (35-45); PH, BLOOD GAS 7.38 (7.35-7.45); PO2, BLOOD GAS 85 mmHg (80-100); TOTAL CO2, BLOOD GAS 34.9
[2023-01-06 14:33] LABS: OXYGEN RECEIVED, BLOOD GAS 28%
[2023-01-06 14:35] LABS: LYMPHOCYTES, MANUAL DIFF 11; NEUTROPHILS, MANUAL DIFF 89
[2023-01-06 15:04] LABS: INFLUENZA B NAA NEGATIVE (NEGATIVE); RESPIRATORY SYNCYTIAL VIR NAA NEGATIVE (NEGATIVE)
[2023-01-06 15:42] LABS: BILIRUBIN, URINE POSITIVE (negative); BLOOD/HGB, URINE MODERATE (Negative); KETONE, URINE SMALL (Negative); LEUK ESTERASE, URINE TRACE (negative); NITRITE, URINE NEGATIVE (negative); PH, URINE 5.5 (5-7)
[2023-01-06 15:46] LABS: RED BLOOD CELLS, URINE 0-1 /hpf (0-5)
[2023-01-06 15:47] LABS: BACTERIA, URINE 2+ /hpf (negative); CASTS, URINE NONE SEEN \\lpf; CRYSTALS, URINE NONE SEEN (0-1+); WHITE BLOOD CELLS, URINE 41-50 /HPF (0-5)
[2023-01-06 15:48] LABS: COLLECTION TYPE, URINE CLEAN CATCH; EPITHELIAL CELLS, URINE 0 /lpf (0-1+); REFLEX CULTURE, URINE Yes (No)
[2023-01-06 15:56] LABS: AMPHETAMINES, URINE POSITIVE (NEGATIVE); BARBITURATES, URINE NEGATIVE (NEGATIVE); BENZODIAZEPINE, URINE NEGATIVE (NEGATIVE); BUPRENORPHINE, URINE NEGATIVE (NEGATIVE); CANNABINOID, URINE POSITIVE (NEGATIVE); COCAINE, URINE NEGATIVE (NEGATIVE); ECSTASY, URINE POSITIVE (NEGATIVE); FENTANYL, URINE NEGATIVE (NEGATIVE); METHADONE, URINE NEGATIVE (NEGATIVE); OPIATES, URINE NEGATIVE (NEGATIVE); OXYCODONE, URINE NEGATIVE (NEGATIVE); PHENCYCLIDINE, URINE NEGATIVE (NEGATIVE)
--- NOTE | 2023-01-06 17:25 | NUR ---
62 YR OLD FEMALE PATIENT ADMITTED TO CCU VIA STRETCHER UNDER DR. BLANCO WITH DX OF EXBERATION COPD, POLYSUBSTANCE ABUSE, UTI. UPONN ADMIT PATIENT IS VERY DROWSY AND NOT ABLE TO ANSWERE QUESTIONS. NOT FOLLOWING COMMANDS, WILL MOAN AND WITHDRAWAL. BIPAP SETTINGS, 14/6 RR-10, FIO2-28. ADMISSION PROCESS STARTED. VERY DIFFICULT TO ASSESS, NOT ABLE TO BE INVOLVED WITH ADMISSION.
--- NOTE | 2023-01-06 18:55 | NUR ---
REMAINS ON BIPAP. NO CHANGES IN BIBAP SETTING. LAYING ON LEFT SIDE. REMAINS VERY DROWSY.
--- NOTE | 2023-01-06 19:15 | NUR ---
DR. BLANCO UPDATED ON PATIENT MENTAL STATUS PATIENT REMAINS LETHARGIC. IS AWARE OF FLUID STATUS ORDERS RECEIVED, TO GIVE 500 ML BOLUS OVER 1 HR THEN D5 LR AT 100 ML/HR.
--- NOTE | 2023-01-06 19:26 | NUR ---
REPORT TO NEXT SHIFT.
--- NOTE | 2023-01-06 19:45 | NUR ---
shift report received from marivel ramsay, pt resting quietly in bed, on bipap. settings unchanged-14/6, 28% fio2. rate set to 10. pt intermittently restless and will pull at bipap mask and will briefly open eyes, does not answer questions then returns to resting quietly. pt moved to ccu room # 128 for safety/closer observation. bed alarm on and call light in reach.
--- NOTE | 2023-01-06 20:25 | NUR ---
DR REDDY TO RN STATION AND ROUNDED ON pt, MD UPDATED ON pt. NO NEW ORDERS RECEIVED AT THIS TIME.
--- NOTE | 2023-01-06 20:44 | NUR ---
ASSESSMENT COMPLETE, NO SCHEDULED MEDS AT THIS TIME. pt AWOKE TO VOICE, OPENED EYES, SMILED, AND GRABBED THIS RN'S HAND THIS RN INTRODUCED SELF TO pt. pt STATED HER FIRST AND LAST NAME AND FOLLOWED DIRECTIONS W/ TURNING TO RIGHT SIDE W/ POSTERIOR LUNG AUSCULTATION. AIR MOVEMENT NOTED, FAINT EXP WHEEZES IN UPPER LOBES. DIMINISHED IN LOWER LOBES. SINUS RHYTHM PER MONITOR, HR 80'S. pt AFEBRILE. ALLEVYN TO COCCYX C/D/I. MAINTENANCE IV FLUIDS INFUSING DIRECTED, IV SITES X2 WNL AND FLUSHES EASILY. BED ALARM ON AND pt REMAINS IN VIEW OF RN STATION.
--- NOTE | 2023-01-06 21:53 | NUR ---
BIPAP ALARMING D/T LEAK, BIPAP MASK ADJUSTED WITH HELP FROM COMPOSITION ROLL MAKER AND CUTTER PITA. RT SARKIS AND RT VELVET IN ROOM TO HELP ADJUST MASK. BIPA REMAINS IN PLACE, SETTINGS UNCHANGED. BED ALARM ON AND CALL LIGHT IN REACH. pt IN VIEW OF RN STATION.
--- NOTE | 2023-01-06 22:28 | EKG ---
[facility] [address] [place] [address] Signed Normal sinus rhythm Biatrial enlargement Abnormal ECG When compared with ECG of 25-AUG-2022 17:47, No significant change was found Confirmed by Nell Blanco MD () on 01/06/2023 10:28:29 PM Electronically Signed By: NELL BLANCO MD 01/06/[id number] PATIENT NAME: VON SÁNCHEZ PARIS Electrocardiogram DATE OF : 58 PHYSICIAN: NELL BLANCO MD REPORT #: [id number] REPORT IS CONFIDENTIAL AND NOT TO BE RELEASED WITHOUT AUTHORIZATION
--- NOTE | 2023-01-06 22:46 | NUR ---
ROUNDED ON pt, pt RESTING QUIETLY IN BED. BED ALARM ON. BIPAP REMAINS IN PLACE, SETTINGS UNCHANGED. SPO2 96%, HR 67. RR 16. NO DISTRESS NOTED. IV SITES X2 REMAINS WNL, IV FLUIDS INFUSING DIRECTED. pt REMAINS IN VIEW OF RN STATION.
--- NOTE | 2023-01-06 23:12 | NUR ---
INSIDE OF BIPAP MASK WIPED DOWN FROM HUMIDIFICATION, ORAL CARE COMPLETED, pt WITH POOR DENTITION AND MISSING ALL TEETH. BIPAP MASK BACK IN PLACE, SETTINGS UNCHANGED. CLEAR GEL CUSHION REMAINS TO BRIDGE OF NOSE.
--- NOTE | 2023-01-06 23:18 | NUR ---
RT VELVET IN ROOM AND ADJUSTED BIPAP SETTINGS, NOW 01/13, 28% FI02. CLINICAL DATA MANAGEMENT DIRECTOR KELLY AWARE. SPO2 SUSTAINING IN MID 90'S, HR 60'S, SINUS RHYTHM.
[2023-01-07] VITALS (15 sets, daily range): BP systolic 107–131; BP diastolic 56–103
--- NOTE | 2023-01-07 | NUR ---
REPORT RECEIVED AND CARE ASSUMED FROM LUIS GALVAN. PT VSS AND NAD NOTED VIA DIRECT OBS AND CONTINUOUS MONITOR.
--- NOTE | 2023-01-07 00:02 | NUR ---
BEDSIDE REPORT GIVEN TO CCU LUIS CARDONA AND TO TAKE OVER CARE AT THIS TIME. LUIS CARDONA IN ROOM TO ASSIST WITH BLADDER SCAN. pt YET TO VOID, ATTENDS DRY. BLADDER SCANNED WITH 0 MLS RESULT. LUIS CARDONA TO CONTINUE TO MONITOR.
--- NOTE | 2023-01-07 00:51 | NUR ---
SHIFT ASSESSMENT COMPLETE. SEE [facility]. BIPAP IN PLACE. PT FOLLOWS SOME COMMANDS. PT RESTING IN BED, EASILY AWAKENED TO VOICE. BLADDER SCAN SHOWS NO URINE. BED IN LOW, LOCKED POSITION WITH BED ALARM ON. PT IN DIRECT LINE OF VISION TO THIS RN. VSS NAD NAD NOTED VIA CONTINUOUS MONITOR AND DIRECT OBS.
--- NOTE | 2023-01-07 01:24 | NUR ---
DR BLANCO NOTIFIED THAT PT HAS HAD NO UO WITH ZERO URINE SHOWING VIA BLADDER SCANNER. ORDERS RECEIVED, READ BACK AND ENTERED. PT VSS NAD NAD NOTED VIA DIRECT OBS AND CONTINUOUS MONITOR.
--- NOTE | 2023-01-07 02:46 | NUR ---
PT RESTLESS, PULLING AT BIPAP. PT EDUCATED TO NEED TO LEAVE BIPAP IN PLACE. PT EASILY REDIRECTED. PT MUMBLING RESPONSES. PT FOLLOWING DIRECTIONS INTERMITTENTLY. NAD NOTED AND VSS VIA CONTINUOUS MONITOR AND DIRECT OBS.
--- NOTE | 2023-01-07 04:11 | NUR ---
SHIFT ASSESSMENT COMPLETE. SEE [facility] FOR DETAILS. PT RESTING IN BED WITH EYES CLOSED. EASILY AWAKENED TO VOICE. PT MUMBLES ORIENTATION QUESTION ANSWERS, UNABLE TO DETERMINE ANSWERS. PT FOLLOWS COMMANDS INTERMITTENTLY. PT DENIES NEEDS. BIPAP IN PLACE, LINES PATENT. BED IN LOW, LOCKED POSITION WITH BED ALARM ON FOR PT SAFETY. VSS AND NAD NOTED VIA DIRECT OBS AND CONTINUOUS MONITOR.
[2023-01-07 05:20] LABS: PH, VENOUS 7.438 (7.31-7.41)
[2023-01-07 05:28] LABS: HEMATOCRIT 32.8 % (35.0-50.0); HEMOGLOBIN 10.7 g/dL (12.0-18.0); MCH 30.5 (27-36); MCHC 32.6 g/dl (30-36); MCV 93.7 fl (81-99); PLATELET COUNT 164 K/uL (140-440); RBC 3.51 M/ul (4.3-5.7); RDW 13.4 (10.5-15.0)
[2023-01-07 05:47] LABS: ALBUMIN 2.9 g/dL (3.4-5.0); ALBUMIN/GLOBULIN RATIO 0.81 (1.1-2.4); ANION GAP 7.6 (7-21); BILIRUBIN, TOTAL 0.4 ng/dL (0.2-1.0); BUN/CREATININE RATIO 29.68 (6.0-28.6); CALCIUM 8.7 mg/dL (8.5-10.1); CREATININE, SERUM 0.64 mg/dL (0.55-1.02); MAGNESIUM 1.7 mg/dL (1.8-2.4); POTASSIUM 3.6 mmol/L (3.5-5.1); PROTEIN, TOTAL 6.5 g/dL (6.4-8.2)
[2023-01-07 06:06] LABS: BANDS, MANUAL DIFF 6; LYMPHOCYTES, MANUAL DIFF 4; MONOCYTES, MANUAL DIFF 2; NEUTROPHILS, MANUAL DIFF 88
--- NOTE | 2023-01-07 06:06 | NUR ---
PT KICKED FEET OVER RAISED LOWER SIDE RAIL. THIS RN TOLD PT SHE WAS GOING TO HELP PLACE HER FEET BACK IN BED. WHILE HELPING REPOSITION PT FEET, PT KICKED THIS RN IN THE ABDOMEN WITH BOTH FEET. PT TOLD NOT TO KICK STAFF. PT YELLED THROUGH BIPAP "GET OUT OF HERE, BITCH". PT EDUCATED TO APPROPRIATE LANGUAGE WITH STAFF. PT NON RECEPTIVE. BED IN LOW, LOCKED POSITION WITH BED ALARM ON FOR PT SAFETY. BIPAP IN PLACE. PT VSS AND NAD NOTED VIA DIRECT OBS AND CONTINUOUS MONITOR.
--- NOTE | 2023-01-07 07:02 | NUR ---
REPORT GIVEN AND CARE ENDORSED TO ONCOMING SHIFT RN'S. PT VSS AND NAD NOTED VIA CONTINUOUS MONITOR AND DIRECT OBS.
--- NOTE | 2023-01-07 08:46 | NUR ---
Discussed meth use with patient. She reports she tries every day not to use but it has been very difficult to stop. She does not want her drug use discussed if family is in the room. becomes tearful during discussion and talks about her drug use being associated with her difficulties in life. Is very concerned that her daughter's will hear of her drug use and disown her. Educated that if she does not want these results disclosed to her children that we legally cannot tell them. Dr Hammond and rest of CCU dayshift staff educated about her wishes. Will pass on to patient registrar as well. Offered local resources such as [facility] and [facility]. Patient declines information stating she has worked with both servies in the past and she has their contact information. Very thankful for discussion. Will continue to educate and support her as she seems receptive to education.
--- NOTE | 2023-01-07 10:43 | NUR ---
Call from patients daughter Rubi requesting update. This was provided. She reports she or her sister will be in later today. Patient notified.
--- NOTE | 2023-01-07 10:45 | NUR ---
Patient awake in room. Remains on oxygen, difficulty speaking full sentences due to shortness of breath. Discussed that she lives home alone, has a friend she states she needs to stay away from because he is the one who brings her her drugs of choice, but she has difficulty staying off of them. States she absolutely does not want her daughters to know about her drug use because she does not want to lose her family. States she does have stairs and she tries very hard to be careful but she does have a tendency to fall. States she has a walker and a wheelchair at home. Is on chronic oxygen at all times and gets oxygen from [facility]. States she does also have a nebulizer machine she uses. Unable to shower at home due to COPD an enclosed shower makes it too difficult to breath. Has meals on wheels delivered. States she believes she gets caregiver hours through [facility] but is hesitent to have someone come into her home to assist her. Her daughter does help frequently. States she has 2 daughters who both assist her with transportation. Offered to contact [facility] for patient, she is hesitent to use their services. States she knows what she needs to do to stop using substances, she just doesnt know why she can't quit using them. Discussed in depth, [facility] as an option and how they may help. Informed her this nurse can call and set up initial meeting and she can decide whether to continue after. Verbalizes understanding.
--- NOTE | 2023-01-07 10:59 | NUR ---
Called [facility] and information provided for patient. Spoke with Madison at [facility]. States she will set someone up to come to facility to speak with patient.
--- NOTE | 2023-01-07 11:10 | NUR ---
PATIENT UP TO BATHROOM WITH SBA FOR SAFETY, PATIENT TOLERATED ACTIVITY WELL. BACK TO BED, WASHCLOTH USED ON BACK AND ARMPITS. REFUSED GOWN CHANGE. DAMP DRAWSHEET REPLACED. CALL LIGHT IN EASY REACH.
--- NOTE | 2023-01-07 11:11 | NUR ---
UP TO BATHROOM, BACK TO BED. REPORTS DIZZINESS. STATES SHE HAS BEEN HAVING DIZZY SPELLS INTERMITTENTLY WHEN SHE IS UP WITH ACTIVITY AND FEELS SHOB. RESOLVES WITH REST AND ONCE SHE CATCHES HER BREATH.
[2023-01-07] MEDS ORDERED: IPRAT-ALBUT 0.5-3 ML INH (11:20)
--- NOTE | 2023-01-07 11:20 | NUR ---
MED REC COMPLETE
--- NOTE | 2023-01-07 11:38 | NUR ---
UR NOTE [facility] COPD (ISC) INPATIENT 01/06/23 CLINICAL INDICATIONS FOR ADMISSION TO INPATIENT CARE MET GL DAY 1 01/07/23 MET GL DAY 2
--- NOTE | 2023-01-07 11:53 | NUR ---
Lunch tray set up, patient just completed her nebulizer treatment with RT. Reported to Nico RT that she is out of her albuterol at home. Will pass on to next shift and MD so that she gets discharged with script for this. Patient has also visited with Asif from pharmacy. Denies any needs.
--- NOTE | 2023-01-07 14:31 | NUR ---
PATIENT HAS VISITED WITH [facility], DENIES ANY NEEDS AT THIS TIME.
--- NOTE | 2023-01-07 15:03 | NUR ---
INTO ROOM AT PATIENT REQUEST, SHE REPORTS SHE FELT LIKE HER LFA IV WAS LEAKING. DRESSING SLIGHTLY MOIST, LINE FLUSHED, AND FOUND THAT IS IS LEAKING. FLUIDS SWITCHED TO RH IV THAT WAS FLUSHED AND IS PATENT. RFA IV REMOVED. NO SWELLING OR REDNESS NOTED. PATIENT DENIES ANY PAIN IN AREA OF IV STATES "I JUST FELT LIKE IT WAS WET".
--- NOTE | 2023-01-07 16:57 | NUR ---
PATIENT RESTING IN BED, PERSONAL UNDERWEAR ON WITH ASSISTANCE, DRAW SHEET REPLACED. LEFT LEG ELEVATED ON THREE PILLOWS, PATIENT REPOSITIONED IN BED. CALL LIGHT IN EASY REACH. IN ROOM.
--- NOTE | 2023-01-07 17:10 | NUR ---
DAUGHTER AT BEDSIDE AT THIS TIME
--- NOTE | 2023-01-07 17:13 | NUR ---
Patient daughter in room visiting with patient.
--- NOTE | 2023-01-07 17:53 | NUR ---
PATIENT REPORTS RH IV SITE IS BURNING SLIGHTLY. INFUSION STOPPED, LINES FLUSHES WELL AND RETURNS BLOOD. INFUSION RESTARTED, WARM BLANKET PLACED AROUND SITE. DENIES ANY FURTHER NEEDS AT THIS TIME.
--- NOTE | 2023-01-07 18:48 | NUR ---
PATIENT REQUESTING HER PURSE OUT OF CLOSET TO PLACE HER RINGS IN THAT SHE REMOVED. GIVEN CUP WITH HER PATIENT LABEL ON IT. SHE PLACED RINGS IN THIS AND THEN IN HER PURSE. PURSE PLACED IN CLOSET. PATIENT REPORTS SHE HAS HAD DIZZY SPELLS ALL WEEK. TOLD HER I WOULD MENTION THIS FOR ASSISTANT DEAN TO PASS ON THE MD. DID DISCUSS WITH HOW LOW HER OXYGEN LEVELS WERE WHEN MEDICS ARROVED TO HER HOME THAT THIS COULD BE EITHER A CAUSE OR CONTRIBUTING TO THIS. PATIENT DENIES ANY OTHER NEEDS.
--- NOTE | 2023-01-07 19:20 | NUR ---
REPORT RECEIVED AND CARE ASSUMED FROM LUIS JORDAN. PT VSS PER CONTINUOUS MONITOR.
--- NOTE | 2023-01-07 20:18 | NUR ---
SHIFT ASSESSMENT COMPLETE. SEE [facility]. PT REQUESTED AND PROVIDED ASSIST TO BATHROOM AND BACK TO BED WITHOUT INCIDENT. PT DENIES ADDITIONAL NEEDS. NC IN PLACE, IV PATENT AND INFUSING PER ORDERS. BED IN LOW, LOCKED POSITION WITH BED ALARM ON. PT VERBALIZES UNDERSTANDING TO USE CALL LIGHT WITH NEEDS. VSS AND NAD NOTDE VIA DIRECT OBS, PT STATEMENT AND CONTINUOUS MONITOR.
--- NOTE | 2023-01-07 20:55 | NUR ---
DR BLANCO NOTIFIED OF PT REQUEST FOR SLEEP AID. TO ENTER ORDER.
--- NOTE | 2023-01-07 22:12 | NUR ---
PT TEARFUL. PT STATES SHE IS THINKING ABOUT HER BROTHER THAT 10 YEARS AGO AND THAT SHE WANTS HER DAUGHTER TO GET A GASTRIC BYPASS BECAUSE SHE IS TOO CHUBBY. THERAPUTIC LISTENING PROVIDED. PT DENIES ADDITIONAL NEEDS AT THIS TIME. PT REPOSITIONED, WARM BLANKET PROVIDED. BED IN LOW, LOCKED POSITION WITH BED ALARM ON. CALL LIGHT IN REACH. VSS AND NAD NOTED VIA DIRECT OBS, CONTINUOUS MONITOR AND PT STATEMENT.
[2023-01-08] VITALS (7 sets, daily range): BP systolic 109–160; BP diastolic 64–112
--- NOTE | 2023-01-08 00:36 | NUR ---
PT ASSIST TO BATHROOM AND BACK TO BED PER PT REQUEST WITHOUT INCIDENT. PT DENIES ADDITIONAL NEEDS. 3L NC IN PLACE. NAD NOTED AND VSS PER DIRECT OBS AND CONTINUOUS MONITOR.
--- NOTE | 2023-01-08 02:05 | NUR ---
SHIFT ASSESSMENT COMPLETE. [facility]. PT REQUESTED AND PROVIDED ASSIST TO BATHROOM AND BACK TO BED WITHOUT INCIDENT. PT ALERT AND ORIENTED. PT DENIES NEEDS AT THIS TIME. VSS AND NAD NOTED VIA PT STATEMENT, DIRECT OBS AND CONTINUOUS MONITOR.
--- NOTE | 2023-01-08 04:19 | NUR ---
PT RESTING IN BED WITH EYES CLOSED. PT AWAKENS TO VOICE. PT DENIES NEES OR PAIN. CALL LIGHT AND PERSONAL ITEMS IN REACH. VSS AND NAD NOTED VIA PT STATEMENT, DIRECT OBS ABD CONTINUOUS MONITOR.
[2023-01-08 05:28] LABS: BASOPHILS 0.2 % (0-2); HEMATOCRIT 30.8 % (35.0-50.0); HEMOGLOBIN 10.1 g/dL (12.0-18.0); LYMPHOCYTES 2.5 % (24-44); MCH 30.6 (27-36); MCHC 32.8 g/dl (30-36); MCV 93.5 fl (81-99); MONOCYTES 2.2 % (0-12); NEUTROPHILS 95.1 % (39-80); PLATELET COUNT 176 K/uL (140-440); RDW 13.4 (10.5-15.0)
[2023-01-08 05:52] LABS: ALBUMIN 2.5 g/dL (3.4-5.0); ALBUMIN/GLOBULIN RATIO 0.74 (1.1-2.4); ANION GAP 9.9 (7-21); BILIRUBIN, TOTAL 0.2 ng/dL (0.2-1.0); BUN/CREATININE RATIO 29.03 (6.0-28.6); CALCIUM 8.4 mg/dL (8.5-10.1); CREATININE, SERUM 0.62 mg/dL (0.55-1.02); POTASSIUM 3.9 mmol/L (3.5-5.1); PROTEIN, TOTAL 5.9 g/dL (6.4-8.2)
--- NOTE | 2023-01-08 06:25 | NUR ---
PT RESTING IN BED WITH EYES CLOSED. PT AWAKENS EASILY TO VOICE. PT DENIES NEEDS. CALL LIGHT IN REACH. VSS AND NAD NOTED VIA DIRECT OBS AND CONTINUOUS MONITOR.
--- NOTE | 2023-01-08 07:30 | NUR ---
REPORT RECEIVED FROM BRENDAN SMITH. PT RESTING IN BED WEARING O2/3L WITH SPO2 96%.
--- NOTE | 2023-01-08 09:30 | NUR ---
IN TO DO AM MEDS AND ASSESSMENT-PT SITTING UP AT BEDSIDE, RESP VERY LABORED, INTO BATHROOM INDEPENDENTLY AND BACK AND SHE DOES STATE SHE FEELS SHE IS AT HER BASELINE, RT IN TO DO NEB TX.
--- NOTE | 2023-01-08 09:36 | NUR ---
CCU ROUNDS. UNABLE TO VISIT. PHYSICAL THERAPY WITH PT. PROVIDED PRAYER.
--- NOTE | 2023-01-08 10:11 | NUR ---
Patient appears more clear with conversation. Discussed need for for home health PT/OT and bath aide. Prefers to use [facility]. Also states she does want a caregiver in her home if possible. Yesterday was unsure.
--- NOTE | 2023-01-08 10:22 | NUR ---
Called and spoke with Sandra Iqbal at [facility]. Patient is approved for 18.5 hours/week for caregiver. Caregiver is Blake, Daughter. Patient states she thinks it's too much for her daughter now. Informed her that if it is, she and her daughter need to speak with [facility] to find another caregiver if needed. Verbalizes understanding.
--- NOTE | 2023-01-08 11:04 | NUR ---
DR BLANCO UPDATED ON PT CONDITION.
[2023-01-08] MEDS ORDERED: CEFPODOXIME PR200 MG PO (11:22)
[2023-01-08] MEDS ORDERED: AZITHROMYCIN250 MG PO (11:23)
[2023-01-08] MEDS ORDERED: BENZONATATE100 MG PO (11:24)
[2023-01-08] MEDS ORDERED: PREDNISONE20 MG PO (11:26)
--- NOTE | 2023-01-08 12:30 | NUR ---
PT HAS FINISHED LUNCH, UP TO BR, BACK TO BED.
--- NOTE | 2023-01-08 13:51 | NUR ---
UR NOTE [facility]CG COPD (ISC) INPATIENT 01/08/23 MET GL DAY 3
--- NOTE | 2023-01-08 13:54 | NUR ---
CALLED PTS DAUGHTER YURIY PER PTS REQUEST. DAUGHTER INFORMED PT WAS BEING DISCHARGED TODAY AND WAS REQUESTING A RIDE AND A CHANGE OF CLOTHES. DAUGHTER STATES SHE CAN BE HERE AT 1700 ONCE SHE IS OFF WORK. PRIMARY RN NOTIFIED.
--- NOTE | 2023-01-08 14:21 | NUR ---
Referral faxed to [facility].
--- NOTE | 2023-01-08 15:07 | NUR ---
PT RESTING IN BED, ON 3L/O2, SPO2 99% AND HR 80'S, EYES CLOSED AND PT LOOKING RESTFUL.
--- NOTE | 2023-01-08 16:45 | NUR ---
RT IN TO DO NEB TX FOR PT.
--- NOTE | 2023-01-08 17:30 | NUR ---
PT SITTING UP IN BED EATING DINNER, NO REQUESTS AT THIS TIME.
--- NOTE | 2023-01-08 18:00 | NUR ---
DISCHARGED INSTRUCTIONS GIVEN TO PT AND HER DAUGHTER, THEY BOTH VERBALIZE UNDERSTANDING AND [facility] CALLED TO VERIFY HOURS AND PERSCRIPTIONS. PT WAS WHEELED OUT IN WC BY RAG GRADER ON HER HOME O2 AT 3L/NC.
== END 2023-01-08 18:05 | disposition home or self-care (01) | DRG 871 ==
LOC: ED 13:54 → CCU 16:51
PROVIDERS: Emergency Medicine; ADMIT Family Medicine; ATTEND Family Medicine
PROC: 3E03329 Introduction of Other Anti-infective into Peripheral Vein, Percutaneous Approach (ICD-10-PCS; principal; 2023-01-06)
PROC: 5A09357 Assistance with Respiratory Ventilation, Less than 24 Consecutive Hours, Continuous Positive Airway Pressure (ICD-10-PCS; 2023-01-06)
PROC: 4A033R1 Measurement of Arterial Saturation, Peripheral, Percutaneous Approach (ICD-10-PCS; 2023-01-06)
DX: A41.9 Sepsis, unspecified organism (principal); E43 Unspecified severe protein-calorie malnutrition; J96.21 Acute and chronic respiratory failure with hypoxia; J44.1 Chronic obstructive pulmonary disease with (acute) exacerbation; N39.0 Urinary tract infection, site not specified; Z68.1 Body mass index [BMI] 19.9 or less, adult; F17.210 Nicotine dependence, cigarettes, uncomplicated; F15.10 Other stimulant abuse, uncomplicated; F12.10 Cannabis abuse, uncomplicated; E83.42 Hypomagnesemia; M54.9 Dorsalgia, unspecified; G89.29 Other chronic pain; B19.20 Unspecified viral hepatitis C without hepatic coma; G40.909 Epilepsy, unspecified, not intractable, without status epilepticus; M06.9 Rheumatoid arthritis, unspecified; Z90.49 Acquired absence of other specified parts of digestive tract; Z60.2 Problems related to living alone; Z98.890 Other specified postprocedural states; Z88.8 Allergy status to other drugs, medicaments and biological substances; Z79.2 Long term (current) use of antibiotics; Z79.51 Long term (current) use of inhaled steroids; Z79.899 Other long term (current) drug therapy; Z11.52 Encounter for screening for COVID-19
CPT/HCPCS: 36415; 36600; 51798; 71045; 80053; 80307; 81001; 82803; 83605; 83735; 84100; 85025; 87040; 87077; 87088; 87186; 87502; 93005; 93010; 94640; 94644; 94660; 96365; 96375; 97161; 97165; 99285-25; A9270; C9803; G0480; J0456; J0696; J1650; J2310; J2920; J2930; J3475; J7030; J7040; J7060; J7121; Q0177; U0002

== ENCOUNTER 2023-02-28 14:13 | Emergency (ER) | payer MEDICARE, OTHER ==
[~2023-02-28] VITALS: Ht 162.6 cm; Wt 41.3 kg
[~2023-02-28 14:13] MED LIST changes: +ALBUTEROL2.5 MG/3 M INH; +BENZONATATE100 MG PO; +CEFPODOXIME PR200 MG PO; +HYDROCODON-ACE1 EA10 PO; +LIDODERM1 EACH TD
--- OUTSIDE RECORDS SUMMARY | 2023-02-28 15:04 | XMS ---
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 E.D. VISIT COUNT (12 MO.) 8 TARI Fernando TOTAL 8 NOTE: Visits indicate total known visits. ED/UCC VISIT TRACKING (12 MO.) 2023 14:14 [facility] [place] TYPE: Emergency COMPLAINT: - SHORTNESS OF BREATH 02/21/2023 17:16 [facility] [place] TYPE: Emergency COMPLAINT: - SHORTNESS OF BREATH DIAGNOSES: - Allergy status to other drugs, medicaments and biological substances - Emphysema, unspecified - Exposure to other specified factors, initial encounter - Fracture of one rib, right side, initial encounter for closed fracture - Nicotine dependence, unspecified, uncomplicated - Other watermaster (current) drug therapy - Shortness of breath 02/08/2023 20:38 [facility] [place] TYPE: Emergency COMPLAINT: - SOB DIAGNOSES: - Allergy status to other drugs, medicaments and biological substances - Chronic obstructive pulmonary disease with (acute) exacerbation - Encounter for screening for COVID-19 - Epilepsy, unspecified, not intractable, without status epilepticus - Nicotine dependence, unspecified, uncomplicated - Other watermaster (current) drug therapy - Rheumatoid arthritis, unspecified - Shortness of breath 01/06/2023 13:54 [facility] [place] TYPE: Emergency COMPLAINT: - DIFFICULTY BREATHING 10/05/2022 21:39 [facility] [place] TYPE: Emergency COMPLAINT: - SHOB DIAGNOSES: - Allergy status to other drugs, medicaments and biological substances - Chronic obstructive pulmonary disease with (acute) exacerbation - Contact with and (suspected) exposure to COVID-19 - Epilepsy, unspecified, not intractable, without status epilepticus - Nicotine dependence, unspecified, uncomplicated - Other watermaster (current) drug therapy - Shortness of breath 08/25/2022 17:28 [facility] [place] TYPE: Emergency COMPLAINT: - DIFFICULTY BREATHING 08/08/2022 18:29 [facility] [place] TYPE: Emergency COMPLAINT: - SOB DIAGNOSES: - Allergy status to other drugs, medicaments and biological substances - Chronic obstructive pulmonary disease with (acute) exacerbation - Dependence on supplemental oxygen - Nicotine dependence, unspecified, uncomplicated - Other halfway (current) drug therapy - Shortness of breath 04/04/2022 14:14 [facility] [place] TYPE: Emergency COMPLAINT: - MULT COMPLAINTS INPATIENT VISIT TRACKING (12 MO.) 01/06/2023 16:[address] [facility] [place] TYPE: Critical Care COMPLAINT: - ACUTE HYPOXIC RESPIRATORY FAILURE DIAGNOSES: - Acquired absence of other specified parts of digestive tract - Acquired absence of other specified parts of digestive tract - Acute and chronic respiratory failure with hypoxia - Acute and chronic respiratory failure with hypoxia - Acute respiratory failure with hypoxia - Allergy status to other drugs, medicaments and biological substances - Allergy status to other drugs, medicaments and biological substances - Body mass index [BMI] 19.9 or less, adult - Body mass index [BMI] 19.9 or less, adult - Cannabis abuse, uncomplicated - Cannabis abuse, uncomplicated - Chronic obstructive pulmonary disease with (acute) exacerbation - Chronic obstructive pulmonary disease with (acute) exacerbation - Dorsalgia, unspecified - Dorsalgia, unspecified - Encounter for screening for COVID-19 - Encounter for screening for COVID-19 - Epilepsy, unspecified, not intractable, without status epilepticus - Epilepsy, unspecified, not intractable, without status epilepticus - Hypomagnesemia - Hypomagnesemia - long-term (current) use of antibiotics - termination clerk (current) use of antibiotics - termination clerk (current) use of inhaled steroids - termination clerk (current) use of inhaled steroids - Nicotine dependence, cigarettes, uncomplicated - Nicotine dependence, cigarettes, uncomplicated - Other chronic pain - Other chronic pain - Other watermaster (current) drug therapy - Other watermaster (current) drug therapy - Other specified postprocedural states - Other specified postprocedural states - Other stimulant abuse, uncomplicated - Other stimulant abuse, uncomplicated - Problems related to living alone - Problems related to living alone - Rheumatoid arthritis, unspecified - Rheumatoid arthritis, unspecified - Sepsis, unspecified organism - Sepsis, unspecified organism - Unspecified severe protein-calorie malnutrition - Unspecified severe protein-calorie malnutrition - Unspecified viral hepatitis C without hepatic coma - Unspecified viral hepatitis C without hepatic coma - Urinary tract infection, site not specified - Urinary tract infection, site not specified 08/25/2022 17:29 [facility] [place] TYPE: Observation COMPLAINT: - ACUTE HYPOXIC RESPIRATORY FAILURE COPD EXACERBATIO DIAGNOSES: - Acute and chronic respiratory failure with hypoxia - Allergy status to other drugs, medicaments and biological substances - Chronic obstructive pulmonary disease with (acute) exacerbation - Contact with and (suspected) exposure to COVID-19 - Elevated white blood cell count, unspecified - Other watermaster (current) drug therapy 04/04/2022 17:44 [facility] [place] TYPE: Medical [...] - Nicotine dependence, cigarettes, uncomplicated - Other watermaster (current) drug therapy - Other halfway (current) drug therapy - Other specified postprocedural states - Other specified postprocedural states - Personal history of other infectious and parasitic diseases - Personal history of other infectious and parasitic diseases - Pneumonia, unspecified organism - Rheumatoid arthritis, unspecified - Rheumatoid arthritis, unspecified - Tubal ligation status - Tubal ligation status [email or web address]
[2023-02-28 15:08] LABS: BASOPHILS 0.5 % (0-2); EOSINOPHILS 1.3 % (0-6); HEMATOCRIT 39.5 % (35.0-50.0); HEMOGLOBIN 12.9 g/dL (12.0-18.0); MCH 31.1 (27-36); MCHC 32.6 g/dl (30-36); MCV 95.4 fl (81-99); MONOCYTES 5.7 % (0-12); NEUTROPHILS 82.5 % (39-80); PLATELET COUNT 263 K/uL (140-440); RBC 4.14 M/ul (4.3-5.7); RDW 13.7 (10.5-15.0)
[2023-02-28 15:23] LABS: ALBUMIN 3.4 g/dL (3.4-5.0); ALBUMIN/GLOBULIN RATIO 0.94 (1.1-2.4); ANION GAP 5.7 (7-21); BILIRUBIN, TOTAL 0.4 ng/dL (0.2-1.0); BUN/CREATININE RATIO 26.15 (6.0-28.6); CALCIUM 9.4 mg/dL (8.5-10.1); CREATININE, SERUM 0.65 mg/dL (0.55-1.02); MAGNESIUM 1.8 mg/dL (1.8-2.4); POTASSIUM 3.7 mmol/L (3.5-5.1)
[2023-02-28] MEDS ORDERED: PREDNISONE20 MG PO (16:30)
[2023-02-28] MEDS ORDERED: IPRAT-ALBUT 0.5-3 ML INH (16:30)
[2023-02-28 17:12] VITALS: BP 126/75
--- NOTE | 2023-03-01 21:14 | EKG ---
[facility] [address] [facility] [place] [address] Signed Normal sinus rhythm Right atrial enlargement Borderline ECG When compared with ECG of 21-FEB-2023 17:52, No significant change was found Confirmed by LINN RAMIREZ MD ([id number]) on 03/01/2023 9:14:27 PM Electronically Signed By: LINN RAMIREZ 03/01/232113 PATIENT NAME: VON SÁNCHEZ PARIS Electrocardiogram DATE OF : 58 PHYSICIAN: LINN RAMIREZ REPORT #: [id number] REPORT IS CONFIDENTIAL AND NOT TO BE RELEASED WITHOUT AUTHORIZATION
== END 2023-02-28 16:55 | disposition home or self-care (01) ==
LOC: ED 14:13
PROVIDERS: Emergency Medicine
DX: J44.1 Chronic obstructive pulmonary disease with (acute) exacerbation (principal); F17.200 Nicotine dependence, unspecified, uncomplicated; Z88.8 Allergy status to other drugs, medicaments and biological substances; Z79.52 Long term (current) use of systemic steroids; Z79.899 Other long term (current) drug therapy
CPT/HCPCS: 36415; 71045; 80053; 83735; 84484; 85025; 93005; 93010; 94640; 99285-25

== ENCOUNTER 2023-09-09 02:23 | Inpatient (IN) | payer MEDICARE, OTHER ==
[2023-09-09] VITALS (26 sets, daily range): BP systolic 85–131; BP diastolic 55–94
[~2023-09-09] VITALS: Ht 162.6 cm; Wt 45.2 kg
[~2023-09-09 02:23] MED LIST changes: +HYDROCODON-ACE1 EA11 PO; +LOPERAMIDE2 M1 PO; +PEPTO-BISM262 MG/15 PO; +PEPTO-BISM525 MG/15 PO; +PERFOROMIS20 MCG/2 M INH
--- OUTSIDE RECORDS SUMMARY | 2023-09-09 02:24 | XMS ---
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 Ana Cristina VISIT COUNT (12 MO.) 10 TARI Fernando TOTAL 10 NOTE: Visits indicate total known visits. ED/UCC VISIT TRACKING (12 MO.) 09/09/2023 02:23 [facility] [place] TYPE: Emergency COMPLAINT: - SOB 06/16/2023 00:13 [facility] [place] [facility] [place] TYPE: Emergency COMPLAINT: - FALL 05/17/2023 20:11 [facility] [place] [facility] [place] TYPE: Emergency COMPLAINT: - SHORTNESS OF BREATH 05/02/2023 19:11 [facility] [place] [facility] TYPE: Emergency COMPLAINT: - CHEST PAIN DIAGNOSES: - Allergy status to other drugs, medicaments and biological substances - Chronic obstructive pulmonary disease, unspecified - Epilepsy, unspecified, not intractable, without status epilepticus - Nicotine dependence, unspecified, uncomplicated - Other termite exterminator (current) drug therapy - Rheumatoid arthritis, unspecified - Shortness of breath 04/20/2023 10:54 [facility] [place] TYPE: Emergency COMPLAINT: - R FOOT INJURY DIAGNOSES: - Allergy status to other drugs, medicaments and biological substances - Chronic obstructive pulmonary disease, unspecified - Contusion of right foot, initial encounter - Dependence on supplemental oxygen - Epilepsy, unspecified, not intractable, without status epilepticus - manager long term care (current) use of inhaled steroids - Nicotine dependence, unspecified, uncomplicated - Other chronic pain - Other termite exterminator (current) drug therapy - Overexertion from prolonged static or awkward postures, initial encounter - Rheumatoid arthritis, unspecified - Unspecified sprain of right foot, initial encounter 2023 14:14 [facility] [place] TYPE: Emergency COMPLAINT: - SHORTNESS OF BREATH DIAGNOSES: - Allergy status to other drugs, medicaments and biological substances - Chronic obstructive pulmonary disease with (acute) exacerbation - long-term (current) use of systemic steroids - Nicotine dependence, unspecified, uncomplicated - Other intermediate (current) drug therapy - Shortness of breath 02/21/2023 17:16 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 - Shortness of breath 02/08/2023 20:38 [facility] [place] TYPE: Emergency COMPLAINT: - SOB DIAGNOSES: - Allergy status to other drugs, medicaments and biological substances - Chronic obstructive pulmonary disease with (acute) exacerbation - Encounter for screening for COVID-19 - Epilepsy, unspecified, not intractable, without status epilepticus - Nicotine dependence, unspecified, uncomplicated - Other termite exterminator (current) drug therapy - Rheumatoid arthritis, unspecified [...] - Nicotine dependence, unspecified, uncomplicated - Other termite exterminator (current) drug therapy - Shortness of breath INPATIENT VISIT TRACKING (12 MO.) 06/16/2023 00:14 [facility] [place] TYPE: Observation COMPLAINT: - STERNAL FRACTURE WITH RETROSTERNAL CONTUSION DIAGNOSES: - Allergy status to other drugs, medicaments and biological substances - Cervicalgia - Chronic obstructive pulmonary disease, unspecified - Dependence on supplemental oxygen - Epilepsy, unspecified, not intractable, without status epilepticus - Fall from bed, initial encounter - Fracture of body of sternum, initial encounter for closed fracture - Headache, unspecified - Nicotine dependence, unspecified, uncomplicated - Other chest pain - Other intermediate (current) drug therapy 05/17/2023 20:12 [facility] [place] TYPE: Observation COMPLAINT: - COPD EXACERBATION DIAGNOSES: - Acute and chronic respiratory failure with hypoxia - Allergy status to other drugs, medicaments and biological substances - Chronic obstructive pulmonary disease with (acute) exacerbation - Dependence on supplemental oxygen - Nicotine dependence, cigarettes, uncomplicated - Other intermediate (current) drug therapy 01/06/2023 16:51 [facility] [place] TYPE: Critical Care [...] - long-term (current) use of antibiotics - manager long term care (current) use of antibiotics - manager long term care (current) use of inhaled steroids - manager long term care (current) use of inhaled steroids - Nicotine dependence, cigarettes, uncomplicated - Nicotine dependence, cigarettes, uncomplicated - Other chronic pain - Other chronic pain - Other intermediate (current) drug therapy - Other termite exterminator (current) drug therapy - Other specified postprocedural [...] - Urinary tract infection, site not specified [email or web address]
[2023-09-09] MEDS ORDERED: methylPREDNISolone SOD SUCC 125 MG/2 ML VIAL IV ONE (02:30)
[2023-09-09] MEDS ORDERED: ALBUTEROL/IPRATROPIUM 3 ML NEB INH ONE ×2 (02:30→02:45)
[2023-09-09 02:40] LABS: HEMATOCRIT 38.7 % (35.0-50.0); HEMOGLOBIN 12.1 g/dL (12.0-18.0); MCHC 31.2 g/dl (30-36); MCV 96.3 fl (81-99); PH, VENOUS 7.292 (7.31-7.41); PLATELET COUNT 161 K/uL (140-440); RBC 4.02 M/ul (4.3-5.7); RDW 13.6 (10.5-15.0)
[2023-09-09 02:53] LABS: BANDS, MANUAL DIFF 32; LYMPHOCYTES, MANUAL DIFF 2; MONOCYTES, MANUAL DIFF 15; NEUTROPHILS, MANUAL DIFF 51
[2023-09-09 03:03] LABS: ALBUMIN 3.1 g/dL (3.4-5.0); ALBUMIN/GLOBULIN RATIO 0.66 (1.1-2.4); ANION GAP 7.4 (7-21); BILIRUBIN, TOTAL 0.4 ng/dL (0.2-1.0); BUN/CREATININE RATIO 29.54 (6.0-28.6); CALCIUM 9.6 mg/dL (8.5-10.1); CREATININE, SERUM 0.88 mg/dL (0.55-1.02); POTASSIUM 4.4 mmol/L (3.5-5.1); PROTEIN, TOTAL 7.8 g/dL (6.4-8.2)
[2023-09-09] MEDS ORDERED: FUROSEMIDE 20 MG/2 ML VIAL IV ONE (03:45)
[2023-09-09 03:57] LABS: PH, VENOUS 7.269 (7.31-7.41)
[2023-09-09] MEDS ORDERED: ALBUTEROL SULFATE 0.5% 2.5 MG/0.5 ML VIAL INH ONE ×2 (04:15→09:45)
[2023-09-09 04:49] LABS: INFLUENZA B NAA NEGATIVE (NEGATIVE); RESPIRATORY SYNCYTIAL VIR NAA NEGATIVE (NEGATIVE)
[2023-09-09 05:11] LABS: BILIRUBIN, URINE NEGATIVE (negative); BLOOD/HGB, URINE SMALL (Negative); KETONE, URINE NEGATIVE (Negative); LEUK ESTERASE, URINE NEGATIVE (negative); NITRITE, URINE NEGATIVE (negative)
[2023-09-09 05:14] LABS: PH, VENOUS 7.272 (7.31-7.41)
[2023-09-09 05:17] LABS: EPITHELIAL CELLS, URINE SQUAMOUS 1+ /lpf (0-1+)
[2023-09-09 05:21] LABS: BACTERIA, URINE 1+ /hpf (negative); COLLECTION TYPE, URINE CLEAN CATCH; CRYSTALS, URINE NONE SEEN (0-1+); REFLEX CULTURE, URINE No (No); WHITE BLOOD CELLS, URINE 0-1 /HPF (0-5)
[2023-09-09 05:22] LABS: CASTS, URINE GRANULAR 1+ \\lpf
[2023-09-09 05:27] LABS: AMPHETAMINES, URINE NEGATIVE (NEGATIVE); BARBITURATES, URINE NEGATIVE (NEGATIVE); BENZODIAZEPINE, URINE NEGATIVE (NEGATIVE); BUPRENORPHINE, URINE NEGATIVE (NEGATIVE); CANNABINOID, URINE POSITIVE (NEGATIVE); COCAINE, URINE NEGATIVE (NEGATIVE); ECSTASY, URINE NEGATIVE (NEGATIVE); FENTANYL, URINE NEGATIVE (NEGATIVE); METHADONE, URINE NEGATIVE (NEGATIVE); OPIATES, URINE NEGATIVE (NEGATIVE); OXYCODONE, URINE NEGATIVE (NEGATIVE); PHENCYCLIDINE, URINE NEGATIVE (NEGATIVE)
[2023-09-09] MEDS ORDERED: ETOMIDATE 40 MG/20 ML VIAL IV ONE (05:30)
[2023-09-09] MEDS ORDERED: ROCURONIUM BROMIDE 50 MG/5 ML VIAL IV ONE (05:30)
[2023-09-09] MEDS ORDERED: propofoL 100 ML IV SCH (06:00)
[2023-09-09] MEDS ORDERED: CEFTRIAXONE/SODIUM CHLORIDE 1 GM/100 ML PIGGYBACK IV ONE ×2 (06:45→11:45)
[2023-09-09] MEDS ORDERED: SODIUM CHLORIDE 0.9% 1,000 ML IV SCH ×2 (06:45→07:45)
[2023-09-09 07:05] LABS: PH, VENOUS 7.337 (7.31-7.41)
[2023-09-09] MEDS ORDERED: propofoL 200 MG/20 ML VIAL IV ONE (07:30)
[2023-09-09] MEDS ORDERED: fentaNYL citrate 100 MCG/2 ML VIAL ONE (07:37)
[2023-09-09] MEDS ORDERED: ondansetron HCL 4 MG/2 ML VIAL IV PRN (07:45)
[2023-09-09] MEDS ORDERED: FENTANYL CITRATE-0.9 % NACL/PF 100 ML IV SCH (07:45)
[2023-09-09] MEDS ORDERED: fentaNYL citrate 100 MCG/2 ML VIAL IV ONE ×3 (07:45→10:15)
[2023-09-09] MEDS ORDERED: SODIUM CHLORIDE 0.9% 500 ML IV PRN (08:00)
[2023-09-09] MEDS ORDERED: MIDAZOLAM HCL 100 MG in DEXTROSE 5% 80 ML IV SCH (08:00)
[2023-09-09] MEDS ORDERED: NOREPINEPHRINE BITARTRATE 250 ML IV SCH (08:00)
[2023-09-09] MEDS ORDERED: FENTANYL CITRATE-0.9 % NACL/PF 1,000 MCG/100 ML BAG IV SCH (08:00)
--- NOTE | 2023-09-09 08:59 | NUR ---
RESPONDED TO RAPID RESPONE PAGE. PROVIDED SUPPORTIVE PRESENCE, PRAYER.
[2023-09-09] MEDS ORDERED: ENOXAPARIN SODIUM 40 MG/0.4 ML SYR SUB-Q SCH (09:00)
--- NOTE | 2023-09-09 09:00 | NUR ---
PT ARRIVES TO UNIT VIA STRETCHER WITH RT AND ED RN. PT STABLE ON VENTILATOR UPON ARRIVAL. PT SWITCHED TO IN ROOM VENT PRIOR TO TRANSFER TO NEW BED, LOW VT ALARMS IMMEDIATLY STARTED. TROUBLESHOOTING BY RT UNABLE TO RESOLVE LOW VENTILATION ALARMS. NOTICIBLE CYANOTIC CHANGES IN FACE AND INCREASE IN ETC02, MINIMAL CHEST RISE. BEGAN BAGGING PT WITH HIGH RESISTANCE AND LITTLE CHEST RISE. RAPID RESPONSE CALLED. DEEP SUCTION INITIATED WITH LAVAGE FOLLOWED BY A DUONEB WITH IMPROVED VENTILATIONS. SEDATION TITRATION ALSO INCREASED AT THIS TIME. MD AND RAPID RESPONSE TEAM AT BEDSIDE. ST ELEVATION CHANGES NOTED IN LEADS ON MONITOR - DIFFERENT THAN PREVIOUS EKG. NEW EKG OBTAINED AND TROPONINS DRAWN.
[2023-09-09] MEDS ORDERED: ALBUTEROL/IPRATROPIUM 3 ML NEB ONE (09:02)
--- NOTE | 2023-09-09 09:20 | NUR ---
TRANSFERRED TO THE UNIT , LA DECOMPENSATED WHEN SWITCHED OVER TO VENTILATOR AT BEDSIDE , PT WAS BAGGED AND SUCTIONED , AND AN INLINE INITIAL AND HOUR LONG WAS STARTED . PT IMPROVED AND WAS SWITCHED TO VENT . PT HAS COUPIOS SECRETIONS AND VERY TIGHT LUNGS , ENDTIDAL 45-50S, . EET WAS ALITTLE HIGH ADVANCED EET TO 24.4 AT THE [facility] SECURE WITH BITEBLOCK INPLACE , GOOD BILATE BS , XRAY CONFIRMED EET , NO FUTHER CHANGES AT THIS TIME . WILL CONTINUE TO MONITOR AND DO TREATMENT AROUND THE CLOCK INLINE AEROGEN EVERY 4 HOURS AND PRN NEEDED
[2023-09-09] MEDS ORDERED: ALBUTEROL SULFATE 0.5% 2.5 MG/0.5 ML VIAL ONE (09:48)
--- NOTE | 2023-09-09 10:00 | NUR ---
PT STABALIZED AND APPEARS COMFORTABLE ON CURRENT TITRATION SETTINGS, SEE FLOWSHEET. LOW VT ALARM CONTINUES. ET TUBE ADVANCED BY RT PER MD VERBAL ORDER. NOW 24.5CM AT THE GUMS. CXR OBTAINED, MD READ IN ROOM, NO FURTHER ORDERS RECEIVED. CONTINUOUS NEB STARTED. PT DID REQUIRE IV PUSH OF FENTANYL FOR INCREASED AGGITATION AFTER THIS, FLACC SCORE 8. CABAN PATENT WITH CLEAR YELLOW URINE, QS FOR LAST HOUR MEASURED. OG TO LIS DRAINING BILE. RASS -3. UPPER EXTREMITY SOFT RESTRAINTS X 2 - CMS INTACT DISTALLY.
[2023-09-09] MEDS ORDERED: ALBUTEROL SULFATE 0.083% 3 ML VIAL INH ONE (10:45)
--- NOTE | 2023-09-09 10:50 | EKG ---
[facility] [address] [facility] [place] [address] Signed Normal sinus rhythm Right atrial enlargement Borderline ECG When compared with ECG of 28-FEB-2023 14:58, Nonspecific T wave abnormality no longer evident in Anterior leads Confirmed by Nell Blanco MD () on 09/09/2023 10:50:08 AM Electronically Signed By: NELL BLANCO MD 09/09/23 1050 PATIENT NAME: VON SÁNCHEZ PARIS Electrocardiogram DATE OF : 58 PHYSICIAN: NELL BLANCO MD REPORT #: [id number] REPORT IS CONFIDENTIAL AND NOT TO BE RELEASED WITHOUT AUTHORIZATION
--- NOTE | 2023-09-09 11:14 | NUR ---
Called daughters to update them on patient condition. Spoke with both her daughters, updating them on patient condition. State they will likely be to facility to see her today. Patient resides at [facility] and plan to return at [place]. Will complete assessment with daughter when they arrive.
--- NOTE | 2023-09-09 11:30 | NUR ---
LAB IN ROOM TO DRAW BLOOD CULTURES. LOW VT ALARM ON MONITOR INTERMITANTLY, ET TUBE SUCTION PRODUCING WHITE THICK SECREATIONS. PT TOLERATED WITH SOME COUGHING BUT QUIETED QUICKLY. ORAL CARE COMPLETE WITH DEBRIEDMENT AND MOISTURIZER. UPPER EXTREMITY SOFT RESTRAINTS IN PLACE X 2 - CMS INTACT. RASS -2, SEE FLOWSHEET FOR MEDICATION TITRATION.
[2023-09-09] MEDS ORDERED: AZITHROMYCIN 500 MG in DEXTROSE 5% 250 ML IV SCH (11:42)
[2023-09-09] MEDS ORDERED: ALBUTEROL/IPRATROPIUM 3 ML NEB INH SCH (12:00)
[2023-09-09] MEDS ORDERED: PHARMACY RENAL DOSE ADJUSTMENT 1 DOSE MISC PO SCH (12:00)
--- NOTE | 2023-09-09 12:00 | NUR ---
REPEAT ABG DRAWN. RASS -2, NO S/S OF PAIN. SEE FLOWSHEET FOR PROPOFOL TITRATION DOWN.
[2023-09-09 12:35] LABS: BASE EXCESS, BLOOD GAS 6.3 mmol/L (-2-2); HCO3, BLOOD GAS 30.4 mmol/L (22-26); O2 SATURATION, BLOOD GAS 98.4 % (95.0-100.0); OXYGEN RECEIVED, BLOOD GAS 30%; PCO2, BLOOD GAS 42.4 mmHg (35-45); PH, BLOOD GAS 7.47 (7.35-7.45); PO2, BLOOD GAS 79 mmHg (80-100); TOTAL CO2, BLOOD GAS 31.7
--- NOTE | 2023-09-09 12:40 | NUR ---
UPDATED ON ABG AND LACTIC RESULTS. RR SETTINGS ON VENT DECREASED TO 20 TO PREVENT FURTHER CORRECTION OF C02. PT COMPLIANCE ON VENT IS IMPROVING. IMPROVED COLOR AND OVERALL APPEARENCE IN BED. SECREATIONS CONTINUE TO BE THICK WHITE/YELLOW WITH DEEP SUCTION. SEE CCU BUNDLE, MEDICATION FLOWSHEET AND VS CHARTING.
[2023-09-09] MEDS ORDERED: SPIRIVA18 MCG INH (12:41)
[2023-09-09] MEDS ORDERED: HYDROXYZINE HCL50 MG PO (12:44)
--- NOTE | 2023-09-09 12:48 | NUR ---
MED REC COMPLETE
--- NOTE | 2023-09-09 14:00 | NUR ---
PT CONTINUES TO LOOK MUCH IMPROVED ON VISUAL ASSESSMENT ON MONITOR AND IN ROOM. IMPROVED AIR MOVEMENT THROUGH LUNGS, ETC02 AT GOAL RANGE FOR THIS PT, NO S/S OF PAIN OR AGGITATION, BP STABLE WITH CURRENT TITRATIONS AND CONTINUING TO BE ABLE TO WEAN DOWN FROM SEDATION AND VASOPRESSOR. HOURLY CARE BUNDLES FOR INTUBATED PATIENTS COMPLETE.
--- NOTE | 2023-09-09 15:00 | NUR ---
CHANGE IN HOSPITALIST ROTATION, DR. RAMIREZ AT BEDSIDE. UPDATED POC REVIEWED. SECREATIONS REMAIN THICK AND YELLOW, MUCOMYST 1 TIME ORDER RECEIVED. RR SETTING ON VENT DECREASED TO 18, FI02 NOW 28%, PEEP REMAINS AT 5. BP STABLE, NOREPI TITRATED DOWN.
--- NOTE | 2023-09-09 15:08 | EKG ---
[facility] [address] [facility] [place] [address] Signed Unusual P axis, possible ectopic atrial rhythm ST elevation, probably due to early repolarization Abnormal ECG When compared with ECG of 09-SEP-2023 02:54, Ectopic atrial rhythm has replaced Sinus rhythm ST elevation now present in Inferior leads Confirmed by Nell Blanco MD () on 09/09/2023 3:08:43 PM Electronically Signed By: NELL BLANCO MD 09/09/23 1508 PATIENT NAME: VON SÁNCHEZ PARIS Electrocardiogram DATE OF : 58 PHYSICIAN: NELL BLANCO MD REPORT #: [id number] REPORT IS CONFIDENTIAL AND NOT TO BE RELEASED WITHOUT AUTHORIZATION
--- NOTE | 2023-09-09 15:28 | NUR ---
REDECREASED RATE TO 18 BPM, FIO2 TO 28%, PLAN PER DOCTOR RAMIREZ IS TO DO SEDATION VACATION TOMMORROW . WILL CONTINUE TO MONITOR THE PATIENT READINESS TO WEAN
[2023-09-09] MEDS ORDERED: Acetylcysteine 800 MG/4 ML VIAL INH ONE (15:30)
--- NOTE | 2023-09-09 16:00 | NUR ---
LACTIC REDRAWN - DECREASED TO 3.0. NOREPI CONTINUES TO BE TITRATED DOWN APPROPRIATE WITH BP. PT REAMIANS APPEARING COMFORTABLE, OCCASIONAL SPONTANEOUS MOVEMENTS BUT DOES NOT FOLLOW VERBAL COMMANDS. URINE OUTPUT INCREASED THIS HOUR. INTUBATION BUNDLE CARES COMPLETE.
--- NOTE | 2023-09-09 17:00 | NUR ---
NO CHANGES IN PT CONDITION ON POC. INTUBATED BUNDLE CARES COMPLETE. SEE FLOWSHEETS.
--- NOTE | 2023-09-09 18:00 | NUR ---
PT STABLE ON VENT SETTINGS AND APPEARS COMFORTABLE WITH REPOSISTIONING AND CARES. CONTINUES TO MAKE WEIGHT BASED QS URINE PER HOUR. MAP'S CONSISTENTLY GREATER THAN 65, NOREPI AND PROPOFOL TITRATING DOWN.
[2023-09-09] MEDS ORDERED: BUDESONIDE 0.5 MG/2 ML VIAL INH SCH (20:00)
--- NOTE | 2023-09-09 20:00 | NUR ---
PATIENT IN BED; SEDATED; INTUBATED; VITAL SIGNS STABLE; NO SIGNS OF DISTRESS OR DISCOMFORT NOTED; RASS -2; NURSE CHECKED VENT SETTINGS; ORAL CARE GIVEN; NURSE COMPLETED ASSESSMENT AND PROVIDED CARES FOR PATIENT; NURSE REPOSITIONED PATIENT; CALL LIGHT WITHIN REACH.
[2023-09-09] MEDS ORDERED: FAMOTIDINE 20 MG/ 2 ML VIAL IV SCH (21:00)
[2023-09-10] VITALS (30 sets, daily range): BP systolic 97–147; BP diastolic 52–87
--- NOTE | 2023-09-10 | NUR ---
NURSE PROVIDED CARES FOR PATIENT; BED BATH & CABAN CATH CARE GIVEN; NURSE REPOSITIONED PATIENT; PATIENT SEDATED; RASS -2; NO SIGNS OF DISTRESS OR DISCOMFORT NOTED; VENT SETTINGS REMAINS THE SAME; PATIENT TOLERATING VENT; PASSIVE RANGE OF MOTION PROVIDED FOR PATIENT; CALL LIGHT WITHIN REACH.
--- NOTE | 2023-09-10 04:00 | NUR ---
PATIENT SEDATED & INTUBATED; REPOSITIONED PATIENT; VITAL SIGNS STABLE; NURSE CONTINUES TO WEAN OFF VERSED TO PREPARE PATIENT FOR SBT. ORAL CARE DONE. PATIENT TOLERATING VENTILATOR. OXYGEN SATURATION 95 TO 98%. COUGH & GAG PRESENT. NO SIGNS OF OF DISTRESS OR DISCOMFORT NOTED. NURSE PROVIDED PATIAENT WITH PASSIVE RANGE OF MOTION. CALL LIGHT WITHIN REACH. HEAD OF BED 30 DEGREES. PATIENT RESTING COMFORTABLY IN BED.
[2023-09-10 05:21] LABS: HEMATOCRIT 28.9 % (35.0-50.0); HEMOGLOBIN 9.2 g/dL (12.0-18.0); MCH 29.9 (27-36); MCHC 31.9 g/dl (30-36); MCV 93.8 fl (81-99); PLATELET COUNT 156 K/uL (140-440); RBC 3.08 M/ul (4.3-5.7); RDW 13.5 (10.5-15.0)
--- NOTE | 2023-09-10 05:31 | NUR ---
PT IS CONTINUE ON SAME VENT SETTINGS AC/VC 420,18 RR,5 PEEP,28% FIO2,ET IS SECURED AT 24 CM AT GUMS, ORAL CARE DONE.
[2023-09-10 05:36] LABS: ALBUMIN 2.1 g/dL (3.4-5.0); ALBUMIN/GLOBULIN RATIO 0.62 (1.1-2.4); ANION GAP 6.9 (7-21); BANDS, MANUAL DIFF 42; BILIRUBIN, TOTAL 0.2 ng/dL (0.2-1.0); BUN/CREATININE RATIO 33.76 (6.0-28.6); CALCIUM 8.6 mg/dL (8.5-10.1); CREATININE, SERUM 0.77 mg/dL (0.55-1.02); LYMPHOCYTES, MANUAL DIFF 6; MAGNESIUM 1.6 mg/dL (1.8-2.4); MONOCYTES, MANUAL DIFF 3; NEUTROPHILS, MANUAL DIFF 49; POTASSIUM 2.9 mmol/L (3.5-5.1); PROTEIN, TOTAL 5.5 g/dL (6.4-8.2)
[2023-09-10] MEDS ORDERED: MAGNESIUM SULFATE 2 GM/50 ML BAG IV ONE (07:00)
--- NOTE | 2023-09-10 07:45 | NUR ---
PT COUGHING WITH BRONCHIAL SPASMS AND EXCESS SECREATIONS IN TUBE AND ORALLY. DEEP SUCTIONING AND ORAL SUCTIONING COMPLETE BY THIS RN AND RT. SECREATIONS THICK WHITE/YELLOW. RASS +1 AT THIS TIME, PURPOSEFUL MOVEMENT IN ALL EXTREMETIES ATTEMPTING CHALLENGING RESTRAINTS. PRECEDEX GTT STARTED AND PROPOFOL INCREASED FOR A SHORT PERIOD TO INCREASE PT COMPLIANCE WITH VENTILATOR.
--- NOTE | 2023-09-10 07:59 | NUR ---
BEDSIDE ROUNDING FOR SHIFT OUTPATIENT FACILITY PHYSICAL THERAPIST, NO CHANGES OVERNIGHT EET IS SECURE 7.5 24.5@ GUM. ORAL CARE GIVEN , EET MOVED TO MIDDLE OF THE MOUTH , SUCTIONED FAIR AMOUNT OF THINNER SECRETIONS , MUCOMIST WAS GIVEN LAST NIGHT ONE TIME DOSE SEEMED TO BE HELPFUL. PLAN IS TO DO SEDATION VACATION TO ASSESS ABILITY TO WEAN FROM SUPPORT. WILL CONTINUE TO MONITOR .
--- NOTE | 2023-09-10 08:23 | NUR ---
PT NOW RESTING WITH RASS -3 AFTER PRECEDEX STARTED, WILL BEGIN TITRATING DOWN ON PROPOFOL. VS STABLE. URINE OUTPUT ADEQUATE FOR HOUR. BEDSIDE ROUNDING WITH MD COMPLETE, POC TO PREFORM SAT AND SBT TODAY WITH HOPES OF EXTUBATION. HOURLY VENTILATOR BUNDLE CARES COMPLETE.
[2023-09-10] MEDS ORDERED: methylPREDNISolone SOD SUCC 125 MG/2 ML VIAL IV SCH (09:00)
[2023-09-10] MEDS ORDERED: CEFTRIAXONE/SODIUM CHLORIDE 2 GM/100 ML PIGGYBACK IV SCH (09:00)
--- NOTE | 2023-09-10 09:43 | NUR ---
NO CHANGE IN PT CONDITION. SEE FLOWSHEETS FOR MEDICATION TITRATION. HOURLY VENTILATOR BUNDLE CARES COMPLETE.
[2023-09-10] MEDS ORDERED: POTASSIUM CHLORIDE 10 MEQ/100 ML BAG IV SCH (10:00)
--- NOTE | 2023-09-10 10:22 | NUR ---
VISITED DURING SPIRITUAL CARE ROUNDS. PT UNABLE TO TALK, NO FAMILY PRESENT. PROVIDED SUPPORTIVE PRESENCE, PRAYER.
--- NOTE | 2023-09-10 10:30 | NUR ---
NO CHANGE IN PT STATUS. HOURLY VENTILATION BUNDLE CARES COMPLETED.
--- NOTE | 2023-09-10 11:30 | NUR ---
CONTINUING TO TITRATE OFF SEDATION - SEE FLOWSHEETS. HOURLY INTUBATION CARE BUNDLE COMPLETED. NO CHANGE IN PT STATUS.
[2023-09-10] MEDS ORDERED: Acetylcysteine 800 MG/4 ML VIAL INH SCH (12:00)
[2023-09-10] MEDS ORDERED: POTASSIUM CHLORIDE 40 MEQ,LIDOCAINE HCL 1% 40 MG in DEXTROSE 5% 250 ML IV SCH (12:00)
--- NOTE | 2023-09-10 12:30 | NUR ---
PROPOFOL TITRATED OFF FOR SAT. BED BATH AND CHG WIPE DOWN WITH LINEN CHANGE COMPELTE. CABAN CARE COMPLETE. HOURLY CARES COMPLETE.
--- NOTE | 2023-09-10 14:30 | NUR ---
PT AWAKENING WITH STIMULATION BUT IS NOT OPENING EYES OR FOLLOWING COMMANDS. PRECEDEX NOW OFF FOR SBT.
--- NOTE | 2023-09-10 14:36 | NUR ---
PRECEDEX TITRATED TO 0.2. PT AWAKES EASILY WITH TOUCH HOWEVER NOT OPENING EYES TO COMMAND AT THIS TIME. SPONTANEOUS MOVEMENT IN ALL EXTREMETIES AND CHALLENGING RESTRAINTS. PUPILS PERRLA, SYMETRICAL FACIAL MOVEMENTS. PT PUSHING ET TUBE AND OG WITH TOUNGE. AGGITATION RESOLVES QUICKLY WITH ABSENCE OF STIMULATION. ABG DRAWN. WILL CONTINUE TO PREFORM SEDATION VACATION AND SBT.
[2023-09-10 14:42] LABS: BASE EXCESS, BLOOD GAS 5.2 mmol/L (-2-2); HCO3, BLOOD GAS 30.4 mmol/L (22-26); O2 SATURATION, BLOOD GAS 99.5 % (95.0-100.0); PCO2, BLOOD GAS 46.3 mmHg (35-45); PH, BLOOD GAS 7.43 (7.35-7.45); TOTAL CO2, BLOOD GAS 31.8
--- NOTE | 2023-09-10 15:30 | NUR ---
SAT AND SBT CONTINUES. PT AROUSABLE WITH RASS-1 BUT WITHOUT EYE OPENING. RESPONDS TO VOICE AND TOUCH STIMULI. ALL MOVEMENT SYMETRICAL AND PURPOSEFUL. VS STABLE. MD UPDATED ON PROGRESS.
--- NOTE | 2023-09-10 16:27 | EKG ---
[facility] [address] [facility] [place], [place] [address] Signed Normal sinus rhythm Right atrial enlargement Borderline ECG When compared with ECG of 09-SEP-2023 09:20, (Unconfirmed) Sinus rhythm has replaced Ectopic atrial rhythm Confirmed by LINN RAMIREZ MD ([id number]) on 09/10/2023 4:27:10 PM Electronically Signed By: LINN RAMIREZ 09/10/23 1627 PATIENT NAME: VON SÁNCHEZ PARIS Electrocardiogram DATE OF : 58 PHYSICIAN: LINN RAMIREZ REPORT #: [id number] REPORT IS CONFIDENTIAL AND NOT TO BE RELEASED WITHOUT AUTHORIZATION
--- NOTE | 2023-09-10 16:37 | NUR ---
PT REMAINS OFF PRECEDEX AND IS WITHOUT ANY SEDATION MEDICATION AT THIS TIME. RASS -1. MD EXPRESSESS GOAL TO ACHIEVE A RASS OF 0 THROUGHOUT NIGHT. PT DEMONSTRATING SPONTANEOUS AND PURPOSEFUL MOVEMENT IN ALL EXTREMETIES BUT IS NOT FOLLOWING DIRECTIONS. WILL REMAIN INTUBATED AT THIS TIME. PT ABLE TO REPOSISTION SELF IN BED WITH LIFTING HIPS - SOFT RESTRAINTS REMAIN IN PLACE ON WRISTS FOR LINE AND TUBE SAFETY.
--- NOTE | 2023-09-10 17:11 | NUR ---
NO CHANGE IN PT STATUS. HOURLY BUNDLE CARES COMPLETE.
--- NOTE | 2023-09-10 18:05 | NUR ---
PT REMAINS ON CPAP SETTING ON VENT WITH PRESSURE SUPPORT - TOLERATING WITHOUT DESATURATION. PT RESTLESS IN BED BUT DOES NOT OPEN EYES WHEN ASKED. DOES NOT APPEAR IN PAIN BUT AGGITATED BY TUBE. PRECEDEX STARTED AT 0.2 MCG/KG/HR FOR PT COMFORT SO SHE DOES NOT EXHAUST HER ENERGY FIGHTING RESTRAINTS.
--- NOTE | 2023-09-10 18:17 | NUR ---
PT RR EFFORT AND TIDAL VOLUMES DECREASING - VENT BACK ON FULL SUPPORT. PRECEDEX INCREASED TO 0.4MCG/KG/HR.
--- NOTE | 2023-09-10 20:00 | NUR ---
RECEIVED REPORT; PATIENT RESTLESS; NURSE COMPLETED ASSESSMENT; VITAL SIGNS STABLE; PATIENT UNABLE TO FOLLOW COMMANDS; PATIENT OCCASSIONAL COUGHING; PATIENT TOLERATING VENT. O2 SATURATION ABOVE 93%. NURSE TO TITRATE PRECEDEX TO OBTAIN RASS GOAL;ORAL AND INLINE SUCTIONED PERFORMED; ORAL CARE PERFORMED BY NURSE. PERICARE/CATH CARE PROVIDED; REPOSITIONED PATIENT. CALL LIGHT WITHIN REACH.
[2023-09-10] MEDS ORDERED: propofoL 100 ML IV ONE (23:41)
[2023-09-11] VITALS (24 sets, daily range): BP systolic 116–158; BP diastolic 63–99
--- NOTE | 2023-09-11 | NUR ---
PATIENT MAXED ON PRECEDEX AT 1.5MCG/KG/MIN. PATIENT AGITATED AND RESTLESS. PATIENT NOT TOLERATING VENT. PATIENT COUGHING AND BUCKING VENT. NURSE CALLED DR. RAMIREZ TO REPORT CONDITION OF PATIENT. DR. RAMIREZ GAVE ORDERS TO RESTART PATIENT ON PROPOFAL. NURSE RESTARTED PATIENT ON PROPOFAL PER DR. RAMIREZ'S ORDER. NURSE TO TITRATE PROPOFAL TO MEET RASS GOAL PER DR. RAMIREZ'S ORDER.
--- NOTE | 2023-09-11 04:00 | NUR ---
PATIENT SEDATED ON PROPOFAL AND PRECEDEX ORDERED. PATIENT TOLERATING VENT. VITAL SIGNS STABLE. NO SIGNS OF DISTRESS OR DISCOMFORT NOTED. NURSE PROVIDED CARES FOR PATIENT; REPOSITIONED PATIENT. CALL LIGHT WITHIN REACH
[2023-09-11 04:54] LABS: HEMOGLOBIN 10.4 g/dL (12.0-18.0)
[2023-09-11 04:57] LABS: BASOPHILS 0.1 % (0-2); HEMATOCRIT 32.6 % (35.0-50.0); LYMPHOCYTES 3.6 % (24-44); MCH 29.5 (27-36); MCHC 31.8 g/dl (30-36); MCV 92.9 fl (81-99); MONOCYTES 5.9 % (0-12); NEUTROPHILS 90.4 % (39-80); PLATELET COUNT 176 K/uL (140-440); RBC 3.51 M/ul (4.3-5.7); RDW 13.7 (10.5-15.0)
[2023-09-11 05:03] LABS: ANION GAP 11.7 (7-21); BUN/CREATININE RATIO 38.7 (6.0-28.6); CALCIUM 8.7 mg/dL (8.5-10.1); CREATININE, SERUM 0.62 mg/dL (0.55-1.02); MAGNESIUM 1.9 mg/dL (1.8-2.4); POTASSIUM 3.7 mmol/L (3.5-5.1)
--- NOTE | 2023-09-11 07:59 | NUR ---
IN PATIENT'S ROOM FOR AM ASSESSMENT. RT IN ROOM AT THIS TIME AND PLAN OF CARE DISCUSSED. PT CURRENTLY ON VENT WITH SETTINGS OF VT 420, VC/AC 18, PEEP 5, 30% FI02 AND A 7.0 ETT SECURED AT 24.5 AT THE GUMS. CABAN CATH DRAINING CLEAR YELLOW URINE. LUNG SOUNDS ARE MOSTLY CLEAR ON INSPIRATION WITH SOME EXP WHEEZING HEARD. PT MOVING ALL 4 EXT BUT NOT FOLLOWING COMMANDS AT THIS TIME. PT DOES FURROW HER BROW AND IS SEEN YAWNING FREQUENTLY. PROPOFOL TITRATED DOWN TO 25 MCG/MIN AND WILL CONTINUE TO TITRATE THIS DOWN FOR ANTICIPATION OF WEANING TRIAL THIS AM. IVF AT 125 ML/HR. CENTRAL LINE IN RIGHT SIDE NECK PATENT. IV SITE IN RIGHT WRIST FLUSHING WELL. WRIST RESTRAINTS REMAIN ON BILATERALLY AND CMS INTACT. WILL CONTINUE TO MONITOR CLOSELY.
[2023-09-11] MEDS ORDERED: ALBUTEROL SULFATE 0.5% 2.5 MG/0.5 ML VIAL INH PRN (10:00)
--- NOTE | 2023-09-11 10:37 | NUR ---
PATIENT TAKEN DOWN TO CT AROUND [address] PERFORMED. AWAITING RESULTS NOW. PT STABLE FOR TRANSPORT AND RT, THIS RN AND ONE OTHER RN TOOK PATIENT. NOW BACK IN CCU. VENT SETTINGS HAVE REMAINED UNCHANGED. PROPOFOL NOW AT 15 MCG/MIN AND PRECEDEX AT 1.1 MCG/KG/HR. WORKING ON TITRATING THIS DOWN FOR SPONTANEOUS AWAKENING/BREATHING TRIAL. PT NOTED TO MINIMALLY ATTEMPT TO OPEN EYES A FEW MINUTES AGO. RESTRAINTS REMAIN IN PLACE. WILL CONTINUE TO MONITOR.
[2023-09-11] MEDS ORDERED: POTASSIUM PHOSPHATE 30 MMOL in DEXTROSE 5% 500 ML IV ONE (11:15)
[2023-09-11] MEDS ORDERED: ALBUTEROL SULFATE 0.083% 3 ML VIAL INH PRN (12:45)
--- NOTE | 2023-09-11 13:01 | NUR ---
DURING NOON ASSESSMENT, PATIENT NOTED TO HAVE CLONUS OF 4-5 BEATS PER FOOT WHEN TESTED. PT ALSO SEEMS TO POTENTIALLY HAVE [place]ST[place]MUS WHEN EYES ARE OPENED FOR HER. PT STILL NOT WILLINGLY OPENING HER EYES.PT HAS NO RESPONSE TO DEEP PAIN STIMULI ON NAILBEDS BILATERALLY. PT DOES WITHDRAW AND TENSE UP WHEN LEGS ARE SQUEEZED. PT REMAINS TOLERATING THE VENTILATOR WITH SETTINGS OF VC/AC 18, VT 420, PEEP 5 AND FI02 30%. WHEN SUCTIONING PT'S MOUTH, SHE DID OPEN EYES ONCE, BUT DID NOT SUSTAIN THEM OPEN FOR VERY LONG. PT NOTED TO BE MOVING HER TOES TO WHAT SEEMS PURPOSEFUL TO HER. PT STILL NOW FOLLOWING COMMANDS. PROPOFOL REMAINS AT 5 MCG/KG/MIN AND PRECEDEX AT 0.9 MCG/KG/HR. REPEAT CT SCAN TO BE DONE PER DR. RAMIREZ.
--- NOTE | 2023-09-11 14:49 | NUR ---
PATIENT TAKEN DOWN AROUND [address] SCAN PER MD. PT TOLERATED WELL. PT IS MORE AWAKE NOW, OPENING HER EYES AND SHAKING HER HEAD NO WHEN TRYING TO GIVE PATIENT ORAL CARE. PT DOES MAINTAIN EYE CONTACT FOR A FEW SECONDS, BUT THEN DOES CLOSE EYES AGAIN. PROPFOL NOW OFF OF 1445 AND PRECEDEX DOWN TO 0.7 MCG/KG/HR. WILL CONTINUE WORKING ON WEANING PATIENT OFF OF ALL SEDATION. OG TUBE STILL PUTTING OUT BILE GREEN LIKE FLUID. SP02 IS 99% CURRENTLY ON 30% FI02. ABG TO BE DRAWN PRIOR TO WEANING TRIAL.
[2023-09-11 15:58] LABS: BASE EXCESS, BLOOD GAS 6.1 mmol/L (-2-2); HCO3, BLOOD GAS 29.4 mmol/L (22-26); O2 SATURATION, BLOOD GAS 95.7 % (95.0-100.0); PCO2, BLOOD GAS 38.2 mmHg (35-45); PO2, BLOOD GAS 73 mmHg (80-100); TOTAL CO2, BLOOD GAS 30.5
[2023-09-11 15:59] LABS: OXYGEN RECEIVED, BLOOD GAS 30%
--- NOTE | 2023-09-11 16:01 | NUR ---
DR. RAMIREZ AT BEDSIDE. PROPOFOL REMAINS OFF. PRECEDEX DOWN TO 0.1 MCG/KG/HR. ABG DRAWN AN D RESULTS PENDING. CHEST XRAY DONE. WILL MOVE FORWARD WITH CPAP TRIAL LONG PATIENT'S ABG LOOKS GOOD PER DR. RAMIREZ. PT STILL MORE AWAKE NOW AND OPENS EYES, MAKES EYE CONTACT. PT NOT FOLLOWING COMMANDS BUT IS MAKING PURPOSEFUL MOVEMENTS WITH ARMS/LEGS/HEAD. PT DID OPEN HER MOUTH WHEN I ASKED HER TO IN ORDER TO ORALLY SUCTION. WILL CONTINUE TO MONITOR.
--- NOTE | 2023-09-11 16:12 | NUR ---
RT IN ROOM AND STARTING WEANING TRIAL. PT FOLLWED COMMANDS OF WIGGLING HER TOES WHEN TOLD TO. PT ALSO OPENS EYES TO VOICE.
--- NOTE | 2023-09-11 17:18 | NUR ---
PATIENT EXTUBATED AT 1650 WITH RT, DR. RAMIREZ, THIS RN AND OTHER CCU NURSE IN ROOM. PATIENT TOLERATED FAIR. PT EXTUBATED TO 4 L NC ETC02 MONITORING. PATIENT STILL TACHYPNEIC AND BREATHING ABOUT 25-27. PLACED ON BIPAP AT 1715 WITH SETTINGS OF 15/8 AND 28%. RT NOTIFIED. PT STATES, "I JUST WANT TO BE HAPPY." RR NOW AROUND 23 AND SP02 IS 94%. WILL CONTINUE TO MONITOR CLOSELY.
--- NOTE | 2023-09-11 17:56 | NUR ---
PATIENT REMAINS IN BIPAP AND IS ASKING FOR SOMETHING FOR ANXIETY. DR. RAMIREZ CALLED AND ORDER REC'D THROUGH TELEPHONE ORDER FOR RESUMPTION OF HER NORMAL ANXIETY MED THAT SHE TAKES AT HOME, AND ORDER PLACED IN CHART. PT UPDATED ON THIS. PT DOES SEEM ANXIOUS, NOTED TO BE SHAKING HER FEET ALMOST CONSTANTLY. SP02 IS 94% AND HR 105-106 CURRENTLY.
[2023-09-11] MEDS ORDERED: hydrOXYzine pamoate 50 MG CAP PO PRN (18:00)
[2023-09-11] MEDS ORDERED: hydrOXYzine pamoate 50 MG CAP ONE (18:05)
[2023-09-11 18:48] LABS: BUN/CREATININE RATIO 26.56 (6.0-28.6); CALCIUM 8.7 mg/dL (8.5-10.1); CREATININE, SERUM 0.64 mg/dL (0.55-1.02); MAGNESIUM 1.7 mg/dL (1.8-2.4)
[2023-09-11 18:51] LABS: BASE EXCESS, BLOOD GAS 5.6 mmol/L (-2-2); HCO3, BLOOD GAS 29.8 mmol/L (22-26); O2 SATURATION, BLOOD GAS 96.7 % (95.0-100.0); PCO2, BLOOD GAS 41.5 mmHg (35-45); PH, BLOOD GAS 7.47 (7.35-7.45); PO2, BLOOD GAS 79 mmHg (80-100); TOTAL CO2, BLOOD GAS 31.1
--- NOTE | 2023-09-11 19:09 | NUR ---
PATIENT'S DAUGHTERS CALLED BY [employer] MACHINE YENI PER HER REQUEST. BIPAP SETTINS REMAIN THE SAME OF 15/8 AND 28%. ABG AND LAB RESULTS GONE OVER ON THE PHONE WITH DR. RAMIREZ - 2 GM IV MAG TO BE ORDERED AND AM LABS. PATIENT WILL REMAIN ON BIPAP THROUGH THE NIGHT.
[2023-09-11] MEDS ORDERED: MAGNESIUM SULFATE 2 GM/50 ML BAG IV ONE (19:15)
--- NOTE | 2023-09-11 20:00 | NUR ---
PATIENT SITTING UP IN BED; HOB 45 DEGREES; PATIENT ON BIPAP; PATIENT TOLERATING BIPAP; NURSE PERFOMED ASSESSMENT AND EXPLAINED PLAN OF CARE TO PATIENT; PATIENT NODDED HEAD FOR UNDERSTANDING. PATIENT ABLE TO VERBALIZE AND EXPRESS HER NEEDS. NURSE OFFERED PATIENT WATER TO DRINK. PATIENT DID NOT HAVE ANY DIFFICULTY SWALLOWING WATER. PM CARES PROVIDED FOR PATIENT. PATIENT RECEPTIVE TO CARE PROVIDED. PATIENT DENIES HAVING ANY PAIN AT THIS TIME. CALL LIGHT WITHIN REACH.
--- NOTE | 2023-09-11 20:30 | NUR ---
PATIENT MOVES ALL HER EXTREMITIES; THOUGH PATIENT IS EXPERIENCING SOME WEAKNESS; SHE IS ABLE TO REPOSITION HERSELF IN BED. NURSE PROVIDED PATIENT WITH INSTRUCTION ON USE OF CALL LIGHT AND USE OF RAISE/LOWERING HOB. PATIENT ABLE TO USE CALL LIGHT INSTRUCTED. CALL LIGHT WITHIN REACH.
[2023-09-11] MEDS ORDERED: QUETIAPINE FUMARATE 25 MG TAB PO SCH (21:00)
[2023-09-12] VITALS (13 sets, daily range): BP systolic 139–170; BP diastolic 80–99
--- NOTE | 2023-09-12 | NUR ---
PATIENT ADVISED NURSE THAT SHE WAS EXPERIENCING PAIN FROM HER RHEUMATOID ARTHRITIS. NURSE CALLED DR. RAMIREZ AND OBTAINED GABAPENTIN AND IBUPROFEN MEDICATION ORDERS. NURSE GAVE PATIENT GABAPENTIN ORDERED. PATIENT RESTING IN BED; TOLERATING BIPAP; VITAL SIGNS REMAIN STABLE. CALL LIGHT WITHIN REACH.
[2023-09-12] MEDS ORDERED: ACETAMINOPHEN 500 MG TAB PO PRN (00:30)
[2023-09-12] MEDS ORDERED: IBUPROFEN 800 MG TAB PO PRN (00:30)
[2023-09-12] MEDS ORDERED: GABAPENTIN 300 MG CAP PO SCH (00:30)
--- NOTE | 2023-09-12 04:00 | NUR ---
PATIENT TOLERATING BIPAP; PATIENT'S OXYGEN SATURATION CONSISTENTLY ABOVE 96%; PATIENT CONTINUES TO HAVE INCREASED WORK OF BREATHING. PATIENT ABLE TO TOLERATE TAKING SIPS OF WATER AND JUICE WHILE TAKING SHORT BREAKS FROM BIPAP. PATIENT EXPRESSED DESIRE TO HAVE A PROTEIN SHAKE. NURSE ASSISTED PATIENT WITH ENSURE PROTEIN SHAKE. PATIENT CONTINUED ON BIPAP AFTER CONSUMING PROTEIN SHAKE. NO PROBLEMS NOTED. BIPAP SETTINGS REMAIN THE SAME. PATIENT'S BREATH SOUNDS CLEAR WITH SOME EXPIRATORY WHEEZES, DIMINISHED IN THE BASES. CHG WIPES DONE; MIKY/CATH CARE PROVIDED. PATIENT ABLE TO REPOSITION SELF IN BED; CALL LIGHT WITHIN REACH. LIGHT WITHIN REACH.
[2023-09-12 05:27] LABS: HEMATOCRIT 34.5 % (35.0-50.0); MCH 29.4 (27-36); MCHC 31.8 g/dl (30-36); MCV 92.2 fl (81-99); PLATELET COUNT 221 K/uL (140-440); RBC 3.74 M/ul (4.3-5.7); RDW 13.5 (10.5-15.0)
[2023-09-12 05:35] LABS: ANION GAP 9.8 (7-21); BUN/CREATININE RATIO 18.96 (6.0-28.6); CALCIUM 8.6 mg/dL (8.5-10.1); CREATININE, SERUM 0.58 mg/dL (0.55-1.02); MAGNESIUM 2.2 mg/dL (1.8-2.4); POTASSIUM 3.8 mmol/L (3.5-5.1)
[2023-09-12 05:38] LABS: LYMPHOCYTES, MANUAL DIFF 10; MONOCYTES, MANUAL DIFF 9; NEUTROPHILS, MANUAL DIFF 80
--- NOTE | 2023-09-12 06:30 | NUR ---
PATIENT ADVISED NURSE THAT SHE HAD TO HAVE A BOWEL MOVEMENT. NURSE ASSISTED PATIENT ONTO BEDPAN. PATIENT HAD A LARGE SOFT BROWN BOWEL MOVEMENT. NURSE PROVIDED PERIANAL/CATH CARE. PATIENT ON BIPAP. PATIENT TOLERATED ACTIVITY. CALL LIGHT WITHIN REACH.
[2023-09-12 07:06] LABS: PH, VENOUS 7.385 (7.31-7.41)
--- NOTE | 2023-09-12 07:45 | NUR ---
REPORT RECEIVED FROM LUIS BOWLES. PT AWAKE AND HAPPY TO BE ON THE VAPOTHERM NOW INSTEAD OF BIPAP. TOLERATING WELL. SET AT 34\30.
--- NOTE | 2023-09-12 09:13 | NUR ---
PT CALLED TO HAVE A BM. PLACED ON BED DOZIER AND THEN BED LINENS CHANGED. PT NEEDED BUMPED UP TO 35\35 WITH SATS IN LOW 80'S. AFTER RECOVERING ABLE TO TITRATE BACK DOWN.
--- NOTE | 2023-09-12 09:25 | NUR ---
PT ATTEMPTED TO EAT BREAKFAST BUT WAS ABLE TO GET AN ENTIRE ENSURE DOWN. ASKED FOR BLINDS LOWERED AND TAKING A NAP. SETTINGS ON 32\26 SATS 95%.
--- NOTE | 2023-09-12 09:39 | NUR ---
PT PLACED BACK ON BIPAP WITH AEROGEN [employer].
[2023-09-12 10:13] LABS: BASE EXCESS, BLOOD GAS 4.6 mmol/L (-2-2); HCO3, BLOOD GAS 30.8 mmol/L (22-26); O2 SATURATION, BLOOD GAS 96.4 % (95.0-100.0); PCO2, BLOOD GAS 53.1 mmHg (35-45); PH, BLOOD GAS 7.37 (7.35-7.45); TOTAL CO2, BLOOD GAS 32.4
--- NOTE | 2023-09-12 11:38 | NUR ---
PT CALLED TO BE SWITCHED BACK TO THE VAPOTHERM. TOLERATING WELL SATS 92% ON 33L 28%.
--- NOTE | 2023-09-12 13:23 | NUR ---
PT UP TO BEDSIDE COMMODE. VERY WEAK BUT INSISTANT ON GETTING UP. TOLERATED FINE. BACK TO BED AND PLACED BIPAP ON. GIVEN SCHEDULED NEB AND HEP LOCKED BLUE AND BROWN PORTS.
[2023-09-12] MEDS ORDERED: KETAMINE in NS 50 MG/5 ML SYR IV ONE (14:30)
--- NOTE | 2023-09-12 15:42 | NUR ---
WENT IN ROOM TO EMPTY MEE TERRELL PT WAS EMOTIONAL. STATE SHE MISSES HER FAMILY. ASKED IF I COULD CALL THE PERSON ON HER CHART AND SHE STATED THAT WOULD BE NICE.
[2023-09-12 18:16] LABS: PH, VENOUS 7.34 (7.31-7.41)
--- NOTE | 2023-09-12 18:38 | NUR ---
PT REQ MEDICATION FOR ANXIETY. PER EMAR NOT DUE UNTIL 2039. PT NOTIFED, NEB TX AND PRN PAIN MED GIVEN PER EMAR. PAIN 09/17. DENIES ANY NEEDS AT THIS TIME, CALL LIGHT WITHIN REACH
--- NOTE | 2023-09-12 19:44 | NUR ---
SBAR REPORT RECEIVED FROM LUIS SANDHU. ALL EVENTS OF THE DAY WERE DISCUSSED AND PLAN OF CARE REVIEWED. ZEHRA IS NOTED TO BE PLEASANT AND ORIENTD X4. SCOOBY FERNANDEZ AND RT VERDIN AT BEDSIDE. SCHEDULED NEB TREATMENT BEING DELIVERED. SAFETY CHECK OF ROOM PERFORMED. NO NEEDS IDENTIFIED AT THIS TIME.
--- NOTE | 2023-09-12 20:02 | NUR ---
PM CARES PERFORMED ICLUDING WARM BLANKET, REPOSITION, AND LINE CARE. 111 RIJ PATENT AND INTACT. 125NS GTT GOING THROUGH WHITE PORT. BLUE AND BROWN SALINE LOCKED. NEURO- ORIENTED X 3, FORGETTFUL, MOVES ALL EXTREMITIES, PERRL, ABLE TO EXPRESS NEEDS AND DESIRES, ENDORSES PAIN IN HIPS 6/10. PRN MEDS WILL BE GIVEN WHEN ABLE CARDIAC- CABAN TEMP 100.0, NSR, HTN 170/88 (112), TRACE EDEMA RIGHT HAND, PALPABLE RADIAL AND PEDAL PULSES, CAP REFILL LESS THAN 3 SECONDS RESP- VAPOTHERM 30L/ 28%, 91%M SPO2, BREATH SOUNDS DIMINISHED IN ALL LOBES, EXPIRATORY WHEEZES IN RIGHT UPPER LOBE GI/- ABDOMEN SOFT AND NON TENDER, ENDORSES A GOOD APPETITE, INDWELLING CABAN CATHETER WITH GREAT URINE PRODUCTION, DIARRHEA ENDORSED FROM DAY SHIFT, NORMOACTIVE BOWEL TONES INT- SEE ASSESSMENT
[2023-09-12] MEDS ORDERED: QUETIAPINE FUMARATE 25 MG TAB PO SCH (21:00)
--- NOTE | 2023-09-12 21:04 | NUR ---
ROUNDED WITH MD RAMIREZ REGARDING HTN. VERBAL ORDER FOR HYDRALAZINE 10MG Q6 FOR SBP GREATER THAN 160. 2100 BP 145/86 (103) BM- DIARRHEA. CDIFF SAMPLE COLLECTED. IF NEGATIVE THEN IMODIUM WILL BE GIVEN
[2023-09-12] MEDS ORDERED: hydrALAZINE HCL 20 MG/ML VIAL IV PRN (21:30)
--- NOTE | 2023-09-12 22:09 | NUR ---
ZEHRA ENDORSES COMFORT THIS HOUR. UROMETER EMPTIED FOR 500CC OF CLEAR YELLOW URINE. REPOSITIONED AND NESTED IN BED WITH 2 P ASSIST
[2023-09-13] VITALS (16 sets, daily range): BP systolic 127–167; BP diastolic 63–119
--- NOTE | 2023-09-13 | NUR ---
ZEHRA IS RESTING IN BED WITH EYES CLOSED. SHE ENDORSES COMFORT AND REQUESTED CLEAR ENSURE. 120CC INTAKE. 225CC URINE OUTPUT. BP REMAINS WITHIN ORDERED PERAMETERS.
--- NOTE | 2023-09-13 01:28 | NUR ---
PATIENT ZEHRA REQUESTED 10 CHICKEN NUGGETS, FRIES, AND A LARGE CHOCOLATE MILKSHAKE FROM [employer]. THIS RN RE-ORIENTED ZEHRA TO THE TIME (0130). ZEHRA BEGAN TO LAUGH AND STATED THAT THIS MEAL WILL BE THE "FIRST THING SHE GETS" WHEN SHE GETS OUT OF THE HOSPITAL A VICTORY MEAL. SHE IS IN GREAT SPIRITS AND DENIES ANY OTHER NEEDS AT THIS TIME.
--- NOTE | 2023-09-13 02:54 | NUR ---
CL DRESSING CHANGE DUE TO TAPE COMIN UP AROUND HER NECK. PATIENT ZEHRA TOLERATED THIS CHANGE WELL AND WAS PLEASANT/COMPLIANT DURING THE PROCESS. CLEAR ENSURE GIVEN WHICH WAS CONSUMED ENTIRELY. ZEHRA REMAINS HAPPY AND GRATEFUL FOR CARE RECEIVED. CABAN UROMETER TIPPED FOR 125CC OF CLEAR YELLOW URINE. REPOSITION ONTO RIGHT SIDE COMPLETED
--- NOTE | 2023-09-13 04:27 | NUR ---
ZEHRA CALLED TO REPORT RESTROOM NEEDS. PLACED ON BEDPAN. MEDIUM SIZED STOOL WITH LIQUID CONSISTENCY. VAPOTHERM NOW IN USE. 35L/ 30%. BREATH SOUNDS DIMINISHED WITH EXPIRATORY WHEEZES. ZEHRA IS REQUESTING A "CHILL PILL". PRM ANALGESIC WILL BE GIVEN ALONG WITH PRN HYDRALAZINE FOR HTN.
--- NOTE | 2023-09-13 05:48 | NUR ---
ZEHRA CALLED TO REPORT RESTROOM NEEDS. BEDPAN PLACED BUT ZEHRA THEN STATED THAT SHE CALLED IN ERROR AND ONLY HAD TO PASS GAS. THE SHE IMMEDIATELY REPORTED THAT SHE HAD TO SIT UP AND COULD NOT BREATH. O2 SATS DROPPED TO 79% DUE TO TACHYPNEA. PLACED BACK ON BIPAP. RT CALLED TO BEDSIDE WHILE THIS RN USED CALMING TECHNIQUES WHILE HOLDING ZEHRA'S HAND. ZEHRA WAS ABLE TO BE CALMED DOWN AFTER A FEW MINUTES. BIPAP 14/7 40%O2 02SATS 99%. ZEHRA REMAINS CALM AND THANKFUL FOR CARE. CL NOTED TO HAVE SOME SANGUINOUS FLUID UNDER NEW DRESSING PRESUMABLY FROM BIPAP STRAPS. WILL MONITOR FOR NOW TO DECREASE ACTIVITY ZEHRA IS STILL TACHYPNEIC AND TACHYCARDIC.
--- NOTE | 2023-09-13 06:56 | NUR ---
ZEHRA IS RESTING IN BED WATCHING TELEVISION. SHE ENDORSES COMFORT AND DENIES ANY OTHER NEEDS AT THE MOMENT.
--- NOTE | 2023-09-13 07:30 | NUR ---
REPORT RECEIVED FROM NIGHT RN - PT SITTING UP IN BED ON BIPAP WATCHING TV. DENIES COMPLAINTS AT THIS TIME. RR 24, BIPAP SETTINGS 14/7 AT 30%. PT EXCITED FOR BREAKFAST.
--- NOTE | 2023-09-13 08:30 | NUR ---
PT TRANSISTIONED TO VAPOTHERM FOR BREAKFAST - NEEDING 40L AT 30% FIO2 WHILE EATING.
[2023-09-13] MEDS ORDERED: FAMOTIDINE 20 MG TAB PO SCH (09:00)
--- NOTE | 2023-09-13 09:10 | NUR ---
LAB DRAW FROM CENTRAL LINE COMPLETE - WHITE LUMEN NOT PRODUCING BLOOD RETURN, FLUSHES WITHOUT DIFFICULTY. RT TREATMENTS COMPLETE, PT BACK ON BIPAP FOR REST. PT ATE 100% BREAKFAST AND CONINTUES TO HAVE ADEQUATE ORAL INTAKE.
[2023-09-13 09:21] LABS: RDW 13.5 (10.5-15.0)
[2023-09-13 09:25] LABS: HEMATOCRIT 37.4 % (35.0-50.0); HEMOGLOBIN 11.8 g/dL (12.0-18.0); MCH 29.2 (27-36); MCHC 31.4 g/dl (30-36); MCV 92.9 fl (81-99); PLATELET COUNT 277 K/uL (140-440); RBC 4.03 M/ul (4.3-5.7)
[2023-09-13 09:37] LABS: ALBUMIN 2.9 g/dL (3.4-5.0); ALBUMIN/GLOBULIN RATIO 0.81 (1.1-2.4); ANION GAP 9.3 (7-21); BILIRUBIN, TOTAL 0.3 ng/dL (0.2-1.0); BUN/CREATININE RATIO 25.8 (6.0-28.6); CALCIUM 8.6 mg/dL (8.5-10.1); CREATININE, SERUM 0.62 mg/dL (0.55-1.02); POTASSIUM 3.3 mmol/L (3.5-5.1); PROTEIN, TOTAL 6.5 g/dL (6.4-8.2)
[2023-09-13 09:52] LABS: LYMPHOCYTES, MANUAL DIFF 21; MONOCYTES, MANUAL DIFF 1; NEUTROPHILS, MANUAL DIFF 78
--- NOTE | 2023-09-13 10:07 | NUR ---
PT ASSISTED TO BSC FOR BM WITH PHYSICAL AND OCCUPATIONAL THERAPY. REMAINED ON BIPAP WITH TRANSFER. INCREASED WORK OF BREATHING ONCE BACK IN BED AND PT SELF POSISTIONED IN TRIPOD FOR APPROX 10 MINUTES FEELING SOB/ANXIETY - SP02 STABLE THE DURATION OF ACTIVITY. NOW RESTING COMFORTABLY ON BIPAP AND "GOING TO TAKE A NAP". CALL LIGHT AND REMOTE IN LAP, BEDSIDE TABLE IN REACH. VS ON MONITOR WNL.
[2023-09-13] MEDS ORDERED: POTASSIUM CHLORIDE 20 MEQ,LIDOCAINE HCL 1% 20 MG in DEXTROSE 5% 250 ML IV ONE (10:15)
--- NOTE | 2023-09-13 11:02 | NUR ---
PT USES CALL LIGHT TO REPORT THAT SHE "CANT BREATH". SITTING UP RIGHT IN BED IN TRIPOD POSISITON OVER ANKLES. BIPAP IN PLACE WITHOUT ALARMS, SPO2 97%. PT JUST PREVIOUSLY ADMIMISTERD PRN ANXIETY MEDICATION. RT CALLED FOR PRN NEB. PT REPORTS IMPROVEMENT AND IS LAUGHTING/JOKING BY END OF TREATMENT. CALL LIGHT IN REACH AND CURATIN CLOSED PER PT REQUEST.
--- NOTE | 2023-09-13 11:39 | NUR ---
PT RESTING IN BED ON BIPAP WITHOUT RESPIRATORY DISTRESS, VS WNL ON MONITOR. CALL LIGHT AND TABLE AT SIDE.
--- NOTE | 2023-09-13 12:10 | NUR ---
Patient was extubated the evening of 09/11/23. Regular diet now in place. Patient has a good appetite. She has no teeth so needs soft foods. She likes Ensure Clears and has drank regular Ensure in the past. Due to a BMI of 17.8 (which is improved from 8 months ago), will add Ensure Plus HP to dinner trays. RD will follow-up in 5-7 days.
--- NOTE | 2023-09-13 12:51 | NUR ---
PT PLACED ON VAPOTHERM FOR LUNCH - NO DESATURATIONS WITH TRANSISTION, REPOSISTIONING IN BED OR EATING. CURRENT SETTINGS 30L @ 35%.
--- NOTE | 2023-09-13 13:22 | NUR ---
VISITED DURING SPIRITUAL CARE ROUNDS. PT APPEARED TO BE SLEEPING. DID NOT DISTURB. PROVIDED PRAYER.
--- NOTE | 2023-09-13 14:21 | NUR ---
PT RESTING IN BED SELF POSISTIONED MOSTLY FLAT. VAPO THERM IN PLACE, FI02 28% WITH ADEQUATE SP02. PT NOTED TO BE TALKING TO SELF IN ROOM, POST ANESTHESIA NURSE REPORTS PT DID USE CALL LIGHT AND REPORT SOMEONE IN ROOM - POSSIBLY HALLUCINATING.
--- NOTE | 2023-09-13 14:42 | NUR ---
PRN NEB TX INITIATED FOR PERISTANT MILD DESATURATION AND COMPLAINTS OF SOB. CURRENT VAPOTHERM SETTINGS 35L @30%. PT HAS CALL LIGHT IN REACH, SITTING UP IN BED.
--- NOTE | 2023-09-13 15:05 | NUR ---
HOSPITALIST ROTATION CHANGE - DR. DREW UPDATED ON PT STATUS AND POC REVIEWED.
--- NOTE | 2023-09-13 15:11 | NUR ---
PATIENT ALERT IN BED. STATES SHE HAS AN OXYGEN CONCENTRATOR FROM [facility] AND WOULD LIKE TO HAVE PRESCRIPTION FOR NONINVASIVE VENT FROM [facility]. ASKED PATIENT IF SHE CURRENTLY HAS A CPAP OR BIPAP. STATES SHE HAS A "MACHINE" BUT SHE DESCRIBES IT, IT APPEARS TO BE HER CONCENTRATOR. DISCUSSED SNF. PATIENT BECOMES VERY HAPPY, SMILING AND DANCING IN BED WHEN SNF DISCUSSED. STATES SHE DOES NOT WANT TO GO BACK TO [facility] FOR [facility]. INFORMED HER SNF IS TEMPORARY, EDUCATING HER ON WHAT A SNF IS FOR AND WHY. VERBALIZES UNDERSTANDING.
--- NOTE | 2023-09-13 15:24 | NUR ---
PHYSICIAN ORDER, PROG NOTE AND RT BIPAP SETTINGS FAXED TO [facility] FOR NONINVASIVE VENT. PATIENT CHOSE [facility] FOR [employer] BECAUSE SHE ALREADY RECEIVES THEIR SERVICES FOR HER HOME OXYGEN.
--- NOTE | 2023-09-13 17:45 | NUR ---
PT RESTING IN BED ON VAPOTHERM - 35L @30%. PT REMAINS WITH GOOD APPETITE AND NOT NEEDING INCREASED FLOW WHILE EATING. PT IN GREAT SPIRITS AND VERY EXCITED TO GO TO REHAB AFTER TALKING WITH CASE MANAGEMENT.
--- NOTE | 2023-09-13 18:52 | NUR ---
PT USES CALL LIGHT TO REQUEST NEB TX - INCREASED SOB WITH SELF POSISTIONING IN TRIPOD OVER ANKLES. RT IN ROOM.
--- NOTE | 2023-09-13 20:01 | NUR ---
SBAR REPORT RECEIVED FROM LUIS VIVEROS. ALL EVENTS OF THE DAY WERE DISCUSSED AND PLAN OF CARE REVIEWED. CARE ASSUMED. DHARMESH IS NOTED TO BE ORIENTED IN ROOM AND IN PLEASANT SPIRITS. MO NEEDS ENDORSED AT THIS TIME
[2023-09-13] MEDS ORDERED: MAGNESIUM HYDROXIDE/AL HYDROX 30 ML CUP PO PRN (20:30)
--- NOTE | 2023-09-13 20:35 | NUR ---
THIS RN INTO PATIENT ROOM PATIENT TRIPODING IN BED, SHE LOOKS ANXIOUS, RR RATE 25/MIN, INCREASE WORK OF BREATHING, PATIENT REPORTS NAUSEA AND GERD SYMPTOMS.
--- NOTE | 2023-09-13 21:11 | NUR ---
ZEHRA IS IN PLEASANT SPIRITS AND ENJOYS RECOUNTING STORIES OF HER LIFE. SHE ENDORSES COMFORT " LONG I GET MY PAIN PILL AND MY HAPPY PILL" ALERT AND ORIENTED X 4, MOVES ALL EXTREMITIES, MILK OF MAGNESIA GIVEN FOR "HEARTBURN", PERRL CARDIAC- 99.1T, 92HR, NSR, PALPABLE PULSES RESP- BREATH SOUNDS DIMINISHED, DIMINISHED, PRODUCTIVE COUGH, VAPOTHERM AND BIPAP REMAIN IN USE FOR MAINTAIN 02 GREATER THAN 90% GI/- REG DIET, NORMOACTIVE BOWEL TONES IN ALL 4 QUADRANTS, INDWELLING CABAN CATHETER WITH GREAT URINE PRODUCTION, CLEAR/YELLOW INT- SEE ASSESSMENT 111R IJ PATENT AND INTACT
--- NOTE | 2023-09-13 23:18 | NUR ---
ZEHRA CALLED AND REQUESTED THAT HER HAIR BE BRUSHED AND PLACED IN A PONY TAIL AWAY FROM HER FACE. SHE ALSO STATED THAT SHE WAS READY FOR THE BIPAP SO THAT SHE COULD REST FOR THE NIGHT. BOTH REQUESTS WERE COMPLETED. RT DOCKERY AT BEDSIDE DELIVERING RESP TREATMENT.
[2023-09-14] VITALS (18 sets, daily range): BP systolic 112–165; BP diastolic 58–106
--- NOTE | 2023-09-14 00:40 | NUR ---
ZEHRA IS RESTING IN BED WITH EYES CLOSED. SHE IS CALM, COOPERATIVE, VSS PER MONITOR, AND NO NEEDS IDENTIFIED AT THIS TIME. BREATH SOUNDS ARE DIMINISHED AND TIGHT THROUGHOUT. STRONG PRDUCTIVE COUGH. SAFETY CHECK OF ROOM PERFORMED.
--- NOTE | 2023-09-14 03:04 | NUR ---
ZEHRA IS RESTING IN BED WITH EYES CLOSED. SHE APPEARS COMFORTABLE AND NO NEEDS IDENTIFIED AT THIS TIME. COMPLIANT WITH BIPAP WHICH REMAINS IN USE 21/08 30%. SAFETY CHECK OF ROOM PERFORMED.
--- NOTE | 2023-09-14 06:48 | NUR ---
ZEHRA CONTINUES TO REST COMFORTABLY IN BED. COMPLIANT ON BIPAP. MOVES ALL EXTREMITIES, NO COMPLAINTS OF DISCOMFORT OVERNIGHT, PERRL CARDIAC- SR, LH TRACE EDEMA, AFEBRILE, PRN HYDRALAZINE X1 RESP- BIPAP 14/7 30%, CLEAR, DIM, PRODUCTIVE COUGH, VAPOTHERM WHILE FULLY AWAKE, SCHEDULED AND PRN RESP TREATMENTS GI/- REGULAR DIET, NORMOACTIVE BOWEL TONES IN ALL QUADRANTS, PASSING FLATUS, INDWELLING CABAN CATHETER, INT- SEE ASSESSMENT 111 RIJ, ALL FLUSH. WHITE PORT DOES NOT ASPIRATE
--- NOTE | 2023-09-14 07:40 | NUR ---
REPORT RECEIVED FROM DESKTOP PUBLISHING ASSOCIATE RN. RT IN ROOM ADMINISTERING BREATHING TREATMENT.
[2023-09-14 09:10] LABS: BASOPHILS 0.1 % (0-2); EOSINOPHILS 2.3 % (0-6); HEMATOCRIT 37.1 % (35.0-50.0); HEMOGLOBIN 11.8 g/dL (12.0-18.0); LYMPHOCYTES 14.2 % (24-44); MCH 29.7 (27-36); MCHC 31.9 g/dl (30-36); MCV 93.1 fl (81-99); NEUTROPHILS 72.4 % (39-80); PLATELET COUNT 315 K/uL (140-440); RBC 3.99 M/ul (4.3-5.7); RDW 13.6 (10.5-15.0)
[2023-09-14 09:19] LABS: ANION GAP 5.4 (7-21); BUN/CREATININE RATIO 26.08 (6.0-28.6); CALCIUM 8.8 mg/dL (8.5-10.1); CREATININE, SERUM 0.69 mg/dL (0.55-1.02); MAGNESIUM 1.7 mg/dL (1.8-2.4); POTASSIUM 3.4 mmol/L (3.5-5.1)
--- NOTE | 2023-09-14 09:40 | NUR ---
DISCUSSED SNF WITH PATIENT. STATES HER TOP 3 CHOICES FOR SNF FACILITIES ARE [facility], [facility] AND [facility]. PATIENT DENIES FURTHER NEEDS AT THIS TIME.
--- NOTE | 2023-09-14 09:57 | NUR ---
REFERRALS FOR SNF FAXED TO [facility], [facility] AND [facility].
--- NOTE | 2023-09-14 10:52 | NUR ---
VISITED DURING SPIRITUAL CARE ROUNDS. PT RECEIVING NURSING CARE. DID NOT INTERRUPT. PROVIDED PRAYER.
[2023-09-14] MEDS ORDERED: POTASSIUM CHLORIDE 10 MEQ TABCR PO ONE (11:15)
[2023-09-14] MEDS ORDERED: MAGNESIUM SULFATE 2 GM/50 ML BAG IV ONE (11:15)
--- NOTE | 2023-09-14 11:26 | NUR ---
PATIENT WORKING WITH PT. UP TO STANDING SCALE THEN CHAIR. TOLERATED WELL.
[2023-09-14] MEDS ORDERED: MAGNESIUM SULFATE 2 GM/50 ML BAG IV SCH (11:30)
--- NOTE | 2023-09-14 12:10 | NUR ---
PATIENT REMAINS UP IN CHAIR WHILE EATING LUNCH. REPORTS SHE FEELS LESS ANXIOUS. VAPOTHERM ON AT 40L/45% FIO2. TOLERATING WELL WITH O2 SAT 98%. CALL LIGHT IN REACH.
[2023-09-14 12:51] LABS: C. DIFF TOXIN B GENE TCDB,PCR Not Detected (())
--- NOTE | 2023-09-14 13:03 | NUR ---
RECIEVED CALL FROM CHARLIE AT [facility]. THEY ARE ABLE TO ACCEPT PATIENT WHEN SHE IS MEDICALLY STABLE.
--- NOTE | 2023-09-14 13:15 | NUR ---
[facility] NOTIF[facility]. WILL NEED WHEELCHAIR VAN FOR TRANSPORT WHEN DC'D. DISCUSSED THIS WITH PATIENT. VERBALIZES UNDERSTANDING. REQUESTS THIS NURSE NOTIFY DAUGHTER OF SNF ACCEPTANCE.
--- NOTE | 2023-09-14 13:22 | NUR ---
ATTEMPT TO CONTACT MORALES YAN, NO ANSWER. WILL ATTEMPT TO CONTACT HER AGAIN.
--- NOTE | 2023-09-14 14:21 | NUR ---
CALLED CARLOSJeane, DAUGHTER, NO ANSWER. MESSAGE LEFT TO INFORM HER OF UPDATED DC PLAN. LEFT RETURN PHONE NUMBER IN MESSAGE.
--- NOTE | 2023-09-14 14:50 | NUR ---
PATIENT REMAINS UP IN CHAIR.
--- NOTE | 2023-09-14 15:19 | NUR ---
PATIENT BACK TO BED WITH GAIT BELT AND FFW. TOLERATED WELL. PATIENT REQUESTS BREATHING TREATMENT. RT IN ROOM. VAPOTHERM DECREASED TO 30L 40%FIO2. CALL LIGHT IN REACH.
--- NOTE | 2023-09-14 17:09 | NUR ---
PATIENT SITTING UP IN BED WHILE EATING SUPPER. O2 97%. VAPOTHERM PLACED AT 30L AND 30% FIO2.
--- NOTE | 2023-09-14 17:45 | NUR ---
PATIENT DESATTED ON VAPOTHERM TO 80-85%. INCREASED WOB NOTED. PLACED ON BIPAP. 14/7 FIO2 30%. TOLERATING WELL WITH O2 SAT IMPROVEMENT TO 91%.
--- NOTE | 2023-09-14 18:28 | NUR ---
PATIENT REQUESTS MEDICATION FOR ANXIETY. PLACED BACK ON VAPOTHERM AT 35L, 35% FIO2. MEDICATED PER EMAR. DENIES OTHER NEEDS. CALL LIGHT IN REACH.
--- NOTE | 2023-09-14 19:41 | NUR ---
SBAR REPORT RECEIVED FROM LUIS METZGER. ALL EVENTS OF THE DAY WERE DISCUSSED AND PLAN OF CARE REVIEWED. DHARMESH IS CURRENTLY COMFORTBLE IN BED ON THE VAPOTHERM. SHE ENDORSES COMFORT AND DENIES ANY NEEDS AT THIS TIME. NEURO- A&OX3, MOVES ALL EXTREMITIES, UNSTEADY GAIT, WEAKNESS IN LOWER EXTREMITIES, PERRL, CHRONIC GENRALIZED PAIN. PRN MEDICATIONS FOR COMFORT WILL BE GIVEN RESP- DIMINISHED BREATH SOUNDS, VAPOTHERM/ BIPAP TO MAINTAIN SATS ABOVE 90%, STRONG PRODUCTIVE COUGH, PRN AND SCHEDULED RESP TREATMENTS CARDIAC- SR, PRN HTN MEDS, SBP GOAL <160, LEFT ARM TRACE EDEMA, AFEBRILE GI/- INDWELLING CABAN CATHETER, PRODUCING GREAT URINE OUTPUT, PASSING FLATUS INT- SEE ASSESSMENT
--- NOTE | 2023-09-14 20:50 | NUR ---
ZEHRA IS LOOKING FORWARD TO HAVING HER APPLE CRISP AND ICE CREAM TONIGHT. SHE IS IN PLEASANT SPIRITS AND IS SHARING STORIES. PM CARES COMPLETED- CATHETER CARE, WARM BLANKETS, REPOSITION, BRUSHED HAIR, GOWN CHANGE MEDS GIVEN SAFETY CHECK OF ROOM PERFOMED. VSS AND WDL PER MONITOR
--- NOTE | 2023-09-14 22:06 | NUR ---
ZEHRA IS TOLERATED BIPAP WELL AND RESTING COMFORTABLY WHILE WATCHING TELEVISION. SHE ENDORSES COMFORT AT THIS TIME AND DENIES ANY NEEDS .
--- NOTE | 2023-09-14 23:16 | NUR ---
BIPAP MASK ADJUSTED, TELEVISION TURNED OFF, CURTAIN CLOSED, AND READIED FOR BED. ZEHRA ENDORSES COMFORT AND CONTINUES TO BE VERY PLEASANT AND HAPPY TO VISIT WITH NURSING STAFF.
[2023-09-15] VITALS (16 sets, daily range): BP systolic 92–145; BP diastolic 57–118
--- NOTE | 2023-09-15 00:20 | NUR ---
ZEHRA WAS NOTED TO BE CRYING IN BED FROM A "BAD DREAM". THIS RN STAYED WITH HER UNTIL SHE CALMED DOWN. SHE IS NOW ONCE AGAIN RESTING IN BED WITH EYES CLOSED. VSS AND WDL PER MONITOR
--- NOTE | 2023-09-15 01:17 | NUR ---
ZEHRA REMAINS COMPLIANT ON BIPAP. RESTING IN ROOM WITH EYES CLOSED. SHE APPEARS COMFORTABLE AND NO NEEDS AIDENTIFIED AT THIS TIME
--- NOTE | 2023-09-15 04:30 | NUR ---
ZEHRA IS RESTING IN BED WITH EYES CLOSED. BIPAP REMAINS ON. NO NEEDS IDENTIFIED AT THIS TIME
[2023-09-15 05:29] LABS: HEMATOCRIT 35.9 % (35.0-50.0); HEMOGLOBIN 11.3 g/dL (12.0-18.0); MCH 29.4 (27-36); MCHC 31.3 g/dl (30-36); PLATELET COUNT 297 K/uL (140-440); RBC 3.82 M/ul (4.3-5.7); RDW 13.4 (10.5-15.0)
[2023-09-15 05:39] LABS: EOSINOPHILS, MANUAL DIFF 2; LYMPHOCYTES, MANUAL DIFF 15; MONOCYTES, MANUAL DIFF 3; NEUTROPHILS, MANUAL DIFF 80
[2023-09-15 05:42] LABS: BUN/CREATININE RATIO 45.61 (6.0-28.6); CALCIUM 8.9 mg/dL (8.5-10.1); CREATININE, SERUM 0.57 mg/dL (0.55-1.02); MAGNESIUM 2.3 mg/dL (1.8-2.4)
--- NOTE | 2023-09-15 05:58 | NUR ---
ZEHRA USED CALL LIGHT AND REQUESTED TO BE PLACED BACK ONTO THE VAPOTHERM SHE IS READY TO START HER DAY. SHE IS IN PLEASANT SPIRITS, STATED THAT SHE HAD A GOOD NIGHT'S SLEEP, DENIES DISCOMFORT.
--- NOTE | 2023-09-15 06:00 | NUR ---
W[employer]CLOTH PROVIDED FOR FACIAL CARE, ORAL CARE, REPOSITION, MORNING SNACK, AND COFFEE PROVIDED
--- NOTE | 2023-09-15 06:34 | NUR ---
VAPOTHERM 35L/35%. ALERT AND ORIENTED X 4, MOVES ALL EXTREMITIES, PLEASANT AND COOPERATIVE, DENIES DISCOMFORT, EXPRESSES ALL NEEDS AND DESIRES, 100% OF SNACKS PROVIDED CONSUMED CARDIAC- SR OCC AND RARE OVCS, SBP GOAL OF 160 OR LESS MET, LEFT HAND TRACE EDEMA, AFEBRILE RESP- DIMINISHED, TIGHT BREATH SOUNDS, EXP WHEEZES IN LOWER LOBES, SCHEDULED AND PRN RESP TREATMENTS DELIVERED GI/- NORMOACTIVE BOWEL TONES, PASSING FLATUS, INDWELLING CABAN CATHETER PRODUCING ADEQUATE URINE OUTPUT INT- SEE ASSESSMENT STRONG PRODUCTIVE COUGH,
--- NOTE | 2023-09-15 07:26 | NUR ---
REPORT RECEIVED FROM STIFF LEG OPERATOR RN. PATIENT RESTING IN BED WHILE WATCHING TV. CALL LIGHT IN REACH.
--- NOTE | 2023-09-15 08:11 | NUR ---
PATIENT OOBTC. VAPOTHERM INCREASED TO 40L 45% FIO2 FOR ACTIVITY. REDUCED TO 30L 35% FIO2 AT REST. TOLERATED FAIR. PARTIAL LINEN CHANGE COMPLETED. RT IN ROOM FOR AM BREATHING TREATMENTS. CALL LIGHT IN REACH.
--- NOTE | 2023-09-15 08:55 | NUR ---
PERIPHERAL IV LEFT FA REMAINS PATENT, FLUSHED WITH 10ML NS, POSTIVE BLOOD RETURN.
--- NOTE | 2023-09-15 09:40 | NUR ---
DR. DREW ROUNDED, DISCUSSED PROGNOSIS AND GOALS OF CARE WITH PATIENT. PATIENT ANXIOUS AND TEARFUL. POSTAL SORTING OFFICER NOW IN ROOM VISITING WITH PATIENT.
[2023-09-15] MEDS ORDERED: DOCUSATE SODIUM 100 MG CAP PO SCH (09:44)
[2023-09-15] MEDS ORDERED: POLYETHYLENE GLYCOL 3350 1 PACKET PO ONE (09:45)
--- NOTE | 2023-09-15 10:03 | NUR ---
RESPONDED TO REQUEST FOR SPIRITUAL CARE BY LUIS METZGER. PT HAD RECEIVED CHALLENGING NEWS FROM DR. DREW AND HAD ASKED FOR A BAR ROLLER. PT UNDERSTANDABLY TEARFUL, EXPRESSED STRONG KYLE, AWARENESS OF THE DIVINE, STATED ABLE TO FIND MEANING IN LIFE AND IN , ASKED FOR ASSITANCE IN CONTACTING DAUGHTERS TO RETRIEVE PHONE FROM HER PLACE OF RESIDENCE. BAR ROLLER PROVIDED SUPPORTIVE PRESENCE, FACILITATED LIFE REVIEW, COORDINATED WITH LUIS METZGER TO FACILITATE CONTACT WITH FAMILY, PROVIDED PRAYER. PT EXPRESSED GRATITUDE, HOPE.
--- NOTE | 2023-09-15 10:18 | NUR ---
RT PLACED PATIENT ON HIFLO NC AT 8LPM. PATIENT TOLERATING WELL. O2 SAT 97%. PATIENT REMAINS UP IN CHAIR. CASE MANAGEMENT IN ROOM. CALL LIGHT IN REACH.
--- NOTE | 2023-09-15 10:33 | NUR ---
INFORMED BY LUIS METZGER, PATIENT HAD A VISIT WITH DR. DREW THIS AM REGARDING POOR PROGNOSIS AND LIKELY NEED FOR HOSPICE IN THE NEAR FUTURE. PATIENT IS ALSO UNDER THE IMPRESSION [facility] WILL BE HER NEW [facility]. THIS NURSE IN ROOM TO FURTHER DISCUSS DC PLAN. REMINDED PATIENT [facility] IS A SHORT TERM SNF STAY TO GET THERAPIES SO SHE CAN GET STRONG ENOUGH TO RETURN TO [facility]. PATIENT STATES SHE DOES NOT WANT TO GO BACK TO [facility] FOR [facility]ALING. STATES SHE HAS HAD BRIUSES AND SKIN TEARS FROM STAFF AT FACILITY. PATIENT UNABLE TO PROVIDE NAME OR HOW INJURIES OCCURRED BUT DOES STATE THE NURSE AT FACILITY WAS PREVIOUSLY MADE AWARE AND PHOTOS WERE TAKEN AT FACILITY. PATIENT STATES BEFORE SHE DECIDES WHERE SHE WANTS TO GO FROM [facility], SHE WOULD LIKE TO SPEAK WITH HER DAUGHTERS. INFORMED HER THIS NURSE WILL ALSO SPEAK TO DAUGHTER, YURIY, SO EVERYONE IS ON THE SAME PAGE FOR EXPECTIONS FOR DC PLAN AND AFTER SNF CARE.
--- NOTE | 2023-09-15 10:51 | NUR ---
PATIENT SITTING UP IN CHAIR WHILE TALKING ON CELL PHONE. REMAINS ON HIFLO NC AT 8LPM WITH O2 SAT AT 97%.
--- NOTE | 2023-09-15 11:12 | NUR ---
REVIEWED PLAN OF CARE WITH PATIENT. ALLOWED PATIENT TIME TO EXPRESS HER FEELINGS AND PROCESS THE DISCUSSION DR DREW HAD WITH HER THIS MORNING. PATIENT REPORTS SHE WAS ABLE TO SPEAK TO HER DAUGHTER SARAH THIS MORNING. EDUCATION PROVIDED ON DISEASE PROCESS. PATIENT CONTINUES ON 8LPM HIFLO NC WITH O2 SATS 97-98%, RR 18-22. PATIENT SPEAKING TO HER BROTHER ON THE PHONE AT THIS TIME. CALL LIGHT IN REACH.
--- NOTE | 2023-09-15 11:42 | NUR ---
O2 DECREASED TO 7LPM. PATIENT REMAINS TALKING ON CELL PHONE AND TOLERATING WELL. O2 97%, RR 23.
--- NOTE | 2023-09-15 12:10 | NUR ---
PATIENT WORKING WITH PT/OT. O2 HAD BEEN TITRATED BY RT TO HER BASELINE BUT INCREASED UP TO 5 WITH ACTIVITY. PATIENT AMBULATED TO BATHROOM AND BACK TO CHAIR. O2 DURING ACTIVITY RANGED FROM 87-95%. UPDATED DR. DREW, ORDER RECEIVED TO CHANGE STATUS TO MED/SURG, NO TELEMETRY BUT CONTINOUS PULSE OX.
--- NOTE | 2023-09-15 12:40 | NUR ---
PATIENT UP IN CHAIR WHILE EATING LUNCH. UPDATED ON PLAN OF CARE AND MOVEMENT OVER TO MED/SURG. PATIENT DENIES QUESTIONS AND AGREEABLE WITH PLAN.
--- NOTE | 2023-09-15 13:00 | NUR ---
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 TOLERATED WELL.
--- NOTE | 2023-09-15 13:18 | NUR ---
PT WORKED WITH PT PT WAS ON 3LPM NC SHE WEARS 21/2 AT HOME , DURING EXERCISE TO BUMPED TO 5 TO MAINTAIN SATS OVER 90%.
--- NOTE | 2023-09-15 13:20 | NUR ---
PATIENT MOVED TO MED SURG ROOM 112. REPORT GIVEN TO LUIS ABARCA. TWO RN SKIN CHECK COMPLETED. PATIENT ORIENTED TO ROOM AND SURROUNDINGS. CALL LIGHT IN REACH.
--- NOTE | 2023-09-15 13:32 | NUR ---
Patient arrived to the medical floor. Patient is on 5L oxyen per high flow nc, sp02 92%, rr 20/min. Patient sob with exertion and extended converstaion. Patient oriented to room and call light.
--- NOTE | 2023-09-15 14:43 | NUR ---
CHARLIE AT [facility] STATES THEY CAN ACCEPT PATIENT SKILLED NURSING CARE PATIENT TOMORROW AROUND 1000. CALLED AND SET UP WHEELCHAIR VAN FOR 0945 TRANSPORT TO [facility]. DISCUSSED HOSPICE WITH PATIENT, SHE PREFERS TO USE [facility]. REFERRAL FAXED.
--- NOTE | 2023-09-15 14:53 | NUR ---
SPOKE WITH PATIENT REGARDING DC TOMORROW AND ADMISSION TO [facility] TOMORROW ON HOSPICE. PATIENT VERBALIZES UNDERSTANDING. DINAH, DAUGHTER, NOTIFIED. STATES SHE IS GOING TO BRING UP SOME PATIENT BELONGINGS TONIGHT. NO FURTHER QUESTIONS. DR. DREW NOTIFIED OF DC TIME.
--- NOTE | 2023-09-15 15:39 | NUR ---
Admin ibuprofen 800mg po and vistaril 50mg po for anxiety and generalized pain.
--- NOTE | 2023-09-15 19:29 | NUR ---
REPORT RECIEVED FROM DAY SHIFT RN. PATIENT RESTING IN BED WATCHING TV. NO CURRENT NEEDS AT THIS TIME. CALL LIGHT IN REACH.
--- NOTE | 2023-09-15 20:01 | NUR ---
PATIENT RESTING IN BED WITH FAMILY IN ROOM. VS OBTAINED AND RECORDED. SCHEDULED MEDICATION ADMINSTERED. IV FLUSHED WNL. PATIENT DENIES FURTHER NEEDS AT THIS TIME. CALL LIGHT IN REACH.
--- NOTE | 2023-09-15 21:20 | NUR ---
PATIENT RESTING IN BED. PRN MEDICATION ADMINISTERED PER PATIENT REQUEST. NO FURTHER NEEDS. CALL LIGHT IN REACH.
--- NOTE | 2023-09-15 22:42 | NUR ---
PATIENT RESTING IN BED ON BACK WITH EYES CLOSED. RESPIRATIONS EVEN AND UNLABORED. O2 SAT 88%. CALL LIGHT IN REACH.
--- NOTE | 2023-09-15 23:50 | NUR ---
PATIENT RESTING IN BED ON BACK WITH EYES CLOSED. RESPIRATIONS EVEN AND UNLABORED. CALL LIGHT IN REACH.
--- NOTE | 2023-09-16 01:52 | NUR ---
PATIENT RESTING IN BED WITH EYES CLOSED. RESPIRATIONS EVEN AND UNLABORED. CALL LIGHT IN REACH.
--- NOTE | 2023-09-16 03:13 | NUR ---
PATIENT RESTING IN BED WITH EYES CLOSED. RESPIRATIONS EVEN AND UNLABORED. CALL LIGHT IN REACH.
[2023-09-16 04:36] VITALS: BP 142/66
--- NOTE | 2023-09-16 04:37 | NUR ---
BED ALARM ANSWERED. PT WANTED TO GET DRESSED. SANDWICH ARTIST TOLD PT WHAT TIME IT WAS AND THAT SHE STILL HAD TIME BEFORE HER DISCHARGE TIME. PT THEN GOT BACK IN BED. SANDWICH ARTIST OBTAINED VITALS AND I&O. PT STATES NO FURTHER NEEDS AT THIS TIME. CALL LIGHT PLACED WITHIN REACH. BED ALARM ON.
--- NOTE | 2023-09-16 05:14 | NUR ---
call light answered, pt rovided coffee with cream and sugar and milk for her cereal, pt sitting georges cross in bed and eating her breakfast. no additional needs, call light in reach and bed alarm on for safety.
[2023-09-16 05:47] VITALS: BP 142/66
--- NOTE | 2023-09-16 06:35 | NUR ---
PATIENT SITTING UP IN BED. LUNG SOUNDS DIMINISHED BILAT. PATIENT DENIES SOB, BUT APPEARS SOB WITH EXERSION. PATIENT UP TO BATHROOM TO VOID WITH MINIMAL SBA. PATIENT BACK TO BED. FRESH COFFEE PROVIDED. PATIENT DENIES FURTHER NEEDS. CALL LIGHT IN REACH.
--- NOTE | 2023-09-16 07:42 | NUR ---
REPORT RECEIVED 0705 FROM LUIS MUNOZ. PT TEARFUL AND ANXIOUS WHILE RECEIVING BREATING TREATMENT, VISTARIL ADMINISTERED. PT TALKING ABOUT FEELING ANXIOUS TO LEAVE AND NEEDING BELONGINGS FROM OTHER LIVING FACILITY. PT UP WITH SBA TO RESTROOM. PT BACK TO BED, CALL LIGHT WITHIN REACH. PT WANTS TO GET DRESSED WHILE IN BED INDEPENDENTLY TO PREPARE FOR DISCHARGE.
--- NOTE | 2023-09-16 08:10 | NUR ---
Received a call from Lyubov at [facility]. She is asking about pts CPAP/BIPAP. I spoke with Anna Marie and she did use here. Does not have one at home. Has declined to use last and the night before. updated and he will not order on dc as pt is going onto Hospice today. I called and spoke with Rebeka at [facility], confirmed plan remains for pt to leave here at 0945 and she agrees.
--- NOTE | 2023-09-16 09:00 | NUR ---
PT IN ROOM, SITTING UP IN CHAIR, NO S/S OF PAIN. PT. CONTINUES TO SEEM VERY ANXIOUS ABOUT GETTING BELONGINGS FROM ONE FACILITY TO ANOTHER. PT ON 5L VIA NC. O2 94%. CALL LIGHT WITHIN REACH.
--- NOTE | 2023-09-16 09:45 | NUR ---
IV D/C BY SACHA Mccauley RN. CATH INTACT. NO REDNESS NOTED. DRESSING APPLIED.
[2023-09-16 09:50] VITALS: BP 136/81
--- NOTE | 2023-09-16 09:50 | NUR ---
DC summary, orders, and PASRR faxed to Pratima at [facility].
--- NOTE | 2023-09-16 10:30 | NUR ---
PT LEFT UNIT VIA WHEELCHAIR. BEING TRANSPORTED TO [facility] BY WHEELCHAIR VAN. IV REMOVED, CATH INTACT. VSS. 5L 02 VIA [place]. CALLED AND GAVE REPORT TO JEANNE AT [facility] AT 1041. PT TOOK ALL BELONGINGS WITH HER. THIS RN DOUBLE CHECKED ROOM FOR ANYTHING LEFT BEHIND. PT LEFT UNIT WITH NO SIGNS OF PAIN/ DISTRESS.
--- NOTE | 2023-09-16 11:35 | NUR ---
SALINE LOCK, LEFT AC. FLUSHED WITH 10ML NORMAL SALINE. FLUSHED WELL, NO REDNESS.
== END 2023-09-16 10:30 | disposition hospice, home (50) | DRG 208 ==
LOC: ED 02:23 → CCU 08:00 → MS 09-15 13:25
PROVIDERS: Family Medicine; Internal Medicine; ADMIT Family Medicine; ATTEND Family Medicine
PROC: 5A0935A Assistance with Respiratory Ventilation, Less than 24 Consecutive Hours, High Flow/Velocity Cannula (ICD-10-PCS; principal; 2023-09-09)
PROC: 5A09357 Assistance with Respiratory Ventilation, Less than 24 Consecutive Hours, Continuous Positive Airway Pressure (ICD-10-PCS; 2023-09-09)
PROC: 3E03329 Introduction of Other Anti-infective into Peripheral Vein, Percutaneous Approach (ICD-10-PCS; 2023-09-09)
PROC: 0DH67UZ Insertion of Feeding Device into Stomach, Via Natural or Artificial Opening (ICD-10-PCS; 2023-09-09)
PROC: 4A133R1 Monitoring of Arterial Saturation, Peripheral, Percutaneous Approach (ICD-10-PCS; 2023-09-09)
PROC: 02HV33Z Insertion of Infusion Device into Superior Vena Cava, Percutaneous Approach (ICD-10-PCS; 2023-09-09)
PROC: B548ZZA Ultrasonography of Superior Vena Cava, Guidance (ICD-10-PCS; 2023-09-09)
PROC: 5A1945Z Respiratory Ventilation, 24-96 Consecutive Hours (ICD-10-PCS; 2023-09-11)
PROC: 0BH17EZ Insertion of Endotracheal Airway into Trachea, Via Natural or Artificial Opening (ICD-10-PCS; 2023-09-11)
DX: J96.21 Acute and chronic respiratory failure with hypoxia (principal); A41.9 Sepsis, unspecified organism; J44.1 Chronic obstructive pulmonary disease with (acute) exacerbation; N39.0 Urinary tract infection, site not specified; E87.29 Other acidosis; G93.40 Encephalopathy, unspecified; J96.22 Acute and chronic respiratory failure with hypercapnia; F17.210 Nicotine dependence, cigarettes, uncomplicated; M54.9 Dorsalgia, unspecified; G89.29 Other chronic pain; G40.909 Epilepsy, unspecified, not intractable, without status epilepticus; M06.9 Rheumatoid arthritis, unspecified; B19.20 Unspecified viral hepatitis C without hepatic coma; I95.9 Hypotension, unspecified; F12.10 Cannabis abuse, uncomplicated; Z90.49 Acquired absence of other specified parts of digestive tract; Z98.890 Other specified postprocedural states; Z90.89 Acquired absence of other organs; Z88.8 Allergy status to other drugs, medicaments and biological substances; Z79.899 Other long term (current) drug therapy; Z79.51 Long term (current) use of inhaled steroids; Z98.51 Tubal ligation status; I25.2 Old myocardial infarction; Z78.1 Physical restraint status
CPT/HCPCS: 31500; 36415; 36556; 36591; 36592; 36600; 51702; 70450; 71045; 80048; 80053; 80307; 81001; 82803; 83605; 83735; 83880; 84100; 84484; 85025; 87040; 87493; 87502; 93005; 93010; 94002; 94003; 94640; 94644; 94660; 94762; 94799; 97162; 97166; 97530; 97535; 99285-25; A9270; J0360; J0456; J0696; J1650; J1940; J2250; J2405; J2704; J2919; J3010; J3475; J3480; J3490; J7030; J7040; J7060; U0002